=== PATIENT | male | born 2000 | race Caucasian/White ===

== ENCOUNTER 2020-01-29 08:22 | Outpatient (CLI) | payer BC, SELFPAY ==
--- NOTE | ~2020-01-29 | CT_ITS ---
EXAMINATION: CT BRAIN W/O DATE: 01/29/2020 08:38 INDICATION: Contusion to the head. Loss of consciousness. TECHNIQUE: Computed tomography (CT) of the head was performed without intravenous contrast. The dose- length product was 599.57 mGy-cm. The mA was adjusted according to patient size. Iterative reconstruc tion technique was employed. COMPARISON: No prior studies for comparison. FINDINGS: Normal brain parenchymal volume for age. Normal garcia-white differentiation. No acute intrac ranial hemorrhage, infarction, mass or mass effect. There is a focal linear hypodensity in the right frontal lobe, axial image 33 which may represent sequela of remote trauma, infarction or less likely ischemia. No ventriculomegaly or midline shift. Midline sagittal images demonstrate a normal corpus callosum, c raniovertebral junction and sella turcica. Basilar cisterns are patent. Small focal area of soft tiss ue swelling at the parietal vertex. Paranasal sinuses and mastoids are pneumatized. No depressed skull fractures. IMPRESSION: 1. No acute intracranial abnormality. 2: Focal linear hypodensity in the right frontal lobe, axial image 33 which may represent sequela of remote trauma, infarction or less likely ischemia. Reviewed, dictated and finalized at location A.
== END 2020-01-29 08:23 ==
PROVIDERS: Visit Provider Emergency Medicine
DX: R51 Headache (principal)
CPT/HCPCS: 70450

== ENCOUNTER 2020-03-06 15:04 | Emergency (ER) | payer BC, SELFPAY ==
[2020-03-06] VITALS (25 sets, daily range): BP systolic 129–167; BP diastolic 70–107; PULSE 65–96; RESP 12–20; TEMP 36.7; O2SAT 96–100
--- NOTE | ~2020-03-06 | CT_ITS ---
EXAMINATION: CTA chest DATE: 03/06/2020 16:40 [employer] INDICATION: Chest pain TECHNIQUE: Computed tomographic angiography (CTA) of the chest was performed with 100 mL Omnipaque-35 0 intravenous contrast. The dose-length product was 510.45 mGy-cm. Maximum intensity projection 3D-re constructions of the aorta and other arteries were constructed by the technologist on a separate work station. Automated exposure control and iterative reconstruction technique were employed. COMPARISON: None. FINDINGS: No evidence for aortic aneurysm or dissection. Heart size is normal. No significant pleural or pericardial effusion. No thoracic lymphadenopathy. No endobronchial lesions. No focal airspace di sease. No endobronchial lesions. No suspicious pulmonary nodules or masses. Upper abdomen is unremark able. IMPRESSION: 1. No acute cardiopulmonary disease. No evidence for aortic aneurysm or dissection. Reviewed, dictated and finalized at location A. [employer] SUPER[employer] IMPRESSION: 1. No acute cardiopulmonary disease. No evidence for aortic aneurysm or dissect ion.
--- NOTE | 2020-03-06 15:28 | ECG_ITS ---
Measurements Intervals [place] Rate: 80 P: 37 WA: 125 QRS: 69 QRSD: 113 T: -70 QT: 340 QTc: 394 Interpretive Statements SINUS RHYTHM INTRAVENTRICULAR CONDUCTION DELAY DELAYED PRECORDIAL R/S TRANSITION MINIMAL Q WAVES- INFERIOR LEADS ST-T WAVE ABNORMALITY IN INFERIOR LEADS- CONSIDER ISCHEMIA ABNORMAL ECG Electronically Signed On 03-07-2020 7:13:03 [employer] by Eduar Neri D.O.
--- NOTE | 2020-03-06 15:29 | ED.CHESTPAIN ---
HPI - Chest Pain General Chief Complaint: Chest Pain Stated Complaint: chest tightness Time Seen by Provider: 03/06/20 15:15 Source: patient Mode of arrival: ambulatory Limitations: no limitations History of Present Illness HPI narrative: This patient is a 19 year old male with history of low testosterone, coarctation of the aorta s/p repair as a child who presents for evaluation of chest pain. He reports approximately 30 minutes ago he develop chest tightness. He states he was laying in bed when this occurred. He reports a feeling of anxiousness, palpitations, and nauseaousness. He reports his tightness has improved but he still feels it. He also reports pain to left arm. He denies any exacerbating factors. He also notices his legs felt numb at onset but that has resolved. He denies similar symptoms in the past. He denies cough, fever, dizziness or sob. Related Data Allergies Allergy/AdvReac Type Severity Reaction Status Date / Time amoxicillin Allergy Unknown Verified 03/06/20 15:14 Cephalosporins Allergy Unknown Verified 03/06/20 15:14 lisinopril Allergy Unknown Verified 03/06/20 15:14 Review of Systems Review of Systems: All systems reviewed & are unremarkable except as noted in HPI and below Constitutional: Constitutional: Denies chills and Denies fever(s) Cardiovascular: Cardiovascular: Reports chest pain, Reports rapid heart rate and Reports radiating jaw, neck or arm pain Respiratory: Respiratory: Denies cough, Denies dyspnea and Denies wheezing Gastrointestinal: Gastrointestinal: Denies abdominal pain and Reports nausea Musculoskeletal: Musculoskeletal: Denies back pain PMFSH Past Medical History Medical History (Updated 03/07/20 @ 00:00 by Kavya Lopez) Coarctation of aorta, congenital Hypothyroid Low testosterone Surgical History Surgical History (Updated 03/06/20 @ 15:37 by Vidhya Prakash MD) H/O aortic coarctation repair Exam Narrative: Exam Narrative: GENERAL: Well-appearing, well-nourished, and in no acute distress. HEAD: Normocephalic, atraumatic EYES: PERRLA and EOMI, conjunctiva clear without discharge THROAT:Mucous membranes moist, Oropharynx normal without erythema, exudate, peritonsillar swelling or fluctuance NECK: Supple, without lymphadenopathy or mass RESPIRATORY: No respiratory distress, Airway patent, Respirations non-labored, Clear to auscultation without rales, rhonchi or wheeze HEART: Regular rate and rhythm. No murmur heard. Normal peripheral pulses. ABDOMEN: Soft, nontender, nondistended, normal active bowel sounds. No masses. No rebound or guarding, No organomegaly. EXTREMITIES: No edema, normal strength with full range of motion. SKIN: Warm, dry, normal color without rash NEURO: Alert and oriented x3. CN 2-12 grossly intact. No focal deficits. PSYCH: Normal mood and affect. Course Reevaluation(s) Reevaluation #1: Patient reports he feels better. I Discussed labs and CT are unremarkable. HE will follow up with his acute care clinical nurse specialist at [facility] Date: 03/06/20 Time: 18:45 Vital Signs Vital signs: Vital Signs Temperature 98.1 F 03/06/20 15:07 Pulse Rate 89 03/06/20 15:07 Respiratory Rate 14 03/06/20 15:07 Pulse Oximetry 99 03/06/20 15:07 Temperature 98.1 F 03/06/20 15:07 Pulse Rate 84 03/06/20 18:59 Respiratory Rate 12 03/06/20 18:59 Blood Pressure 140/70 03/06/20 18:59 Pulse Oximetry 99 03/06/20 18:59 MDM - Chest Pain Lab Data Attestation: I reviewed the patient's lab results. Result diagrams: 03/06/20 15:41 03/06/20 15:41 Labs: Lab Results 03/06/20 03/06/20 03/06/20 Range/Units 15:41 15:41 15:41 WBC 5.6 (4.5-10.0) K/mm3 RBC 4.80 (4.6-6.20) M/mm3 Hgb 15.8 (14.0-18.0) g/dL Hct 44.8 (42.0-52.0) % MCV 93.3 (80-100) fl MCH 32.9 (26-34) pg MCHC 35.3 (32-36) g/dl RDW 11.5 (11.5-14.5) % Plt Count 149 L (150-375) k/
[2020-03-06 15:55] LABS: Basophils Percent Auto 0.4 % (0.2-1.2); Eosinophils Percent Auto 0.5 % (0-4.4); Hematocrit 44.8 % (42.0-52.0); Hemoglobin 15.8 g/dL (14.0-18.0); Immature Granulocyte Absolute 0.01 K/mm3 (0.00-0.031); Immature Granulocyte Percent A 0.2 % (0-0.5); Lymphocytes Absolute Auto 1.13 K/mm3 (0.9-3.2); Lymphocytes Percent Auto 20.2 % (18.3-44.2); Mean Corpuscular HGB Conc 35.3 g/dl (32-36); Mean Corpuscular Hemoglobin 32.9 pg (26-34); Mean Corpuscular Volume 93.3 fl (80-100); Mean Platelet Volume 11.6 fl (7.4-10.4); Monocytes Absolute Auto 0.4 K/mm3 (0.1-0.6); Monocytes Percent Auto 7.7 % (2.6-8.5); Platelet Count Result 149 k/mm3 (150-375); Red Cell Distribution Width 11.5 % (11.5-14.5); White Blood Count 5.6 K/mm3 (4.5-10.0)
--- NOTE | 2020-03-06 16:04 | PC.NURSE ---
Left Arm BP 151/91 Right Arm BP 129/96 Left Leg BP 167/79 Right Leg BP 155/71
[2020-03-06 16:08] LABS: Anion Gap 9 mmol/L (8-16); Blood Urea Nitrogen 14 mg/dL (9-20); Carbon Dioxide 27 mmol/L (22-30); Chloride 104 mmol/L (98-107); Estimated CRCL calculation 112 ml/min; Estimated Glomerular Filt Rate > 60; Glucose 115 mg/dL (75-110); Potassium 3.8 mmol/L (3.4-5.0); Sodium 140 mmol/L (137-145)
[2020-03-06 16:09] LABS: INR 1.1; Prothrombin Time 13.6 Seconds (11.1-14.7)
[2020-03-06 16:10] LABS: Partial Thromboplastin Time 33.1 SECONDS (22.3-36.8)
[2020-03-06 16:18] LABS: Troponin I < 0.012 ng/mL (0.000-0.034)
[2020-03-06 19:10] LABS: Troponin I < 0.012 ng/mL (0.000-0.034)
== END 2020-03-06 19:25 | disposition home or self-care (01) ==
PROVIDERS: Emergency Provider General Practice
DX: R07.9 Chest pain, unspecified (principal); Z87.74 Personal history of (corrected) congenital malformations of heart and circulatory system; E03.9 Hypothyroidism, unspecified; I45.9 Conduction disorder, unspecified; R94.31 Abnormal electrocardiogram [ECG] [EKG]
CPT/HCPCS: 36415; 71275; 80048; 84484; 85025; 85610; 85730; 93005; 99284; Q9967

== ENCOUNTER 2020-07-12 14:36 | Emergency (ER) | payer OTHER, BC, SELFPAY ==
--- NOTE | ~2020-07-12 | CT_ITS ---
EXAMINATION: CT abdomen pelvis wo con DATE: 07/12/2020 20:46 INDICATION: Left flank pain TECHNIQUE: Computed tomography (CT) of the abdomen and pelvis was performed without intravenous contr ast. The dose-length product was 667.31 mGy-cm. Automated exposure control and iterative reconstructi on technique were employed. COMPARISON: None. FINDINGS: Lung bases are unremarkable. Heart size normal. No significant pleural or pericardial effus ion. The liver, spleen, pancreas, adrenal glands and left kidney are unremarkable. There are are nonobstru cting right renal stones. Gallbladder is present. Bladder is unremarkable. Prostate gland appears enl arged. Nonobstructive bowel gas pattern. No evidence for diverticulitis. Normal appendix. No signific ant vascular abnormality. Gallbladder is present. No lymphadenopathy. No free air or free fluid. No a cute osseous abnormality. IMPRESSION: 1. Nonobstructing right renal stones, largest measuring 2-3 mm. 2: Enlarged prostate gland. Reviewed, dictated and finalized at location A. [employer]
[2020-07-12 14:43] VITALS: BP 143/70; PULSE 77; RESP 20; TEMP 36.6; O2SAT 99
[2020-07-12 15:06] LABS: Basophils Absolute Auto 0.1 K/mm3 (0.0-0.1); Basophils Percent Auto 0.8 % (0.2-1.2); Eosinophils Absolute Auto 0.1 K/mm3 (0-0.3); Hematocrit 42.8 % (42.0-52.0); Immature Granulocyte Absolute 0.01 K/mm3 (0.00-0.031); Immature Granulocyte Percent A 0.2 % (0-0.5); Lymphocytes Absolute Auto 1.36 K/mm3 (0.9-3.2); Lymphocytes Percent Auto 22.5 % (18.3-44.2); Mean Corpuscular Hemoglobin 31.9 pg (26-34); Mean Corpuscular Volume 91.1 fl (80-100); Mean Platelet Volume 11.1 fl (7.4-10.4); Monocytes Absolute Auto 0.4 K/mm3 (0.1-0.6); Monocytes Percent Auto 7.1 % (2.6-8.5); Neutrophils Absolute Auto 4.1 K/mm3 (1.3-6.7); Neutrophils Percent Auto 67.4 % (45.5-73.1); Platelet Count Result 204 k/mm3 (150-375); White Blood Count 6.1 K/mm3 (4.5-10.0)
[2020-07-12 15:14] LABS: Anion Gap 12 mmol/L (8-16); Blood Urea Nitrogen 14 mg/dL (9-20); Calcium 9.3 mg/dL (8.4-10.2); Carbon Dioxide 24 mmol/L (22-30); Chloride 105 mmol/L (98-107); Estimated CRCL calculation 126 ml/min; Estimated Glomerular Filt Rate > 60; Glucose 108 mg/dL (75-110); Potassium 4.2 mmol/L (3.4-5.0); Sodium 141 mmol/L (137-145)
[2020-07-12 16:22] LABS: Add Urine Microscopic? NO; Appearance Urine Clear (Clear); Bilirubin Urine Negative (Negative); Blood Urine Negative (Negative); Color Urine Straw (Yellow); Glucose Urine UA Negative (Negative); Ketones Urine Negative (Negative); Leukocyte Esterase Ur Negative LEU/UL (Negative); Nitrate Urine Negative (Negative); Protein Urine Negative (Negative); Specific Grav Ur 1.008 (1.001-1.035); Urobilinogen Urine Negative mg/dL (<2.0)
[2020-07-12 17:24] VITALS: BP 150/69; PULSE 77; RESP 20; TEMP 36.6; O2SAT 100
[2020-07-12 19:19] VITALS: BP 140/74; PULSE 89; RESP 20; TEMP 36.7; O2SAT 100
--- NOTE | 2020-07-12 19:41 | ED.ABDPAIN ---
HPI - Abdominal Pain General Chief Complaint: Abdominal Pain Stated Complaint: l flank pain/vomiting Time Seen by Provider: 07/12/20 19:17 History of Present Illness HPI narrative: Left flank pain intermittently for several days. Constant with paroxysms since yesterday. At times it radiates into his testicles. Sometimes feels like he needs to urinate and is not able to. Associated with vomiting when the pain is at its worst. He has noted dark urine at times. No obvious blood. Related Data Allergies Allergy/AdvReac Type Severity Reaction Status Date / Time amoxicillin Allergy Unknown Verified 03/06/20 15:14 Cephalosporins Allergy Unknown Verified 03/06/20 15:14 lisinopril Allergy Unknown Verified 03/06/20 15:14 Review of Systems Review of Systems: All systems reviewed & are unremarkable except as noted in HPI and below Constitutional: Constitutional: Denies chills and Denies fever(s) Cardiovascular: Cardiovascular: Denies chest pain Respiratory: Respiratory: Denies dyspnea Gastrointestinal: Gastrointestinal: Denies constipation, Denies diarrhea, Reports nausea and Reports vomiting Genitourinary: Genitourinary: Denies dysuria, Denies penile discharge and Reports testicular pain Neurologic: Denies weakness PMFSH Past Medical History Medical History (Updated 07/12/20 @ 21:24 by Lucio Dsouza MD) Coarctation of aorta, congenital Hypothyroid Low testosterone Surgical History Surgical History (Updated 07/12/20 @ 21:24 by Lucio Dsouza MD) H/O aortic coarctation repair S/P orchiopexy Social History Social History Smoking status: Never smoker Exam Const: General: healthy appearing, no acute distress and alert Orientation/consciousness: patient oriented x3 HENMT: Head: normal to inspection Neck: Neck: normal visual inspection and no lymphadenopathy Chest: Chest palpation & inspection: no tenderness Resp: Effort & Inspection: normal respiratory effort Auscultation: clear to auscultation bilaterally, no rales, no rhonchi and no wheezes Cardio: Jugular venous distension: no JVD Rate: regular rate Rhythm: regular rhythm Heart sounds: no murmurs GI: Inspection: non-distended GI Palp: Yes Soft to palpation and No Tenderness to palpation present (GI) Back/Spine/Pelvis: Back: no CVA tenderness Skin: General skin exam: normal color Neuro: General: patient oriented x3, moves all extremities, no focal motor deficits and CN's II-XI intact bilaterally Speech: normal speech Gait exam (Neuro): Normal gait present Extrem: General: no edema Psych: Appearance: well kempt Affect: normal affect Course Vital Signs Vital signs: Vital Signs Temperature 36.6 C 07/12/20 14:43 Pulse Rate 77 07/12/20 14:43 Respiratory Rate 20 07/12/20 14:43 Blood Pressure 143/70 H 07/12/20 14:43 Pulse Oximetry 99 07/12/20 14:43 Temperature 36.7 C 07/12/20 19:19 Pulse Rate 78 07/12/20 21:08 Respiratory Rate 18 07/12/20 21:08 Blood Pressure 142/78 H 07/12/20 21:08 Pulse Oximetry 99 07/12/20 21:08 MDM - Abdominal Pain MDM Narrative Medical decision making narrative: No stones on the left. I believe that he most likely already passed one given that his symptoms were consistent and he does have multiple on the oposite side. Differential Diagnosis Differential diagnosis: Likely calculus of kidney, constipation and other (low back pain) Medical Records Attestation: I reviewed the patient's medical records. Lab Data Attestation: I reviewed the patient's lab results. Result diagrams: 07/12/20 14:47 07/12/20 14:47 Labs: Lab Results 07/12/20 07/12/20 07/12/20 Range/Units 14:47 14:47 16:10 WBC 6.1 (4.5-10.0) K/mm3 RBC 4.70 (4.6-6.20) M/mm3 Hgb 15.0 (14.0-18.0) g/dL Hct 42.8 (42.0-52.0) % MCV 91.1 (80-100) fl MCH 31.9 (26-34) pg MCHC 35.0 (32-36) g/dl
[2020-07-12] MEDS: KETOROLAC 30 MG/ML VIAL (*BKC) IV PUSH (20:08)
[2020-07-12 21:08] VITALS: BP 142/78; PULSE 78; RESP 18; O2SAT 99
[2020-07-12 21:41] VITALS: BP 142/78; PULSE 80; RESP 18; O2SAT 99
== END 2020-07-12 21:43 | disposition home or self-care (01) ==
PROVIDERS: Emergency Medicine; Emergency Provider Emergency Medicine
DX: N20.0 Calculus of kidney (principal); E03.9 Hypothyroidism, unspecified; Z87.74 Personal history of (corrected) congenital malformations of heart and circulatory system; N40.0 Benign prostatic hyperplasia without lower urinary tract symptoms
CPT/HCPCS: 36415; 74176; 80048; 81003; 85025; 96374; 99284; J1885

== ENCOUNTER 2020-07-21 10:10 | Emergency (ER) | payer OTHER, BC, SELFPAY ==
--- NOTE | ~2020-07-21 | CT_ITS ---
EXAMINATION: CT abdomen pelvis w con DATE: 07/21/2020 11:46 INDICATION: Abdominal pain, nausea, vomiting and diarrhea TECHNIQUE: Computed tomography (CT) of the abdomen and pelvis was performed with 100 mL Omnipaque-350 intravenous contrast. Automated exposure control and iterative reconstruction technique were employe d. The dose-length product was 582.92 mGy-cm. COMPARISON: 07/12/2020 FINDINGS: Lung bases are clear. Heart size is normal. No pericardial or pleural effusion. Liver, gallbladder, s pleen, pancreas, bilateral adrenal glands and kidneys are normal. Bowels including the appendix are n ormal. Bladder and prostate are normal. No free intraperitoneal gas or fluid. No pathologically enlar ged abdominal or pelvic lymphadenopathy. Bilateral L4 pars interarticularis defects without spondylol isthesis. IMPRESSION: 1. No acute intra-abdominal/pelvic process. 2. 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
[2020-07-21 10:17] VITALS: BP 104/79; PULSE 95; RESP 18; TEMP 36.6; O2SAT 100
--- NOTE | 2020-07-21 10:37 | ED.NAVMDI ---
HPI - Nausea/Vomiting/Diarrhea General Chief complaint: Nausea/Vomiting/Diarrhea Stated complaint: vomiting Time Seen by Provider: 07/21/20 10:13 Source: patient Mode of arrival: ambulatory Limitations: no limitations History of Present Illness HPI Narrative: Patient is a 19-year-old male who presents complaining of nausea, vomiting, diarrhea and abdominal pain upon awaking this a.m. He reports he is unable to keep down fluids. He reports abdominal pain is cramping in nature and generalized throughout abdomen. He reports recent history of kidney stones, but states pain is not the same. He denies flank pain or other urinary complaints. She denies known exposure to Covid. MD elicited complaint: nausea, vomiting, diarrhea and abdominal pain Related Data Home Medications Medication Instructions Recorded Confirmed escitalopram oxalate [Lexapro] 10 mg PO DAILY 07/21/20 07/21/20 levothyroxine [Synthroid] 75 mcg PO DAILY 07/21/20 07/21/20 lorazepam [Ativan] 1 mg PO DAILY PRN 07/21/20 07/21/20 pantoprazole [Protonix] 20 mg PO QAM 07/21/20 07/21/20 Allergies Allergy/AdvReac Type Severity Reaction Status Date / Time amoxicillin Allergy Unknown Verified 07/21/20 10:22 Cephalosporins Allergy Unknown Verified 07/21/20 10:22 lisinopril Allergy Unknown Verified 07/21/20 10:22 Review of Systems Review of Systems: Narrative: CONSTITUTIONAL: Denies fever, chills, or sweats. EYES: Denies visual changes, redness, or discharge. ENT: Denies rhinorrhea, congestion, sore throat, or otalgia. CARDIOVASCULAR: Denies chest pain, palpitations, or edema. RESPIRATORY: Denies cough or dyspnea. GASTROINTESTINAL: Reports abdominal pain, nausea, vomiting, and diarrhea starting this a.m. GENITOURINARY: Denies dysuria or hematuria. SKIN: Denies rash or itching. MUSCULOSKELETAL: Denies back pain, joint pain, or myalgia. NEUROLOGIC: Denies headache, numbness, dizziness, or weakness. PSYCHIATRIC: Denies anxiety or depression. [facility] Past Medical History Medical History Coarctation of aorta, congenital Hypothyroid Low testosterone Surgical History Surgical History H/O aortic coarctation repair S/P orchiopexy Social History Social History (Updated 07/21/20 @ 10:40 by PIEDAD Vasquez) Smoking status: Never smoker Alcohol intake: never Substance use: current Substance use type: marijuana Other substance usage details: Occasional usage Living arrangements: with friend(s) Occupation/Education: student Gender identity (if verbalized by the patient): Male Comments At the time of signature, I have reviewed and agree with nursing past medical, surgical, social, and family history unless otherwise noted. Please see nursing chart for further information. There is no relevant family history pertinent to the presenting complaint. Exam Narrative: Exam Narrative: GENERAL: Ill-appearing and uncomfortable but in no acute distress. HEAD: Normocephalic, atraumatic. EYES: No redness or drainage. Conjunctiva are normal. ENT: Mucous membranes pink and moist. Throat normal. Uvula midline. NECK: AROM. Supple. No lymphadenopathy. CHEST: No respiratory distress. Clear to auscultation. HEART: Regular rate and rhythm. GI: Soft, generalized tenderness with palpation, no rebound tenderness. No distention. Bowel sounds normal in all quadrants. MUSCULOSKELETAL: No bony tenderness. EXTREMITIES: Normal range of motion. No edema. SKIN: Warm, dry, no rash. NEURO: No focal deficits. Alert and oriented x3. Gait steady. PSYCH: Normal affect. No signs of depression or anxiety. Course Vital Signs Vital signs: Vital Signs Temperature 36.6 C 07/21/20 10:17 Pulse Rate 95 07/21/20 10:17 Respiratory Rate 18 07/21/20 10:17 Blood Pressure 104/79 07/21/20 10:17 Pulse Oximetry 100 07/21/20 10:17 Temperature 36.6 C
[2020-07-21] MEDS: ONDANSETRON INJ 4 MG/2 ML VIAL IV PUSH ×2 (10:52→11:39)
[2020-07-21] MEDS: SODIUM CHLORIDE 0.9% IV 1,000 ML 999 ML IV CONT ×2 (10:52→11:39)
[2020-07-21 11:02] LABS: Basophils Percent Auto 0.3 % (0.2-1.2); Eosinophils Absolute Auto 0.1 K/mm3 (0-0.3); Eosinophils Percent Auto 1.6 % (0-4.4); Hematocrit 43.8 % (42.0-52.0); Hemoglobin 15.4 g/dL (14.0-18.0); Immature Granulocyte Absolute 0.05 K/mm3 (0.00-0.031); Immature Granulocyte Percent A 0.6 % (0-0.5); Lymphocytes Absolute Auto 1.02 K/mm3 (0.9-3.2); Lymphocytes Percent Auto 11.6 % (18.3-44.2); Mean Corpuscular HGB Conc 35.2 g/dl (32-36); Mean Corpuscular Hemoglobin 32.6 pg (26-34); Mean Corpuscular Volume 92.6 fl (80-100); Mean Platelet Volume 11.5 fl (7.4-10.4); Monocytes Absolute Auto 0.4 K/mm3 (0.1-0.6); Monocytes Percent Auto 4.4 % (2.6-8.5); Neutrophils Absolute Auto 7.2 K/mm3 (1.3-6.7); Neutrophils Percent Auto 81.5 % (45.5-73.1); Platelet Count Result 213 k/mm3 (150-375); Red Blood Count 4.73 M/mm3 (4.6-6.20); Red Cell Distribution Width 11.3 % (11.5-14.5); White Blood Count 8.8 K/mm3 (4.5-10.0)
[2020-07-21 11:11] LABS: Add Urine Microscopic? YES; Appearance Urine Clear (Clear); Bacteria Urine Trace /hpf; Bilirubin Urine Negative (Negative); Blood Urine Negative (Negative); Color Urine Yellow (Yellow); Glucose Urine UA Negative (Negative); Ketones Urine Negative (Negative); Leukocyte Esterase Ur Negative LEU/UL (Negative); Mucus Urine Rare /lpf; Nitrate Urine Negative (Negative); Protein Urine 1+ mg/dL (Negative); RBC Urine 0-2 /hpf (0-2); Specific Grav Ur 1.019 (1.001-1.035); Urobilinogen Urine Negative mg/dL (<2.0); WBC Urine 0-3 /hpf
[2020-07-21 11:16] LABS: Alanine Aminotransferase 13 U/L (4-50); Alkaline Phosphatase 69 U/L (38-126); Anion Gap 10 mmol/L (8-16); Aspartate Amino Transferase 38 U/L (17-59); Bilirubin,Total 0.6 mg/dL (0.2-1.3); Blood Urea Nitrogen 17 mg/dL (9-20); Calcium 9.7 mg/dL (8.4-10.2); Carbon Dioxide 26 mmol/L (22-30); Chloride 105 mmol/L (98-107); Estimated CRCL calculation 111 ml/min; Estimated Glomerular Filt Rate > 60; Glucose 109 mg/dL (75-110); Lipase 199 U/L (23-300); Potassium 3.7 mmol/L (3.4-5.0); Sodium 141 mmol/L (137-145)
--- NOTE | 2020-07-21 11:39 | PC.NURSE ---
Pt to CT scan at this time.
[2020-07-21 12:02] VITALS: BP 134/75; PULSE 93; RESP 17; O2SAT 100
[2020-07-21] MEDS: PROMETHAZINE HCL 25 MG/ML AMPUL 12.5 MG IV PUSH (12:02)
[2020-07-21] MEDS: KETOROLAC 30 MG/ML VIAL (*BKC) IV PUSH (12:02)
[2020-07-21 13:12] VITALS: BP 124/89; PULSE 89; RESP 17; O2SAT 98
[2020-07-22 19:28] LABS: SARS-CoV-2 RNA PCR Negative
== END 2020-07-21 13:13 | disposition home or self-care (01) ==
PROVIDERS: Emergency Provider Nurse Practitioner; PCP Family Medicine
DX: K52.9 Noninfective gastroenteritis and colitis, unspecified (principal); Z20.822 Contact with and (suspected) exposure to COVID-19; E03.9 Hypothyroidism, unspecified; Z87.74 Personal history of (corrected) congenital malformations of heart and circulatory system
CPT/HCPCS: 36415; 74177; 80053; 81001; 83690; 85025; 96361; 96374; 96375; 96376; 99284; C9803; J1885; J2405; J2550; J7030; Q9967; U0003; U0005

== ENCOUNTER 2021-06-06 10:09 | Emergency (ER) | payer OTHER, BC, SELFPAY ==
[2021-06-06 10:15] VITALS: BP 152/104; PULSE 89; RESP 18; TEMP 36.6; O2SAT 100
[2021-06-06] MEDS: SODIUM CHLORIDE 0.9% IV 1,000 ML 999 ML IV CONT (11:40)
[2021-06-06] MEDS: PROMETHAZINE HCL 25 MG/ML AMPUL 12.5 MG IV PUSH (11:40)
--- NOTE | 2021-06-06 11:51 | ED.NAVMDI ---
HPI - Nausea/Vomiting/Diarrhea General Chief complaint: Nausea/Vomiting/Diarrhea Stated complaint: nausea vomiting Time Seen by Provider: 06/06/21 11:07 History of Present Illness HPI Narrative: Patient is a 20-year-old male who presents ER with nausea and vomiting and diarrhea. Ongoing for 3 days. Endorses sweats and chills. Also has positional dizziness. No resolution with Zofran at home. No known sick contacts. No blood in stool or emesis. Denies loss of taste or smell. Has burning acid discomfort in chest. Related Data Home Medications Medication Instructions Recorded Confirmed escitalopram oxalate [Lexapro] 10 mg PO DAILY 07/21/20 07/21/20 levothyroxine [Synthroid] 75 mcg PO DAILY 07/21/20 07/21/20 lorazepam [Ativan] 1 mg PO DAILY PRN 07/21/20 07/21/20 pantoprazole [Protonix] 20 mg PO QAM 07/21/20 07/21/20 Allergies Allergy/AdvReac Type Severity Reaction Status Date / Time amoxicillin Allergy Unknown Verified 07/21/20 10:22 Cephalosporins Allergy Unknown Verified 07/21/20 10:22 lisinopril Allergy Unknown Verified 07/21/20 10:22 Review of Systems Review of Systems: All systems reviewed & are unremarkable except as noted in HPI and below Constitutional: Constitutional: Reports chills, Reports fatigue and Reports fever(s) ENT: Denies nasal congestion and Denies sore throat Cardiovascular: Cardiovascular: Denies chest pain, Denies rapid heart rate and Denies radiating jaw, neck or arm pain Respiratory: Respiratory: Denies cough and Denies dyspnea Gastrointestinal: Gastrointestinal: Reports abdominal pain, Reports heartburn, Reports diarrhea, Reports nausea and Reports vomiting Neurologic: Reports dizziness, Denies focal weakness and Denies numbness PMFSH Past Medical History Medical History (Updated 06/06/21 @ 13:43 by Tonny Feliz MD) Coarctation of aorta, congenital Hypothyroid Low testosterone Surgical History Surgical History (Updated 06/06/21 @ 11:54 by Tonny Feliz MD) H/O aortic coarctation repair History of repair of pyloric stenosis S/P orchiopexy Social History Social History (Updated 07/21/20 @ 10:40 by Harriet Ramirez, W[employer] PROCESSOR TECHNICIAN) Smoking status: Never smoker Alcohol intake: never Substance use: current Substance use type: marijuana Other substance usage details: Occasional usage Gender identity (if verbalized by the patient): Male Exam Narrative: GENERAL: Well-appearing, well-nourished, and in no acute distress. HEAD: Normocephalic, atraumatic. EYES: PERRL and EOMI. ENT: Mucous membranes moist. CHEST: Clear to auscultation. No respiratory distress. HEART: Regular rate and rhythm. Normal peripheral pulses. ABDOMEN: Soft, mild tenderness without guarding in epigastrium and left upper quadrant nondistended, normal active bowel sounds. EXTREMITIES: Normal range of motion. No edema. SKIN: Warm, dry, no rash. NEURO: Alert and oriented x3. Course Course Emergency Course: Patient reports emesis improved after administration of Phenergan. Exam benign and labs within normal limits. Discharge home with Phenergan to take in addition to his Zofran. Vital Signs Vital signs: Vital Signs Temperature 97.8 F 06/06/21 10:15 Pulse Rate 89 06/06/21 10:15 Respiratory Rate 18 06/06/21 10:15 Blood Pressure 152/104 H 06/06/21 10:15 Pulse Oximetry 100 06/06/21 10:15 Temperature 97.8 F 06/06/21 10:15 Pulse Rate 81 06/06/21 13:07 Respiratory Rate 18 06/06/21 10:15 Blood Pressure 150/93 H 06/06/21 13:07 Pulse Oximetry 100 06/06/21 10:15 MDM - Nausea/Vomiting/Diarrhea Lab Data Result diagrams: 06/06/21 11:46 06/06/21 11:46 Labs: Lab Results 06/06/21 06/06/21 Range/Units 11:46 11:46 WBC 9.7 (4.5-10.0) K/mm3 RBC 4.64 (4.6-6.20) M/mm3 Hgb 15.1 (14.0-18.0) g/dL Hct 42.8 (42.0-52.0) % MCV 92.2 (80-100) fl MCH 32.5 (26-34) pg MCHC 35.3 (32-36) g/dl RDW 11.3 L (
[2021-06-06 12:01] LABS: Basophils Percent Auto 0.4 % (0.2-1.2); Eosinophils Absolute Auto 0.1 K/mm3 (0-0.3); Eosinophils Percent Auto 0.5 % (0-4.4); Hematocrit 42.8 % (42.0-52.0); Hemoglobin 15.1 g/dL (14.0-18.0); Immature Granulocyte Absolute 0.04 K/mm3 (0.00-0.031); Immature Granulocyte Percent A 0.4 % (0-0.5); Lymphocytes Absolute Auto 0.96 K/mm3 (0.9-3.2); Lymphocytes Percent Auto 9.9 % (18.3-44.2); Mean Corpuscular HGB Conc 35.3 g/dl (32-36); Mean Corpuscular Hemoglobin 32.5 pg (26-34); Mean Corpuscular Volume 92.2 fl (80-100); Mean Platelet Volume 11.6 fl (7.4-10.4); Monocytes Absolute Auto 0.5 K/mm3 (0.1-0.6); Monocytes Percent Auto 5.5 % (2.6-8.5); Neutrophils Absolute Auto 8.1 K/mm3 (1.3-6.7); Neutrophils Percent Auto 83.3 % (45.5-73.1); Platelet Count Result 207 k/mm3 (150-375); Red Blood Count 4.64 M/mm3 (4.6-6.20); Red Cell Distribution Width 11.3 % (11.5-14.5); White Blood Count 9.7 K/mm3 (4.5-10.0)
[2021-06-06 12:10] LABS: Alanine Aminotransferase 20 U/L (4-50); Albumin Level 5.4 g/dL (3.5-5.1); Alkaline Phosphatase 69 U/L (38-126); Anion Gap 11 mmol/L (8-16); Aspartate Amino Transferase 36 U/L (17-59); Bilirubin,Total 0.8 mg/dL (0.2-1.3); Blood Urea Nitrogen 18 mg/dL (9-20); Calcium 10.2 mg/dL (8.4-10.2); Carbon Dioxide 23 mmol/L (22-30); Chloride 105 mmol/L (98-107); Estimated CRCL calculation 125 ml/min; Estimated Glomerular Filt Rate > 60; Glucose 122 mg/dL (65-110); Lipase 84 U/L (23-300); Sodium 139 mmol/L (137-145)
[2021-06-06 13:06] VITALS: BP 138/83; PULSE 75
[2021-06-06 13:07] VITALS: BP 146/92; BP 150/93; PULSE 73; PULSE 81
[2021-06-06 13:57] VITALS: BP 132/88; PULSE 78; RESP 18; O2SAT 98
== END 2021-06-06 13:59 | disposition home or self-care (01) ==
PROVIDERS: Emergency Provider Emergency Medicine
DX: K52.9 Noninfective gastroenteritis and colitis, unspecified (principal); E03.9 Hypothyroidism, unspecified
CPT/HCPCS: 36415; 80053; 83690; 85025; 96361; 96374; 99284; J2550; J7030

== ENCOUNTER 2021-09-17 17:07 | Emergency (ER) | payer BC, SELFPAY ==
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
[2021-09-17 17:10] VITALS: BP 165/86; PULSE 97; RESP 16; TEMP 36.2; O2SAT 100
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
[2021-09-17 18:17] LABS: Hematocrit 45.4 % (42.0-52.0); Hemoglobin 15.6 g/dL (14.0-18.0); Mean Corpuscular HGB Conc 34.4 g/dl (32-36); Mean Corpuscular Hemoglobin 31.3 pg (26-34); Mean Platelet Volume 10.8 fl (7.4-10.4); Platelet Count Result 243 k/mm3 (150-375); Red Blood Count 4.99 M/mm3 (4.6-6.20); Red Cell Distribution Width 11.9 % (11.5-14.5); White Blood Count 20.4 K/mm3 (4.5-10.0)
[2021-09-17] MEDS: SODIUM CHLORIDE 0.9% IV 1,000 ML 999 ML IV CONT (18:22)
[2021-09-17 18:28] VITALS: BP 146/91; PULSE 84; RESP 20; O2SAT 100
[2021-09-17 18:38] LABS: Lymphocytes Absolute Manual 1.02 K/mm3 (1.1-4.5); Monocytes Percent Manual 1 % (3-9); Neutrophils Percent Manual 94 % (46-73); Platelet Estimate Adequate (Adequate); Total Cells Counted 100
[2021-09-17 18:39] LABS: Alanine Aminotransferase 30 U/L (6-50); Alkaline Phosphatase 77 U/L (38-126); Anion Gap 19 mmol/L (8-16); Aspartate Amino Transferase 46 U/L (17-59); Bilirubin,Total 0.7 mg/dL (0.2-1.3); Blood Urea Nitrogen 17 mg/dL (9-20); Calcium 10.2 mg/dL (8.4-10.2); Carbon Dioxide 20 mmol/L (22-30); Chloride 106 mmol/L (98-107); Estimated CRCL calculation 122 ml/min; Estimated Glomerular Filt Rate > 60; Glucose 123 mg/dL (65-110); Potassium 4.3 mmol/L (3.4-5.0); Sodium 145 mmol/L (137-145)
[2021-09-17 19:17] LABS: Albumin Level > 6.0 g/dL (3.5-5.1)
--- NOTE | 2021-09-17 19:17 | PC.NURSE ---
Assuming care of pt.
[2021-09-17 19:21] VITALS: BP 125/78; PULSE 97; RESP 18; O2SAT 100
[2021-09-17 19:55] LABS: Appearance Urine Clear (Clear); Bilirubin Urine Negative (Negative); Color Urine Yellow (Yellow); Glucose Urine UA Negative (Negative); Ketones Urine 2+ mg/dL (Negative); Leukocyte Esterase Ur Negative LEU/UL (Negative); Nitrate Urine Negative (Negative); Protein Urine 1+ mg/dL (Negative); Specific Grav Ur >= 1.030 (1.001-1.035); Urobilinogen Urine 0.2 mg/dL (<2.0); pH Urine 5.5 (5.0-9.0)
[2021-09-17 19:57] LABS: Add Urine Microscopic? YES; Blood Urine Trace-Intact (Negative)
--- NOTE | 2021-09-17 19:57 | PC.NURSE ---
Addendum entered by Nicky Suresh RN 09/17/21 20:00: Correction [employer] collar from [employer]., Original Note: [employer] to bring up soft neck collar for pt.
[2021-09-17 20:04] LABS: Mucus Urine Rare /lpf; WBC Urine 0-3 /hpf
[2021-09-17] MEDS: ONDANSETRON INJ 4 MG/2 ML VIAL IV PUSH (20:14)
[2021-09-17] MEDS: KETOROLAC 30 MG/ML VIAL (*BKC) IV PUSH (20:34)
[2021-09-17] MEDS: methocarbamoL 500 MG TABLET PO (20:34)
[2021-09-17 20:57] VITALS: BP 124/67; PULSE 86; RESP 18; O2SAT 100
== END 2021-09-17 20:58 | disposition home or self-care (01) ==
PROVIDERS: Emergency Provider Nurse Practitioner Family
DX: S13.4XXA Sprain of ligaments of cervical spine, initial encounter (principal); S60.221A Contusion of right hand, initial encounter; S09.90XA Unspecified injury of head, initial encounter; E03.9 Hypothyroidism, unspecified; Z87.74 Personal history of (corrected) congenital malformations of heart and circulatory system; V48.5XXA Car driver injured in noncollision transport accident in traffic accident, initial encounter
CPT/HCPCS: 36415; 70450; 71260; 72125; 73130; 74177; 80053; 81001; 85025; 96361; 96374; 96375; 99284; A9270; J1885; J2405; J7030; L0140; Q9967

== ENCOUNTER 2021-10-28 16:16 | Emergency (ER) | payer BC, SELFPAY ==
--- NOTE | ~2021-10-28 | CT_ITS ---
EXAMINATION: CT abdomen pelvis w con DATE: 10/28/2021 18:07 INDICATION: abd pain TECHNIQUE: Computed tomography (CT) of the abdomen and pelvis was performed with 100 mL Omnipaque-300 intravenous contrast. Automated exposure control and iterative reconstruction technique were employe d. The dose-length product was 810.14 mGy-cm. COMPARISON: 09/17/2021. FINDINGS: Lower thorax: Unremarkable Liver: Normal. Biliary/Gallbladder: Gallbladder is normal. No bile duct dilation. Pancreas: No mass or duct dilation. Spleen: Normal. Adrenals:No mass. Kidneys: No mass, stone, or hydronephrosis. GI tract: No small or large bowel dilation. Normal appendix. Mesentery/Peritoneum: No ascites, mass, or free air. Retroperitoneum: No mass. Pelvis: Pelvic organs are within normal limits. Soft Tissues: Soft tissues and body wall unremarkable. Bones: No acute osseous finding. IMPRESSION: No acute abdominopelvic process. Reviewed, dictated and finalized at location K.
[2021-10-28 16:25] VITALS: BP 159/83; PULSE 87; RESP 16; TEMP 36.6; O2SAT 100
--- NOTE | 2021-10-28 16:42 | ED.GENADULT ---
HPI - General Adult General Chief complaint: Nausea/Vomiting/Diarrhea Stated complaint: vomiting since 0800 Time Seen by Provider: 10/28/21 16:29 Source: RN notes reviewed History of Present Illness HPI narrative: Patient presents emergency department from home for nausea vomiting diarrhea. Patient states symptoms again approximately 7 AM this morning. States he had numerous episodes of nausea vomiting as well as diarrhea. States is associated with abdominal pain described as cramping denies any fevers or chills chest pain shortness of breath or any other symptoms. States he not taking thing for the symptoms at home denies any other symptoms at this time Related Data Home Medications Medication Instructions Recorded Confirmed escitalopram oxalate 10 mg tablet 10 mg PO DAILY 07/21/20 07/21/20 (Lexapro) levothyroxine 75 mcg tablet 75 mcg PO DAILY 07/21/20 07/21/20 (Synthroid) lorazepam 1 mg tablet (Ativan) 1 mg PO DAILY PRN Anxiety 07/21/20 07/21/20 pantoprazole 20 mg tablet,delayed 20 mg PO QAM 07/21/20 07/21/20 release (Protonix) Allergies Allergy/AdvReac Type Severity Reaction Status Date / Time amoxicillin Allergy Unknown Verified 10/28/21 16:32 Cephalosporins Allergy Unknown Verified 10/28/21 16:32 lisinopril Allergy Unknown Verified 10/28/21 16:32 Review of Systems Review of Systems: Gen.: Denies fevers or chills ENT: Denies congestion Respiratory: Denies shortness of breath or cough CV: Denies chest pain or palpitations GI: See HPI Musculoskeletal: Denies back pain or muscle pain Neuro: Denies numbness, tingling, weakness or focal weakness Skin: Denies rash Except as documented, all other systems reviewed and negative [facility] Past Medical History Medical History Coarctation of aorta, congenital Hypothyroid Low testosterone Surgical History Surgical History H/O aortic coarctation repair History of repair of pyloric stenosis S/P orchiopexy Social History Social History Smoking status: Never smoker Alcohol intake: never Substance use: current Substance use type: marijuana Other substance usage details: Occasional usage Gender identity (if verbalized by the patient): Male Exam Narrative: APPEARANCE: No acute distress, nontoxic, resting in bed EYES: EOMI HEENT: Normocephalic, atraumatic, OMM RESPIRATORY: No respiratory distress Clear to auscultation bilaterally with no rhonchi wheezing or rales. CARDIOVASCULAR: Regular rate and rhythm without murmurs rubs or gallops. ABDOMINAL: Soft, nondistended mild diffuse tenderness palpation no rebound or guarding MUSCULOSKELETAl: Moves all extremities. No clubbing, cyanosis or edema. NEURO: Awake and alert. Following commands, speech normal, no focal deficits SKIN:: Warm, dry. No rashes lesions or abrasions PSYCHIATRIC: Normal affect/mood, Course Course Emergency Course: Reviewed old records patient with elevated white count on last visit of 09/17/2021 of 20 at that time Patient states he is feeling much better this time ready for discharge Patient states that they are feeling much better at this time. States abdominal pain has resolved. Repeat abdominal exam shows the patient's abdomen to be soft and nontender. Discussed with patient results of workup and diagnosis. Discussed need for follow-up with primary care physician, reasons to return to the emergency department in proper use of medication. Patient understands and agrees to current treatment plan Vital Signs Vital signs: Vital Signs Temperature 97.8 F 10/28/21 16:25 Pulse Rate 87 10/28/21 16:25 Respiratory Rate 16 10/28/21 16:25 Blood Pressure 159/83 H 10/28/21 16:25 Pulse Oximetry 100 10/28/21 16:25 Oxygen Delivery Room Air 10/28/21 16:25 Temperature 97.8 F 10/28/21 16:25 Pulse Rate
[2021-10-28 16:53] LABS: Basophils Percent Auto 0.2 % (0.2-1.2); Hemoglobin 15.2 g/dL (14.0-18.0); Immature Granulocyte Absolute 0.11 K/mm3 (0.00-0.031); Immature Granulocyte Percent A 0.5 % (0-0.5); Lymphocytes Absolute Auto 0.56 K/mm3 (0.9-3.2); Lymphocytes Percent Auto 2.6 % (18.3-44.2); Mean Corpuscular HGB Conc 35.3 g/dl (32-36); Mean Corpuscular Hemoglobin 31.4 pg (26-34); Mean Corpuscular Volume 88.8 fl (80-100); Mean Platelet Volume 11.1 fl (7.4-10.4); Monocytes Absolute Auto 0.6 K/mm3 (0.1-0.6); Monocytes Percent Auto 2.8 % (2.6-8.5); Neutrophils Absolute Auto 20.1 K/mm3 (1.3-6.7); Neutrophils Percent Auto 93.9 % (45.5-73.1); Platelet Count Result 251 k/mm3 (150-375); Red Blood Count 4.84 M/mm3 (4.6-6.20); Red Cell Distribution Width 11.5 % (11.5-14.5); White Blood Count 21.4 K/mm3 (4.5-10.0)
[2021-10-28] MEDS: SODIUM CHLORIDE 0.9% IV 1,000 ML 999 ML IV CONT ×2 (16:56→18:15)
[2021-10-28] MEDS: KETOROLAC 30 MG/ML VIAL (*BKC) IV PUSH (16:57)
[2021-10-28] MEDS: FAMOTIDINE 20 MG/2 ML VIAL IV PUSH (17:00)
[2021-10-28 17:06] LABS: Alanine Aminotransferase 26 U/L (6-50); Albumin Level 5.6 g/dL (3.5-5.1); Alkaline Phosphatase 79 U/L (38-126); Anion Gap 13 mmol/L (8-16); Aspartate Amino Transferase 33 U/L (17-59); Bilirubin,Total 0.9 mg/dL (0.2-1.3); Blood Urea Nitrogen 18 mg/dL (9-20); Calcium 10.6 mg/dL (8.4-10.2); Carbon Dioxide 19 mmol/L (22-30); Chloride 112 mmol/L (98-107); Estimated CRCL calculation 114 ml/min; Estimated Glomerular Filt Rate > 60; Glucose 138 mg/dL (65-110); Lipase 36 U/L (23-300); Potassium 3.7 mmol/L (3.4-5.0); Sodium 144 mmol/L (137-145)
[2021-10-28] MEDS: PROMETHAZINE HCL 25 MG/ML AMPUL 12.5 MG IV PUSH (17:07)
--- NOTE | 2021-10-28 18:16 | PC.NURSE ---
Pt not able to urinate at this time, does not want the straight cath asking for more time.
[2021-10-28 19:14] LABS: Appearance Urine Clear (Clear); Bilirubin Urine Negative (Negative); Blood Urine Negative (Negative); Color Urine Yellow (Yellow); Glucose Urine UA Negative (Negative); Ketones Urine Trace mg/dL (Negative); Leukocyte Esterase Ur Negative LEU/UL (Negative); Nitrate Urine Negative (Negative); Protein Urine Negative (Negative); Urobilinogen Urine 0.2 mg/dL (<2.0); pH Urine 8.5 (5.0-9.0)
[2021-10-28 19:24] LABS: Mucus Urine Rare /lpf; RBC Urine 0-2 /hpf (0-2); Squamous Epithelial Cell Urine Rare /hpf (Few); WBC Urine 0-3 /hpf
[2021-10-28] MEDS: LORazepam INJ (*CRX) 2 MG/ML VIAL 0.5 MG IV PUSH (19:27)
--- NOTE | 2021-10-28 19:33 | PC.NURSE ---
Pt has readily admitted to going to [employer] for the purpose of getting and smoking weed at least once a week.
[2021-10-28 19:34] LABS: Add Urine Microscopic? YES
[2021-10-28 20:46] VITALS: BP 148/86; PULSE 76; RESP 20
== END 2021-10-28 20:47 | disposition home or self-care (01) ==
PROVIDERS: Emergency Provider Emergency Medicine
DX: R11.2 Nausea with vomiting, unspecified (principal); R10.84 Generalized abdominal pain; E03.9 Hypothyroidism, unspecified; Z87.74 Personal history of (corrected) congenital malformations of heart and circulatory system
CPT/HCPCS: 36415; 74177; 80053; 81001; 83690; 85025; 96361; 96374; 96375; 99284; J1885; J2060; J2550; J7030; Q9967

== ENCOUNTER 2021-10-30 11:23 | Emergency (ER) | payer BC, SELFPAY ==
--- NOTE | ~2021-10-30 | US_ITS ---
EXAMINATION: US abdomen limited DATE: 10/30/2021 13:34 INDICATION: Right upper quadrant pain TECHNIQUE: Multiple grayscale and Doppler ultrasound images of the abdomen were obtained. COMPARISON: CT, 10/28/2021 FINDINGS: Bowel gas obscures visualization of the pancreas. The visualized portions of the pancreas a re unremarkable. The liver is normal with normal echogenicity and echotexture. No surface nodularity. Normal hepatopetal flow in the main portal vein. The gallbladder is normal with no abnormal wall thi ckening, pericholecystic fluid or stones. The normal common bile duct measures 4 mm. There was no son ographic Solano sign. IMPRESSION: 1. Normal sonographic study of the gallbladder. Reviewed, dictated and finalized at location A.
[2021-10-30 11:27] VITALS: BP 162/89; PULSE 68; RESP 18; TEMP 36.6; O2SAT 100
[2021-10-30 11:42] LABS: Basophils Absolute Auto 0.1 K/mm3 (0.0-0.1); Basophils Percent Auto 0.5 % (0.2-1.2); Eosinophils Percent Auto 0.3 % (0-4.4); Hematocrit 39.5 % (42.0-52.0); Hemoglobin 13.9 g/dL (14.0-18.0); Immature Granulocyte Absolute 0.04 K/mm3 (0.00-0.031); Immature Granulocyte Percent A 0.3 % (0-0.5); Lymphocytes Absolute Auto 1.29 K/mm3 (0.9-3.2); Lymphocytes Percent Auto 9.5 % (18.3-44.2); Mean Corpuscular HGB Conc 35.2 g/dl (32-36); Mean Corpuscular Hemoglobin 31.4 pg (26-34); Mean Corpuscular Volume 89.2 fl (80-100); Mean Platelet Volume 10.8 fl (7.4-10.4); Monocytes Absolute Auto 0.8 K/mm3 (0.1-0.6); Monocytes Percent Auto 5.8 % (2.6-8.5); Neutrophils Absolute Auto 11.3 K/mm3 (1.3-6.7); Neutrophils Percent Auto 83.6 % (45.5-73.1); Platelet Count Result 223 k/mm3 (150-375); Red Blood Count 4.43 M/mm3 (4.6-6.20); Red Cell Distribution Width 11.4 % (11.5-14.5); White Blood Count 13.5 K/mm3 (4.5-10.0)
[2021-10-30 11:52] LABS: Alanine Aminotransferase 16 U/L (6-50); Albumin Level 5.1 g/dL (3.5-5.1); Alkaline Phosphatase 65 U/L (38-126); Anion Gap 10 mmol/L (8-16); Aspartate Amino Transferase 34 U/L (17-59); Bilirubin,Total 1.4 mg/dL (0.2-1.3); Blood Urea Nitrogen 17 mg/dL (9-20); Calcium 9.7 mg/dL (8.4-10.2); Carbon Dioxide 20 mmol/L (22-30); Chloride 111 mmol/L (98-107); Estimated CRCL calculation 112 ml/min; Estimated Glomerular Filt Rate > 60; Glucose 112 mg/dL (65-110); Lipase 69 U/L (23-300); Potassium 3.3 mmol/L (3.4-5.0); Sodium 141 mmol/L (137-145)
--- NOTE | 2021-10-30 12:34 | ED.NAVMDI ---
HPI - Nausea/Vomiting/Diarrhea General Chief complaint: Nausea/Vomiting/Diarrhea Stated complaint: nausea and vomiting Time Seen by Provider: 10/30/21 12:26 History of Present Illness HPI Narrative: 21-year-old male here for evaluation of nausea vomiting and diarrhea for the past 10 days. Reports about 3 episodes of vomiting nonbloody/nonbilious emesis today and 1 episode of loose stool this morning. Attempted rectal Compazine without relief this morning. Denies fevers, chills. He does smoke marijuana. States that he is presenting to the emergency department for this issue numerous times in the past, his CT scans have been normal. He also follows with GI specialist for this issue, work-up so far has been unrevealing. Related Data Home Medications Medication Instructions Recorded Confirmed escitalopram oxalate 10 mg tablet 10 mg PO DAILY 07/21/20 07/21/20 (Lexapro) levothyroxine 75 mcg tablet 75 mcg PO DAILY 07/21/20 07/21/20 (Synthroid) lorazepam 1 mg tablet (Ativan) 1 mg PO DAILY PRN Anxiety 07/21/20 07/21/20 pantoprazole 20 mg tablet,delayed 20 mg PO QAM 07/21/20 07/21/20 release (Protonix) Allergies Allergy/AdvReac Type Severity Reaction Status Date / Time amoxicillin Allergy Unknown Verified 10/28/21 16:32 Cephalosporins Allergy Unknown Verified 10/28/21 16:32 lisinopril Allergy Unknown Verified 10/28/21 16:32 Review of Systems Review of Systems: Gen.: Denies fevers or chills Eyes: Denies eye pain or visual change ENT: Denies congestion Respiratory: Denies shortness of breath or cough CV: Denies chest pain or palpitations GI: Reports abdominal pain, nausea, emesis and diarrhea denies burning, urgency, frequency or hematuria Musculoskeletal: Denies back pain or muscle pain Neuro: Denies numbness, tingling, weakness or focal weakness Skin: Denies rash Except as documented, all other systems reviewed and negative [facility] Past Medical History Medical History Coarctation of aorta, congenital Hypothyroid Low testosterone Surgical History Surgical History H/O aortic coarctation repair History of repair of pyloric stenosis S/P orchiopexy Social History Social History Smoking status: Never smoker Alcohol intake: never Substance use: current Substance use type: marijuana Other substance usage details: Occasional usage Gender identity (if verbalized by the patient): Male Exam Narrative: APPEARANCE: Well appearing, no pain in distress, well-nourished. Head: Normocephalic and atraumatic. EYES: PERRLA/EOMI, conjunctivae clear NOSE: No nasal drainage EARS: External ear normal in appearance THROAT: Oropharynx is clear. Mucous membranes are moist. NECK: Supple. No adenopathy, no masses. RESPIRATORY: Airway patent, respirations nonlabored. Clear to auscultation bilaterally, no rales, rhonchi, wheezing. CARDIOVASCULAR: Regular rate and rhythm without murmurs, rubs, or gallops. ABDOMINAL: Tender to palpation in the upper abdomen. Normoactive bowel sounds. Soft, nondistended. No rebound tenderness or guarding. MUSCULOSKELETAL: Extremities are warm and well-perfused. Moves all extremities well. No edema. NEURO: Normal speech. No focal neurologic deficits. SKIN: Skin is warm and dry. No rashes. PSYCHIATRIC: Normal affect/mood. Course Vital Signs Vital signs: Vital Signs Temperature 97.9 F 10/30/21 11:27 Pulse Rate 68 10/30/21 11:27 Respiratory Rate 18 10/30/21 11:27 Blood Pressure 162/89 H 10/30/21 11:27 Pulse Oximetry 100 10/30/21 11:27 Oxygen Delivery Room Air 10/30/21 11:27 Temperature 97.9 F 10/30/21 11:27 Pulse Rate 68 10/30/21 11:27 Respiratory Rate 18 10/30/21 11:27 Blood Pressure 162/89 H 10/30/21 11:27 Pulse Oximetry 100 10/30/21 11:27 Oxygen Delivery Room Air
[2021-10-30] MEDS: PROMETHAZINE HCL 25 MG/ML AMPUL 12.5 MG IV PUSH (12:54)
[2021-10-30] MEDS: SODIUM CHLORIDE 0.9% IV 1,000 ML 999 ML IV CONT ×2 (12:55→14:21)
[2021-10-30] MEDS: PROCHLORPERAZINE EDISYLATE 10 MG/2 ML VIAL IV PUSH (14:20)
[2021-10-30] MEDS: diphenhydrAMINE HCl INJ 50 MG/ML VIAL 12.5 MG IV PUSH (14:20)
[2021-10-30 14:22] LABS: Appearance Urine Clear (Clear); Bilirubin Urine 1+ (Negative); Blood Urine Negative (Negative); Color Urine Yellow (Yellow); Glucose Urine UA Negative (Negative); Ketones Urine 3+ mg/dL (Negative); Leukocyte Esterase Ur Negative LEU/UL (Negative); Nitrate Urine Negative (Negative); Protein Urine Negative (Negative); Specific Grav Ur >= 1.030 (1.001-1.035); Urobilinogen Urine 0.2 mg/dL (<2.0)
[2021-10-30 14:26] LABS: Bacteria Urine Trace /hpf; Mucus Urine Rare /lpf; RBC Urine 0-2 /hpf (0-2); WBC Urine 0-3 /hpf
[2021-10-30 14:31] LABS: Add Urine Microscopic? YES
== END 2021-10-30 16:53 | disposition home or self-care (01) ==
PROVIDERS: Emergency Medicine; Emergency Provider Emergency Medicine
DX: R11.2 Nausea with vomiting, unspecified (principal); E03.9 Hypothyroidism, unspecified; Z87.74 Personal history of (corrected) congenital malformations of heart and circulatory system
CPT/HCPCS: 36415; 76705; 80053; 81001; 83690; 85025; 96361; 96374; 96375; 99284; J0780; J1200; J2550; J7030

== ENCOUNTER 2022-03-28 12:57 | Outpatient (CLI) | payer BC, SELFPAY ==
--- NOTE | ~2022-03-28 | US_ITS ---
US thyroid INDICATION: Hypothyroidism TECHNIQUE: Real-time sonographic images of the thyroid gland were obtained. COMPARISON: No prior studies for comparison. FINDINGS: The right thyroid lobe measures 3.9 x 1 x 1.3 cm. The left thyroid lobe measures 3 x 0.9 x 1.3 cm. There is normal echotexture and echogenicity throughout the thyroid gland. No discrete nodul es identified. Normal vascular flow is present. IMPRESSION: 1. Normal thyroid without discrete nodule or abnormal vascularity. Reviewed, dictated and finalized at location B. N HELPER
== END 2022-03-28 12:58 | disposition home or self-care (01) ==
PROVIDERS: PCP Family Medicine; Visit Provider Physician Assistant Medical
DX: E03.9 Hypothyroidism, unspecified (principal)
CPT/HCPCS: 76536

== ENCOUNTER 2023-03-11 16:13 | Outpatient (CLI) | payer BC, SELFPAY ==
--- NOTE | ~2023-03-11 | XR_ITS ---
Left foot Technique: AP, oblique, and lateral views were obtained. Clinical History: Pain Findings: No acute fracture or dislocation is seen. Osseous alignment is anatomic. Joint spaces are p reserved without erosive or degenerative change. Soft tissues are unremarkable. Impression: Unremarkable left foot radiographs. Reviewed, dictated and finalized at location . [employer] INST[employer]ER Impression: Unremarkable left foot radiographs.
== END 2023-03-11 16:14 ==
LOC: MICIMG 16:15
PROVIDERS: PCP Family Medicine; Visit Provider Family Medicine
DX: M79.672 Pain in left foot (principal)
CPT/HCPCS: 73630

== ENCOUNTER 2023-05-21 21:30 | Emergency (ER) | payer SELFPAY ==
[2023-05-21 21:38] VITALS: BP 141/91; PULSE 111; RESP 20; TEMP 36.6; O2SAT 97
[2023-05-22 00:01] LABS: Hematocrit 43.1 % (42.0-52.0); Hemoglobin 14.5 g/dL (14.0-18.0); Mean Corpuscular HGB Conc 33.6 g/dl (32-36); Mean Corpuscular Volume 95.1 fl (80-100); Mean Platelet Volume 11.4 fl (7.4-10.4); Platelet Count Result 213 k/mm3 (150-375); Red Blood Count 4.53 M/mm3 (4.6-6.20); Red Cell Distribution Width 11.9 % (11.5-14.5); White Blood Count 10.8 K/mm3 (4.5-10.0)
[2023-05-22] MEDS: SODIUM CHLORIDE 0.9% IV 1,000 ML 999 ML IV CONT ×2 (00:08→00:35)
[2023-05-22 00:11] LABS: Alanine Aminotransferase 88 U/L (6-50); Albumin Level 5.1 g/dL (3.5-5.1); Alkaline Phosphatase 62 U/L (38-126); Anion Gap 15 mmol/L (8-16); Aspartate Amino Transferase 39 U/L (17-59); Bilirubin,Total 0.5 mg/dL (0.2-1.3); Blood Urea Nitrogen 23 mg/dL (9-20); Calcium 10.1 mg/dL (8.4-10.2); Carbon Dioxide 21 mmol/L (22-30); Chloride 110 mmol/L (98-107); Estimated CRCL calculation 123 ml/min; Estimated Glomerular Filt Rate > 60; Glucose 130 mg/dL (65-110); Lipase 23 U/L (23-300); Potassium 3.5 mmol/L (3.4-5.0); Sodium 146 mmol/L (137-145)
[2023-05-22 00:21] LABS: Neutrophils Percent Manual 88 % (46-73); Total Cells Counted 100
[2023-05-22 00:22] LABS: Band Neutrophils Percent 6 % (0-6); Lymphocytes Absolute Manual 0.32 K/mm3 (1.1-4.5); Lymphocytes Percent Manual 3 % (18-44); Monocytes Absolute Manual 0.32 K/mm3 (0.1-0.90); Monocytes Percent Manual 3 % (3-9); Neutrophils Absolute Manual 10.15 K/mm3 (1.3-6.7); Platelet Estimate Adequate (Adequate); Schistocytes None Seen (NORMAL)
[2023-05-22] MEDS: ONDANSETRON INJ 4 MG/2 ML VIAL IV PUSH (00:34)
[2023-05-22] MEDS: FAMOTIDINE 20 MG/2 ML VIAL IV PUSH (00:34)
[2023-05-22 00:36] LABS: Influenza A QL RT-PCR Negative (Negative); Influenza B QL RT-PCR Negative (Negative); RSV RNA, RT-PCR Negative (Negative); SARS-CoV-2 RNA PCR Negative (Negative)
--- NOTE | 2023-05-22 00:37 | ED.NAVMDI ---
HPI - Nausea/Vomiting/Diarrhea General Chief complaint: Nausea/Vomiting/Diarrhea Stated complaint: n/v Time Seen by Provider: 05/21/23 23:32 Source: patient Mode of arrival: ambulatory Limitations: no limitations History of Present Illness HPI Narrative: Patient is a 22-year-old male who presents to ED with report of nausea and vomiting. Patient reports having persistent nausea and vomiting all day today, starting around 8:00 a.m. States he has been unable to keep down any food or drink. Feels very weak and dehydrated. Reports 1 episode of diarrhea. Denies rectal bleeding or melena. Denies significant abdominal pain. Denies fevers. Denies urinary complaints. Patient's significant other bedside had similar symptoms last week. Their son has also had similar symptoms. Related Data Allergies Allergy/AdvReac Type Severity Reaction Status Date / Time amoxicillin Allergy Unknown Verified 08/22/22 11:03 Cephalosporins Allergy Unknown Verified 08/22/22 11:03 lisinopril Allergy Unknown Verified 08/22/22 11:03 Review of Systems Review of Systems: CONSTITUTIONAL: Denies fever, chills, or sweats. CARDIOVASCULAR: Denies chest pain. RESPIRATORY: Denies dyspnea. GASTROINTESTINAL: See HPI GENITOURINARY: Denies dysuria or hematuria. All systems reviewed & are unremarkable except as noted in HPI and below PMFSH Past Medical History Medical History Anxiety Coarctation of aorta, congenital Gastric intestinal metaplasia GERD (gastroesophageal reflux disease) Hypothyroid Low testosterone Seasonal allergic rhinitis Surgical History Surgical History H/O aortic coarctation repair History of repair of pyloric stenosis S/P orchiopexy Family History Family History Sibling Depression Anxiety Grandparent Diabetes mellitus Grandparent Lung cancer Alcoholism Sibling Hypothyroid Social History Social History Smoking status: Never smoker Smoking end date: 05/06/19 Additional smoking assessment comments: formerly smoked cigarettes, marijuana, and vaped occasionally Alcohol intake: current Drinks per week: 1 Alcohol use details: at most, 1 beer/week, and not every week Substance use: former Substance use type: marijuana Other substance usage details: Occasional usage Last use: 09/03/2021 Lack of Transportation: No Lack of Food: Never True Current Housing: I Have Housing Concerned About Future Housing: No Difficulty Paying Gas/Electric Bills: No Difficulty Paying for Meds: No Currently Unemployed: No Education: High School Diploma/GED Living arrangements: with friend(s) Occupation/Education: occupation 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 HEAD: Normocephalic, atraumatic. ENT: MMs slightly dry. RESPIRATORY: Airway patent, respirations nonlabored. CARDIOVASCULAR: Borderline tachycardic with regular rhythm without murmurs, rubs, or gallops. Radial pulses 2+ ABDOMINAL: Soft, no significant tenderness throughout abdomen, nondistended. Normoactive BS. MUSCULOSKELETAL: Moves all extremities. No gross deformities. SKIN: Warm, dry, normal color. NEURO: A&O X3. Speech clear. Cranial nerves II-XII grossly intact. No ataxic movements. PSYCHIATRIC: Appropriate mood and affect. Normal interaction. Course Vital Signs Vital signs: Vital Signs Temperature 97.8 F 05/21/23 21:38 Pulse Rate 111 H 05/21/23 21:38 Respiratory Rate 20 05/21/23 21:38 Blood Pressure 141/91 H 05/21/23 21:38 Pulse Oximetry 97 05/21/23 21:38 Oxygen
[2023-05-22 00:39] VITALS: BP 149/93; PULSE 85; RESP 16; O2SAT 97
[2023-05-22 01:02] LABS: Appearance Urine Turbid (Clear); Bacteria Urine None Seen /hpf; Bilirubin Urine 1+ (Negative); Blood Urine Negative (Negative); Color Urine Dark Yellow (Yellow); Glucose Urine UA Negative (Negative); Hyaline Casts Urine Present /lpf; Ketones Urine 2+ mg/dL (Negative); Leukocyte Esterase Ur Negative LEU/UL (Negative); Mucus Urine Present /lpf; Need Manual Microscopic Reviewed; Nitrate Urine Negative (Negative); Protein Urine 2+ mg/dL (Negative); Squamous Epithelial Cell Urine Few /hpf (Few); WBC Urine 0-5 /hpf; pH Urine 5.5 (5.0-9.0)
[2023-05-22 01:04] LABS: Add Urine Microscopic? YES; Specific Grav Ur 1.039 (1.001-1.035)
[2023-05-22 01:50] VITALS: BP 133/70; PULSE 87; RESP 15; O2SAT 98
[2023-05-22 02:59] VITALS: BP 136/56; PULSE 87; RESP 16; O2SAT 98
== END 2023-05-22 03:01 | disposition home or self-care (01) ==
PROVIDERS: Emergency Provider Physician Assistant; PCP Family Medicine
DX: K52.9 Noninfective gastroenteritis and colitis, unspecified (principal); Z20.822 Contact with and (suspected) exposure to COVID-19; E03.9 Hypothyroidism, unspecified; K21.9 Gastro-esophageal reflux disease without esophagitis; Z87.74 Personal history of (corrected) congenital malformations of heart and circulatory system; Z87.891 Personal history of nicotine dependence
CPT/HCPCS: 36415; 80053; 81001; 83690; 85025; 87637; 96361; 96374; 96375; 99284; J2405; J7030

== ENCOUNTER 2023-07-31 11:43 | Outpatient (CLI) | payer BC, SELFPAY ==
[2023-07-31 12:40] LABS: Basophils Percent Auto 0.5 % (0.2-1.2); Eosinophils Absolute Auto 0.2 K/mm3 (0-0.3); Hematocrit 42.1 % (42.0-52.0); Immature Granulocyte Absolute 0.03 K/mm3 (0.00-0.031); Immature Granulocyte Percent A 0.5 % (0-0.5); Lymphocytes Absolute Auto 2.09 K/mm3 (0.9-3.2); Lymphocytes Percent Auto 36.7 % (18.3-44.2); Mean Corpuscular HGB Conc 33.3 g/dl (32-36); Mean Corpuscular Hemoglobin 31.4 pg (26-34); Mean Corpuscular Volume 94.4 fl (80-100); Mean Platelet Volume 11.2 fl (7.4-10.4); Monocytes Absolute Auto 0.3 K/mm3 (0.1-0.6); Neutrophils Percent Auto 53.3 % (45.5-73.1); Platelet Count Result 261 k/mm3 (150-375); Red Blood Count 4.46 M/mm3 (4.6-6.20); Red Cell Distribution Width 11.5 % (11.5-14.5); White Blood Count 5.7 K/mm3 (4.5-10.0)
[2023-07-31 12:50] LABS: Alanine Aminotransferase 14 U/L (6-50); Albumin Level 4.6 g/dL (3.5-5.1); Alkaline Phosphatase 77 U/L (38-126); Anion Gap 6 mmol/L (4-12); Aspartate Amino Transferase 29 U/L (17-59); Bilirubin,Total 0.5 mg/dL (0.2-1.3); Blood Urea Nitrogen 18 mg/dL (9-20); Calcium 9.5 mg/dL (8.4-10.2); Carbon Dioxide 27 mmol/L (22-30); Chloride 105 mmol/L (98-107); Estimated Glomerular Filt Rate > 60; Glucose 96 mg/dL (65-110); Potassium 3.9 mmol/L (3.4-5.0); Sodium 138 mmol/L (137-145)
[2023-07-31 13:19] LABS: Thyroid Stimulating Hormone 0.106 uIU/mL (0.465-4.680)
[2023-07-31 13:47] LABS: Free T4 Free Thyroxine 1.25 ng/mL (0.78-2.19); Vitamin D 25 Hydroxy 41.9 ng/mL
[2023-07-31 21:47] LABS: Iron 102 ug/dL (49-181)
[2023-07-31 21:51] LABS: Percent Iron Saturation 29 % (20-50)
[2023-08-03 07:50] LABS: EBV Nuclear Ab Interpretation Past; EBV Virus Capsid Ag IgM Ab <36.00 U/mL (<36.00)
== END 2023-07-31 11:44 | disposition home or self-care (01) ==
LOC: ANHLAB 11:44
PROVIDERS: PCP Family Medicine; Visit Provider Physician Assistant Medical
DX: E55.9 Vitamin D deficiency, unspecified (principal); R53.83 Other fatigue; E03.9 Hypothyroidism, unspecified; E53.8 Deficiency of other specified B group vitamins; E78.2 Mixed hyperlipidemia; R59.1 Generalized enlarged lymph nodes
CPT/HCPCS: 36415; 80053; 82306; 82607; 82728; 83540; 83550; 84439; 84443; 85025; 86664; 86665

== ENCOUNTER 2023-09-25 14:45 | Outpatient (CLI) | payer BC, SELFPAY ==
--- NOTE | ~2023-09-25 | US_ITS ---
EXAMINATION: US soft tissue head and neck DATE: 09/25/2023 15:31 INDICATION: Lymphadenopathy, not elsewhere classified. TECHNIQUE: Multiple grayscale and Doppler ultrasound images of the head and neck were obtained. COMPARISON: CT cervical spine 09/17/2021 FINDINGS: There is no abnormal mass or lymphadenopathy in the patient's area of concern in right subm andibular region. IMPRESSION: 1. No abnormal mass or lymphadenopathy in the patient's area of concern in right submandibular region . Reviewed, dictated and finalized at location A. IMPRESSION: 1. No abnormal mass or lymphadenopathy in the patient's area of concern in righ t submandibular region.
== END 2023-09-25 14:46 | disposition home or self-care (01) ==
PROVIDERS: PCP Physician Assistant Medical; Visit Provider Physician Assistant Medical
DX: I89.0 Lymphedema, not elsewhere classified (principal)
CPT/HCPCS: 76536

== ENCOUNTER 2023-10-21 07:37 | Outpatient (CLI) | payer BC, SELFPAY ==
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
[2023-10-21 08:01] LABS: Estimated Glomerular Filt Rate > 60
== END 2023-10-21 07:38 | disposition home or self-care (01) ==
PROVIDERS: Visit Provider Otolaryngology
DX: R22.1 Localized swelling, mass and lump, neck (principal); H92.02 Otalgia, left ear; K11.23 Chronic sialoadenitis
CPT/HCPCS: 70491; Q9967

== ENCOUNTER 2024-04-04 11:14 | Emergency (ER) | payer BC, SELFPAY ==
[2024-04-04 11:46] VITALS: BP 130/88; PULSE 58; RESP 20; TEMP 36.3; O2SAT 100
[2024-04-04 12:13] LABS: Basophils Percent Auto 0.3 % (0.2-1.2); Hematocrit 41.8 % (42.0-52.0); Hemoglobin 14.7 g/dL (14.0-18.0); Immature Granulocyte Absolute 0.03 K/mm3 (0.00-0.031); Immature Granulocyte Percent A 0.3 % (0-0.5); Lymphocytes Absolute Auto 0.73 K/mm3 (0.9-3.2); Lymphocytes Percent Auto 7.1 % (18.3-44.2); Mean Corpuscular HGB Conc 35.2 g/dl (32-36); Mean Corpuscular Hemoglobin 31.9 pg (26-34); Mean Corpuscular Volume 90.7 fl (80-100); Mean Platelet Volume 11.1 fl (7.4-10.4); Monocytes Absolute Auto 0.2 K/mm3 (0.1-0.6); Monocytes Percent Auto 1.9 % (2.6-8.5); Neutrophils Absolute Auto 9.3 K/mm3 (1.3-6.7); Neutrophils Percent Auto 90.4 % (45.5-73.1); Platelet Count Result 230 k/mm3 (150-375); Red Blood Count 4.61 M/mm3 (4.6-6.20); Red Cell Distribution Width 11.6 % (11.5-14.5); White Blood Count 10.3 K/mm3 (4.5-10.0)
--- NOTE | 2024-04-04 12:18 | PC.NURSE ---
Pt attempted to give urine sample but was unsuccessful
[2024-04-04 12:33] LABS: Alanine Aminotransferase 16 U/L (6-50); Albumin Level 5.1 g/dL (3.5-5.1); Alkaline Phosphatase 77 U/L (38-126); Anion Gap 11 mmol/L (4-12); Aspartate Amino Transferase 39 U/L (17-59); Bilirubin,Total 0.8 mg/dL (0.2-1.3); Blood Urea Nitrogen 16 mg/dL (9-20); Calcium 10.1 mg/dL (8.4-10.2); Carbon Dioxide 25 mmol/L (22-30); Chloride 110 mmol/L (98-107); Estimated CRCL calculation 105 ml/min; Estimated Glomerular Filt Rate > 60; Glucose 130 mg/dL (65-110); Lipase 48 U/L (23-300); Sodium 146 mmol/L (137-145)
[2024-04-04 13:37] LABS: Influenza A QL RT-PCR Negative (Negative); Influenza B QL RT-PCR Negative (Negative); RSV RNA, RT-PCR Negative (Negative); SARS-CoV-2 RNA PCR Negative (Negative)
[2024-04-04] MEDS: ONDANSETRON INJ 4 MG/2 ML VIAL IV PUSH (13:54)
[2024-04-04] MEDS: FAMOTIDINE 20 MG/2 ML VIAL IV PUSH (13:54)
[2024-04-04] MEDS: SODIUM CHLORIDE 0.9% IV 2,000 ML 999 ML IV CONT (13:57)
[2024-04-04] MEDS: HALOPERIDOL LACTATE 5 MG/ML VIAL IM (13:58)
[2024-04-04] MEDS: PROCHLORPERAZINE EDISYLATE 10 MG/2 ML VIAL IM (14:11)
[2024-04-04] MEDS: diphenhydrAMINE HCl INJ 50 MG/ML VIAL 25 MG IV PUSH (14:12)
[2024-04-04 14:16] VITALS: BP 149/75; PULSE 70; RESP 20; O2SAT 100
[2024-04-04 14:18] VITALS: PULSE 68; RESP 19; O2SAT 100
[2024-04-04 15:00] VITALS: BP 137/86; PULSE 78; RESP 28; O2SAT 100
--- NOTE | 2024-04-04 15:04 | ED.GENADULT ---
HPI - General Adult General Chief complaint: Nausea/Vomiting/Diarrhea Stated complaint: n/v Time Seen by Provider: 04/04/24 12:38 History of Present Illness HPI narrative: This is a 23-year-old male with history of cyclic vomiting presenting ED with nausea and vomiting. Patient says that he had some alcohol and smoked some weed from modug[place]. And starting last night he developed recurrent nausea and vomiting. He says that this feels similar to previous episodes of cyclic vomiting. He denies fevers chills chest pain difficulty breathing or diarrhea. Related Data Home Medications Medication Instructions Recorded Confirmed amlodipine 10 mg tablet 7.5 mg PO DAILY 10/07/23 omeprazole 40 mg capsule,delayed 40 mg PO DAILY 10/07/23 release Allergies Allergy/AdvReac Type Severity Reaction Status Date / Time amoxicillin Allergy Unknown Verified 10/07/23 14:29 Cephalosporins Allergy Unknown Verified 10/07/23 14:29 lisinopril Allergy Unknown Verified 10/07/23 14:29 [facility] Past Medical History Medical History Anxiety Coarctation of aorta, congenital Gastric intestinal metaplasia GERD (gastroesophageal reflux disease) Hypothyroid Low testosterone Seasonal allergic rhinitis Surgical History Surgical History H/O aortic coarctation repair History of repair of pyloric stenosis S/P orchiopexy Family History Family History Sibling Depression Anxiety Grandparent Diabetes mellitus Grandparent Lung cancer Alcoholism Sibling Hypothyroid Alcoholism Father Cancer Mother Hypertension Social History Social History Smoking status: Never smoker Smoking end date: 05/06/19 Additional smoking assessment comments: formerly smoked cigarettes, marijuana, and vaped occasionally Alcohol intake: current Drinks per week: 1 Alcohol use details: at most, 1 beer/week, and not every week Substance use: former Substance use type: marijuana Other substance usage details: Occasional usage Last use: 09/03/2021 Lack of Transportation: No Lack of Food: Never True Current Housing: I Have Housing Concerned About Future Housing: No Difficulty Paying Gas/Electric Bills: No Difficulty Paying for Meds: No Currently Unemployed: No Education: Associate Degree Difficulty w/ Childcare or Family Care: No Living arrangements: with friend(s) Occupation/Education: occupation 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 EYES: EOMI, NOSE: Atraumatic NECK: Trachea midline RESPIRATORY: No increased rate of breathing, CTAB CARDIOVASCULAR: RRR, ABDOMINAL: Non-distended soft nontender MUSCULOSKELETAl: No obvious deformities NEURO: Alert. Moving 4/4 extremities SKIN:: Warm, dry. Normal color PSYCHIATRIC: Normal affect Course Vital Signs Vital signs: Vital Signs Temperature 97.4 F L 04/04/24 11:46 Pulse Rate 58 L 04/04/24 11:46 Respiratory Rate 20 04/04/24 11:46 Blood Pressure 130/88 04/04/24 11:46 Pulse Oximetry 100 04/04/24 11:46 Temperature 97.4 F L 04/04/24 11:46 Pulse Rate 70 04/04/24 14:16 Respiratory Rate 20 04/04/24 14:16 Blood Pressure 149/75 H 04/04/24 14:16 Pulse Oximetry 100 04/04/24 14:16 Medical Decision Making MDM Narrative Medical decision making narrative: -Course: 23-year-old male presenting with nausea and vomiting. Presentation consistent with cannabinoid hyperemesis. Patient was given antiemetics with improvement. He is now tolerating p.o.. Laboratory studies within normal limits, vital signs are stable and he has a benign abdominal exam. Patient be discharged. -DDX includes but is not limited to: Gastroenteritis, food poisoning, cyclic vomiting -Co-morbidities complicating care: history of cyclic vomiting, coarctation of the aorta -Independent interpretation of studies: labs reviewed -Dx tests considered but not ordered: CT abdomen pelvis- stable vital signs benign abdominal exam -Interventions: to L normal saline, 5 mg Haldol, 20 mg Pepcid -> Compazine 10mg, Benadryl 25mg -Shared decision making / Disposition:discharged. Vital Signs Vital Signs: Vital Signs Temperature 97.4 F L 04/04/24 11:46 Pulse Rate 58 L 04/04/24 11:46 Respiratory Rate 20 11/30/24 11:46 Blood Pressure 130/88 11/30/24 11:46 Pulse Oximetry 100 04/04/24 11:46 Temperature 97.4 F L 04/04/24 11:46 Pulse Rate 70 04/04/24 14:16 Respiratory Rate 20 04/04/24 14:16 Blood Pressure 149/75 H 04/04/24 14:16 Pulse Oximetry 100 04/04/24 14:16 Lab Data 04/04/24 12:06 04/04/24 12:06 Labs: Lab Results 04/04/24 Range/Units 12:06 WBC 10.3 H (4.5-10.0) K/mm3 RBC 4.61 (4.6-6.20) M/mm3 Hgb 14.7 (14.0-18.0) g/dL Hct 41.8 L (42.0-52.0) % MCV 90.7 (80-100) fl MCH 31.9 (26-34) pg MCHC 35.2 (32-36) g/dl RDW 11.6 (11.5-14.5) % Plt Count 230 (150-375) k/mm3 MPV 11.1 H (7.4-10.4) fl Immature Gran % (Auto) 0.3 (0-0.5) % Neut % (Auto) 90.4 H (45.5-73.1) % Lymph % (Auto) 7.1 L (18.3-44.2) % [place] % (Auto) 1.9 L (2.6-8.5) % Eos % (Auto) 0.0 (0-4.4) % Baso % (Auto) 0.3 (0.2-1.2) % Lymph # (Auto) 0.73 L (0.9-3.2) K/mm3 [place] # (Auto) 0.2 (0.1-0.6) K/mm3 Eos # (Auto) 0.0 (0-0.3) K/mm3 Baso # (Auto) 0.0 (0.0-0.1) K/mm3 Abs Immat Gran (auto) 0.03 (0.00-0.031) K/mm3 Absolute Neuts (auto) 9.3 H (1.3-6.7) K/mm3 Absolute Nucleated RBC 0.000 (0.0-0.012) K/mm3 Nucleated RBC % 0.0 (0.0-0.2) % Sodium 146 H (137-145) mmol/L Potassium 4.0 (3.4-5.0) mmol/L Chloride 110 H (98-107) mmol/L Carbon Dioxide 25 (22-30) mmol/L Anion Gap 11 (4-12) mmol/L BUN 16 (9-20) mg/dL Creatinine 1.00 (0.7-1.3) mg/dL Estim Creat Clear Calc 105 ml/min Estimated GFR > 60 (59 - ) Glucose 130 H (65-110) mg/dL Calcium 10.1 (8.4-10.2) mg/dL Total Bilirubin 0.8 (0.2-1.3) mg/dL AST 39 (17-59) U/L ALT 16 (6-50) U/L Alkaline Phosphatase 77 (38-126) U/L Total Protein 8.0 (6.3-8.2) g/dL Albumin 5.1 (3.5-5.1) g/dL Lipase 48 (23-300) U/L Influenza A (RT-PCR) Negative (Negative) Influenza B (RT-PCR) Negative (Negative) RSV (RT-PCR) Negative (Negative) SARS-CoV-2 RNA (RT-PCR) Negative (Negative) Discharge Plan Discharge Clinical Impression: Cannabinoid hyperemesis syndrome Patient Disposition: Home, Self-Care Condition: Stable Instructions: Antibiotic Form, Cyclic Vomiting Syndrome (ED) Additional Instructions: You were seen in the emergency depart for nausea vomiting please use Zofran as needed. Please drink plenty of fluids. Please refrain from marijuana use. If you develop intractable nausea vomiting, abdominal pain or fevers please return ED for re-evaluation. Prescriptions: New ondansetron 4 mg tablet,disintegrating 4 mg PO Q8H PRN (Reason: nausea and vomiting) Qty: 30 0RF No Action hydrochlorothiazide 12.5 mg capsule 12.5 mg PO DAILY Qty: 90 2RF amlodipine 10 mg tablet 7.5 mg PO DAILY omeprazole 40 mg capsule,delayed release(DR/EC) 40 mg PO DAILY levothyroxine [Synthroid] 75 mcg tablet 75 mcg PO DAILY Qty: 30 6RF levothyroxine 50 mcg tablet 50 mcg PO DAILY Qty: 30 3RF Follow-up/Referrals: Vanesa Bello MD [Primary Care Provider] -
[2024-04-04 15:43] LABS: Amphetamine Screen Urine Negative (Negative); Barbiturate Screen Urine Negative (Negative); Benzodiazepines Screen Urine Negative (Negative); Cannabinoid Screen Urine Positive (Negative); Cocaine Screen Urine Negative (Negative); Methadone Screen Urine Negative (Negative); Opiate Screen Urine Negative (Negative); Phencyclidine Screen Urine Negative (Negative)
[2024-04-04 15:50] LABS: Add Urine Microscopic? YES; Appearance Urine Clear (Clear); Bacteria Urine None Seen /hpf; Bilirubin Urine Negative (Negative); Blood Urine Negative (Negative); Color Urine Yellow (Yellow); Glucose Urine UA Negative (Negative); Ketones Urine 3+ mg/dL (Negative); Leukocyte Esterase Ur Negative LEU/UL (Negative); Need Manual Microscopic Reviewed; Nitrate Urine Negative (Negative); Protein Urine Trace mg/dL (Negative); Specific Grav Ur 1.024 (1.001-1.035); Squamous Epithelial Cell Urine None Seen /hpf (Few); Urobilinogen Urine 0.2 mg/dL (<2.0); WBC Urine 0-5 /hpf (0-3)
== END 2024-04-04 15:23 | disposition home or self-care (01) ==
PROVIDERS: Emergency Provider Emergency Medicine; PCP Family Medicine
DX: R11.2 Nausea with vomiting, unspecified (principal); F12.90 Cannabis use, unspecified, uncomplicated; Z20.822 Contact with and (suspected) exposure to COVID-19; E03.9 Hypothyroidism, unspecified; K21.9 Gastro-esophageal reflux disease without esophagitis; Z87.74 Personal history of (corrected) congenital malformations of heart and circulatory system; Z87.891 Personal history of nicotine dependence
CPT/HCPCS: 36415; 80053; 80307; 81001; 83690; 85025; 87637; 96372; 96374; 96375; 99284; J0780; J1200; J1630; J2405; J7030

== ENCOUNTER 2024-04-06 07:50 | Emergency (ER) | payer BC, SELFPAY ==
[2024-04-06 07:57] VITALS: BP 151/91; PULSE 57; RESP 18; TEMP 36.8; O2SAT 99
--- NOTE | 2024-04-06 08:11 | PC.NURSE ---
Pt reports was seen and treated in this ER on 04/03/24 for same symptoms. Pt states he thinks his marijuana use is causing the n/v, reports smoke marijuana last night.
--- NOTE | 2024-04-06 08:18 | ED.NAVMDI ---
HPI - Nausea/Vomiting/Diarrhea General Chief complaint: Nausea/Vomiting/Diarrhea Stated complaint: nausea, vomiting Time Seen by Provider: 04/06/24 08:04 Source: patient Mode of arrival: ambulatory Limitations: no limitations History of Present Illness HPI Narrative: Patient presents with nausea and nonbloody nonbilious vomiting of 3 days duration. He also states that he has been having diarrhea although when initially asked he states that he cannot quantify how many times this has been occurring and that it was improved but then later states that his last bowel movement was a few hours ago was very watery/runny. He denies any fever but he has been having chills. He states he has been told he has cyclic vomiting previously but has also undergone endoscopy and was noted to have metaplasia. No prior colonoscopy. His pathology laboratory aide was Dr Gallegos (?). He denies any blood in his stool. He denies any penile discharge. No sick contacts. He does use marijuana regularly. Related Data Home Medications Medication Instructions Recorded Confirmed amlodipine 10 mg tablet 7.5 mg PO DAILY 10/07/23 omeprazole 40 mg capsule,delayed 40 mg PO DAILY 10/07/23 release Allergies Allergy/AdvReac Type Severity Reaction Status Date / Time amoxicillin Allergy Unknown Verified 04/06/24 08:02 Cephalosporins Allergy Unknown Verified 04/06/24 08:02 lisinopril Allergy Unknown Verified 04/06/24 08:02 ON LICENSE OF [facility] Past Medical History Medical History Anxiety Coarctation of aorta, congenital Gastric intestinal metaplasia GERD (gastroesophageal reflux disease) Hypothyroid Low testosterone Seasonal allergic rhinitis Surgical History Surgical History H/O aortic coarctation repair History of repair of pyloric stenosis S/P orchiopexy Family History Family History Sibling Depression Anxiety Grandparent Diabetes mellitus Grandparent Lung cancer Alcoholism Sibling Hypothyroid Alcoholism Father Cancer Mother Hypertension Social History Social History Smoking status: Former smoker Tobacco type: e-cigarettes/vaping Smoking end date: 05/06/19 Alcohol intake: current Drinks per week: 1 Alcohol use details: at most, 1 beer/week, and not every week Substance use: current Substance use type: marijuana Other substance usage details: Occasional usage Last use: 09/03/2021 Lack of Transportation: No Lack of Food: Never True Current Housing: I Have Housing Concerned About Future Housing: No Difficulty Paying Gas/Electric Bills: No Difficulty Paying for Meds: No Currently Unemployed: No Education: Associate Degree Difficulty w/ Childcare or Family Care: No Living arrangements: with friend(s) Occupation/Education: occupation 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 EYES: Non injected, non icteric ENT: Nares clear, no rhinorrhea or epistaxis. Mildly tacky mucous membranes. NECK: Supple. CHEST: Speaking in full sentences. No respiratory distress. HEART: Bradycardic rate and rhythm. . ABDOMEN: Soft, nondistended. No tenderness to palpation throughout. No rigidity or guarding. Not peritoneal. Occasionally dry heaving. EXTREMITIES: Normal range of motion. No lower extremity edema. SKIN: Warm, dry, no rash. NEURO: No focal deficits. Alert and oriented x3. PSYCH: Normal mood and affect. Course Vital Signs Vital signs: Vital Signs Temperature 98.2 F 04/06/24 07:57 Pulse Rate 57 L 04/06/24 07:57 Respiratory Rate 18 04/06/24 07:57 Blood Pressure 151/91 H 04/06/24 07:57 Pulse Oximetry 99 04/06/24 07:57 Oxygen Delivery Room Air 04/06/24 07:57 Temperature 97.9 F 04/06/24 12:15 Pulse Rate 73 04/06/24 13:17 Respiratory Rate 18 04/06/24 13:17 Blood Pressure 141/84 H 04/06/24 13:17 Pulse Oximetry 99 04/06/24 13:17 Oxygen Delivery Room Air 04/06/24 07:57 MDM - Nausea/Vomiting/Diarrhea MDM Narrative Medical decision making narrative: Patient presents with complaint of nausea and vomiting as well as possibly diarrhea. His symptoms have been going on for 3 days associated with chills. He has a history of cyclic vomiting that previously been described as possibly related to marijuana use although he also has various other underlying gastrointestinal issues including metaplasia seen on endoscopy per patient and history of pyloric stenosis surgery per review of the EMR. In the emergency department he is afebrile with vital signs notable for mild bradycardia and slight hypertension. Patient does use marijuana on a daily/nearly daily basis. We did discuss cannabinoid hyperemesis syndrome as a diagnosis, although he has other possible etiologies. Patient is symptomatically treated with IV fluids, haloperidol 2.5 mg IV and diphenhydramine 25 mg IV. Patient had inquired about possibly being discharged with prescription for phernergan but he is advised and encouraged to attempt cannabis cessation to trial and see if there is resolution of symptoms. Patient is reassessed at approximately noon. He is sleepy and resting comfortably although when woken he does state that he continues to feel slightly nauseated. Will give ondansetron as well as another small dose of haloperidol. I did confirm the patient has available transportation/ someone to pick him up. Notably, QT/QTC 429/414, appropriate. Patient reassessed at 1:00 p.m.. He is somnolent but protecting his airway resting comfortably. Upon awakening him he does state that his nausea is greatly improved. Stable for discharge. Differential Diagnosis Differential diagnosis: Likely food poisoning, gastroenteritis, drug-induced nausea and vomiting, dehydration and other (Gastritis/GERD; cannabinoid hyperemesis syndrome; acute viral syndrome) Lab Data Attestation: I reviewed the patient's lab results. Lab results narrative: Mild leukocytosis 04/06/24 08:13 04/06/24 08:13 Labs: Lab Results 04/06/24 04/06/24 04/06/24 Range/Units 08:13 08:24 10:24 WBC 11.0 H (4.5-10.0) K/mm3 RBC 4.44 L (4.6-6.20) M/mm3 Hgb 14.1 (14.0-18.0) g/dL Hct 40.9 L (42.0-52.0) % MCV 92.1 (80-100) fl MCH 31.8 (26-34) pg MCHC 34.5 (32-36) g/dl RDW 11.5 (11.5-14.5) % Plt Count 247 (150-375) k/mm3 MPV 11.7 H (7.4-10.4) fl Immature Gran % (Auto) 0.3 (0-0.5) % Neut % (Auto) 83.1 H (45.5-73.1) % Lymph % (Auto) 12.0 L (18.3-44.2) % [place] % (Auto) 3.8 (2.6-8.5) % Eos % (Auto) 0.3 (0-4.4) % Baso % (Auto) 0.5 (0.2-1.2) % Lymph # (Auto) 1.32 (0.9-3.2) K/mm3 [place] # (Auto) 0.4 (0.1-0.6) K/mm3 Eos # (Auto) 0.0 (0-0.3) K/mm3 Baso # (Auto) 0.1 (0.0-0.1) K/mm3 Abs Immat Gran (auto) 0.03 (0.00-0.031) K/mm3 Absolute Neuts (auto) 9.2 H (1.3-6.7) K/mm3 Absolute Nucleated RBC 0.000 (0.0-0.012) K/mm3 Nucleated RBC % 0.0 (0.0-0.2) % Sodium 142 (137-145) mmol/L Potassium 3.6 (3.4-5.0) mmol/L Chloride 108 H (98-107) mmol/L Carbon Dioxide 24 (22-30) mmol/L Anion Gap 10 (4-12) mmol/L BUN 14 (9-20) mg/dL Creatinine 1.10 (0.7-1.3) mg/dL Estim Creat Clear Calc 81 ml/min Estimated GFR > 60 (59 - ) Glucose 127 H (65-110) mg/dL Calcium 9.8 (8.4-10.2) mg/dL Magnesium 1.9 (1.6-2.3) mg/dL Total Bilirubin 1.0 (0.2-1.3) mg/dL AST 47 (17-59) U/L ALT 17 (6-50) U/L Alkaline Phosphatase 68 (38-126) U/L Total Protein 8.0 (6.3-8.2) g/dL Albumin 4.9 (3.5-5.1) g/dL Lipase 88 (23-300) U/L Urine Color Yellow (Yellow) Urine Appearance Clear (Clear) Urine pH 7.5 (5.0-9.0) Ur Specific [place] 1.020 (1.001-1.035) Urine Protein Negative (Negative) mg/dL Urine Glucose (UA) Negative (Negative) mg/dL Urine Ketones Negative (Negative) mg/dL Ur Blood (Man) Negative (Negative) Urine Nitrate Negative (Negative) Urine Bilirubin Negative (Negative) Urine Urobilinogen 0.2 (<2.0) mg/dL Leukocyte Esterase Rfl Negative (Negative) DEANDRE/UL Urine Opiates Screen Negative (Negative) Urine Methadone Screen Negative (Negative) Ur Barbiturates Screen Negative (Negative) Ur Phencyclidine Scrn Negative (Negative) Ur Amphetamine Screen Negative (Negative) U Benzodiazepines Scrn Negative (Negative) Urine Cocaine Screen Negative (Negative) U Cannabinoids Screen Positive A (Negative) Influenza A (RT-PCR) Negative (Negative) Influenza B (RT-PCR) Negative (Negative) SARS-CoV-2 RNA (RT-PCR) Negative (Negative) ECG Data EKG #1: Attestation: I personally reviewed and interpreted this ECG as follows: ECG completion date: 04/06/24 ECG completion time: 12:22 Interpretation: Sinus bradycardia at a rate of 54 beats per minute. MT interval 120. QRS 122. QT/ QTC 429/414. Discharge Plan Discharge Clinical Impression: Nausea & vomiting, Loose stools, Leukocytosis, Cannabis abuse Patient Disposition: Home, Self-Care Condition: Stable Instructions: Antibiotic Form, Acute Nausea and Vomiting (DC), Leukocytosis (ED), Cannabis Use Disorder (ED) Additional Instructions: As we discussed, given your have presented to the emergency department several times for vomiting and there is consideration that this might be related to or the very least exacerbated by your marijuana use, recommend trialing a period where you stop to see if this improves your symptoms. I recommend that you read about the diagnosis of cannabinoid hyperemesis syndrome. follow-up with primary care physician. Return to the emergency department with any new or worsening symptoms. Rest and maintain your hydration today. Prescriptions: No Action hydrochlorothiazide 12.5 mg capsule 12.5 mg PO DAILY Qty: 90 2RF amlodipine 10 mg tablet 7.5 mg PO DAILY omeprazole 40 mg capsule,delayed release(DR/EC) 40 mg PO DAILY ondansetron 4 mg tablet,disintegrating 4 mg PO Q8H PRN (Reason: nausea and vomiting) Qty: 30 0RF levothyroxine [Synthroid] 75 mcg tablet 75 mcg PO DAILY Qty: 30 6RF levothyroxine 50 mcg tablet 50 mcg PO DAILY Qty: 30 3RF Follow-up/Referrals: Vanesa Bello MD [Primary Care Provider] - Stand Alone Forms: Work/School Release IP Time of Disposition: 13:01
[2024-04-06 08:34] LABS: Basophils Absolute Auto 0.1 K/mm3 (0.0-0.1); Basophils Percent Auto 0.5 % (0.2-1.2); Eosinophils Percent Auto 0.3 % (0-4.4); Hematocrit 40.9 % (42.0-52.0); Hemoglobin 14.1 g/dL (14.0-18.0); Immature Granulocyte Absolute 0.03 K/mm3 (0.00-0.031); Immature Granulocyte Percent A 0.3 % (0-0.5); Lymphocytes Absolute Auto 1.32 K/mm3 (0.9-3.2); Mean Corpuscular HGB Conc 34.5 g/dl (32-36); Mean Corpuscular Hemoglobin 31.8 pg (26-34); Mean Corpuscular Volume 92.1 fl (80-100); Mean Platelet Volume 11.7 fl (7.4-10.4); Monocytes Absolute Auto 0.4 K/mm3 (0.1-0.6); Monocytes Percent Auto 3.8 % (2.6-8.5); Neutrophils Absolute Auto 9.2 K/mm3 (1.3-6.7); Neutrophils Percent Auto 83.1 % (45.5-73.1); Platelet Count Result 247 k/mm3 (150-375); Red Blood Count 4.44 M/mm3 (4.6-6.20); Red Cell Distribution Width 11.5 % (11.5-14.5)
[2024-04-06] MEDS: SODIUM CHLORIDE 0.9% IV 1,000 ML 999 ML IV CONT (08:39)
[2024-04-06] MEDS: HALOPERIDOL LACTATE 5 MG/ML VIAL 2.5 MG IV PUSH ×2 (08:39→12:12)
[2024-04-06] MEDS: diphenhydrAMINE HCl INJ 50 MG/ML VIAL 25 MG IV PUSH (08:39)
[2024-04-06 08:46] LABS: Alanine Aminotransferase 17 U/L (6-50); Albumin Level 4.9 g/dL (3.5-5.1); Alkaline Phosphatase 68 U/L (38-126); Anion Gap 10 mmol/L (4-12); Aspartate Amino Transferase 47 U/L (17-59); Blood Urea Nitrogen 14 mg/dL (9-20); Calcium 9.8 mg/dL (8.4-10.2); Carbon Dioxide 24 mmol/L (22-30); Chloride 108 mmol/L (98-107); Estimated CRCL calculation 81 ml/min; Estimated Glomerular Filt Rate > 60; Glucose 127 mg/dL (65-110); Potassium 3.6 mmol/L (3.4-5.0); Sodium 142 mmol/L (137-145)
[2024-04-06 08:51] LABS: Lipase 88 U/L (23-300); Magnesium 1.9 mg/dL (1.6-2.3)
[2024-04-06 09:00] VITALS: BP 141/90; PULSE 55; RESP 16; TEMP 36.6; O2SAT 99
[2024-04-06 09:34] LABS: Influenza A QL RT-PCR Negative (Negative); Influenza B QL RT-PCR Negative (Negative); SARS-CoV-2 RNA PCR Negative (Negative)
[2024-04-06 10:00] VITALS: BP 139/78; PULSE 61; RESP 16; TEMP 36.8; O2SAT 100
[2024-04-06 10:31] LABS: Add Urine Microscopic? NO; Appearance Urine Clear (Clear); Bilirubin Urine Negative (Negative); Blood Urine Negative (Negative); Color Urine Yellow (Yellow); Glucose Urine UA Negative (Negative); Ketones Urine Negative (Negative); Leukocyte Esterase Ur Negative LEU/UL (Negative); Nitrate Urine Negative (Negative); Protein Urine Negative (Negative); Urobilinogen Urine 0.2 mg/dL (<2.0); pH Urine 7.5 (5.0-9.0)
[2024-04-06 10:47] LABS: Amphetamine Screen Urine Negative (Negative); Barbiturate Screen Urine Negative (Negative); Benzodiazepines Screen Urine Negative (Negative); Cannabinoid Screen Urine Positive (Negative); Cocaine Screen Urine Negative (Negative); Methadone Screen Urine Negative (Negative); Opiate Screen Urine Negative (Negative); Phencyclidine Screen Urine Negative (Negative)
--- NOTE | 2024-04-06 12:01 | ECG_ITS ---
Test Date: 2024-04-06 12:22:18 Measurements Intervals [place] Rate: 54 P: 35 NC: 120 QRS: 61 QRSD: 122 T: -11 QT: 429 QTc: 407 Interpretive Statements SINUS BRADYCARDIA MODERATE T-WAVE ABNORMALITY, CONSIDER ANTERIOR ISCHEMIA [-0.1+ mV T WAVE IN V3/V4] No previous ECG available for comparison Electronically Signed On 04-06-2024 14:29:17 RAIL CAR DRIVER by Spencer Osborne M.D.
[2024-04-06] MEDS: ONDANSETRON INJ 4 MG/2 ML VIAL IV PUSH (12:12)
[2024-04-06 12:15] VITALS: BP 139/92; PULSE 99; RESP 16; TEMP 36.6; O2SAT 99
--- NOTE | 2024-04-06 12:16 | PC.NURSE ---
Pt drowsy awakens to name. Denies c/o abd or chest pain. Nausea slightly improved per pt.
[2024-04-06 13:17] VITALS: BP 141/84; PULSE 73; RESP 18; O2SAT 99
== END 2024-04-06 13:18 | disposition home or self-care (01) ==
PROVIDERS: Emergency Provider Student in an Organized Health Care Education/Training Program; PCP Family Medicine
DX: R11.2 Nausea with vomiting, unspecified (principal); R19.7 Diarrhea, unspecified; D72.829 Elevated white blood cell count, unspecified; E03.9 Hypothyroidism, unspecified; F12.10 Cannabis abuse, uncomplicated; K21.9 Gastro-esophageal reflux disease without esophagitis; F41.9 Anxiety disorder, unspecified; Z87.891 Personal history of nicotine dependence; Z20.822 Contact with and (suspected) exposure to COVID-19
CPT/HCPCS: 36415; 80053; 80307; 81003; 83690; 83735; 85025; 87636; 93005; 96361; 96374; 96375; 96376; 99284; J1200; J1630; J2405; J7030

== ENCOUNTER 2024-07-15 11:21 | Outpatient (CLI) | payer BC, SELFPAY ==
[2024-07-15 11:58] LABS: Basophils Percent Auto 0.8 % (0.2-1.2); Eosinophils Absolute Auto 0.2 K/mm3 (0-0.3); Eosinophils Percent Auto 3.6 % (0-4.4); Hematocrit 39.5 % (42.0-52.0); Hemoglobin 13.3 g/dL (14.0-18.0); Lymphocytes Absolute Auto 1.65 K/mm3 (0.9-3.2); Lymphocytes Percent Auto 31.7 % (18.3-44.2); Mean Corpuscular HGB Conc 33.7 g/dl (32-36); Mean Corpuscular Hemoglobin 31.9 pg (26-34); Mean Corpuscular Volume 94.7 fl (80-100); Mean Platelet Volume 11.3 fl (7.4-10.4); Monocytes Absolute Auto 0.4 K/mm3 (0.1-0.6); Monocytes Percent Auto 7.1 % (2.6-8.5); Neutrophils Percent Auto 56.8 % (45.5-73.1); Platelet Count Result 182 k/mm3 (150-375); Red Blood Count 4.17 M/mm3 (4.6-6.20); White Blood Count 5.2 K/mm3 (4.5-10.0)
[2024-07-15 12:21] LABS: Alanine Aminotransferase 14 U/L (6-50); Albumin Level 4.8 g/dL (3.5-5.1); Alkaline Phosphatase 86 U/L (38-126); Anion Gap 9 mmol/L (4-12); Aspartate Amino Transferase 34 U/L (17-59); Bilirubin,Total 0.4 mg/dL (0.2-1.3); Blood Urea Nitrogen 21 mg/dL (9-20); Calcium 9.5 mg/dL (8.4-10.2); Carbon Dioxide 27 mmol/L (22-30); Chloride 104 mmol/L (98-107); Estimated Glomerular Filt Rate > 60; Glucose 95 mg/dL (65-110); Potassium 4.3 mmol/L (3.4-5.0); Sodium 140 mmol/L (137-145)
[2024-07-15 12:48] LABS: Thyroid Stimulating Hormone 0.729 uIU/mL (0.465-4.680)
[2024-07-15 12:54] LABS: Free T4 Free Thyroxine 1.17 ng/dL (0.78-2.19)
--- OUTSIDE RECORDS SUMMARY | 2024-07-15 13:13 | XMS_ITS | Clinical Summary ---
Author Organization [facility] Address [address] [place] [address] Care Team Providers Care Sample Worker Name Role Phone ErumCaty SAVITA Primary Care Provider [phone] Allergies Active Allergy Reactions Criticality Noted Date Comments Cefaclor Rash Low 07/27/2021 Lisinopril Unknown 07/27/2021 hypertension Penicillins Rash Low 07/27/2021 Medications levothyroxine 75 MCG tablet Take 75 mcg by mouth every morning. Active methocarbamol 750 MG Tab Take 1 tablet by mouth as needed. Active ibuprofen 800 MG tablet Take 800 mg by mouth as needed for Pain. Active omeprazole 40 MG capsule Take 40 mg by mouth 2 (two) times a day. Active metoclopramide 10 MG tablet Take 10 mg by mouth 4 (four) times daily. Active dicyclomine 20 MG tablet Take 20 mg by mouth as needed. 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 Gender Identity Not on file Sexual Orientation Not on file Last Filed Vital Signs Vital Sign Reading Time Taken Comments Blood Pressure 134/68 08/01/2021 11:36 AM CDT Pulse 65 08/01/2021 11:36 AM CDT Temperature 36.6 C (97.8 F) 08/01/2021 11:23 AM CDT Respiratory Rate 14 08/01/2021 11:36 AM CDT Oxygen Saturation 98% 08/01/2021 11:36 AM CDT Inhaled Oxygen Concentration - - Weight 97.5 kg (215 lb) 07/27/2021 4:18 PM CDT Height 170.2 cm (5' 7 ) 07/27/2021 4:18 PM CDT Body Mass Index 33.67 07/27/2021 4:18 PM CDT Plan of Treatment Health Maintenance Due Date Last Done Comments Annual Physical 09/26/2002 HPV Vaccines (1 - Male 3-dose series) 09/26/2014 Hepatitis C 09/26/2017 COVID-19 Vaccine (1 - season) 2024 Influenza Adult (#1) 2024 DTaP, Tdap and Td Vaccines (8 - Td or Tdap) 05/09/2028 05/09/2018, 12/10/2013, 02/16/2005, Additional history exists Pneumococcal Vaccine: Pediatrics (0 to 5 Years) and At-Risk Patients (6 to 64 Years) Aged Out 04/05/2000 No longer eligible based on patient's age to complete this topic Hepatitis B Vaccines Completed 05/29/2001, 01/25/2000, 1999 Meningococcal B Vaccine Aged Out No l onger eligible based on patient's age to complete this topic Meningococcal Vaccine Aged Out No yoni ernestine eligible based on patient's age to complete this topic RSV Immunizations Under 20 Months Aged Out No longer eligible based on patient's age to complete this topic Insurance [facility] Care Teams Sample Worker Relationship Specialty Start Date End Date Caty Danielson NP [address] [place] [id number] PCP - General Nurse Practitioner Family 06/23/21
--- OUTSIDE RECORDS SUMMARY | 2024-07-15 13:13 | XMS_ITS | Clinical Summary ---
Author Organization [facility] Address [address] [place] [address] Care Team Providers Care Scenic Artist Name Role Phone Silvia Sanders PA-C Primary Care Provider Source Comments [facility],non-owned Affiliates and Associated Physician Practices is amultiple site organization consisting of ambulatory clinics and hospital sitesin [place], [place], [place] and [place]. This disclosure is being madepursuant to the Care Everywhere program and may not contain all information available regarding this patient. Last updated 18.[facility] Allergies Active Allergy Reactions Criticality Noted Date Comments Amoxicillin Rash High 05/21/2022 Cefaclor Rash 09/05/2009 Lisinopril Elevated Blood Pressure High 05/21/2022 Medications * Be aware that medications may not be up to date on this document. Alwaysverify current medications with the patient. Medication Sig Dispensed Refills Start Date End Date Status levothyroxine (Synthroid) 75 MCG tablet Take 1 (one) tablet by mouth daily before breakfast Active amLODIPine (Norvasc) 2.5 MG tablet Take 1 (one) tablet by mouth once daily Active lactobacillus extra strength (Florajen) capsule Take 1 (one) capsule by mouth 3 times daily Active omeprazole (PriLOSEC) 20 MG capsule Take 1 (one) capsule by mouth daily before breakfast Active Active Problems Patient Care Coordination No te Formatting of this note migh t be different from the original. Has aberrant right subclavian artery. Problem Noted Date Diagnosed Date Abdominal pain, RUQ (right upper quadrant) 08/29 Assessment & Plan (08/31/2016 1:23 PM CDT): Assessment: Tonny De La Vega Danielle is a 15 y.o. male who presents with RUQ. Pt now with dark urine, vomiting and diarrhea, elevated liver enzymes and increased bilirubin with abdominal pain. CT not indicative of gall bladder pathology but does note hepatosplenomegaly. With atypical lymphocytes and hepatosplenomegaly present more consistent with EBV picture. Hepatitis A/B/C unlikely given non-reactive status on labs. AIHA unlikely given negative zulma and stable H/H while here. AST/ALT and Tbili down somewhat today. Plan: -Mycoplasma PCR, EBV PCR, CMV pending -Advance diet as tolerated to regular, D5 1/2 NS @ 60 ml/hr, will decrease as tolerates PO -Encourage pt to increase PO intake today, must drink at least 1.5L before 1700 to consider d/c -Continue home Zoloft and Metoprolol - Vitals Q8H - I/Os - ondansetron 4mg PO Q6hrs PRN nausea - oxycodone 5mg PO Q6hrs PRN moderate pain. Assessment & Plan (08/31/2016 12:46 PM CDT): Assessment: Tonny Conde is a 15 y.o. male who presents with RUQ. Pt now with dark urine, vomiting and diarrhea, elevated liver enzymes and increased bilirubin with abdominal pain. CT not indicative of gall bladder pathology but does note hepatosplenomegaly. With atypical lymphocytes and hepatosplenomegaly present more consistent with EBV picture. Hepatitis A/B/C unlikely given non-reactive status on labs. AIHA unlikely given negative zulma and stable H/H while here. AST/ALT and Tbili down somewhat today. Plan: -Mycoplasma PCR, EBV PCR, CMV pending -Advance diet as tolerated to regular, D5 1/2 NS @ 60 ml/hr, will decrease as tolerates PO - encourage pt to increase PO intake today, must drink at least 1.5L before 1700 to consider d/c -Continue home Zoloft and Metoprolol - Vitals Q8H - I/Os - ondansetron 4mg PO Q6hrs PRN nausea - oxycodone 5mg PO Q6hrs PRN moderate pain Assessment & Plan (08/30/2016 11:06 AM CDT): Assessment: Tonny Conde is a 15 y.o. male who presents with RUQ. Pt now with dark urine, vomiting and diarrhea, elevated liver enzymes and increased bilirubin with abdominal pain. CT not indicative of gall bladder pathology but does note hepatosplenomegaly. Would be concerned about viral hepatitis. Also consider AIHA secondary to EBV or m. Pneumoniae, but less likely with negative zulma and stable H/H. With atypical lymphocytes and hepatosplenomegaly present more consistent with EBV picture. Plan: -Mycoplasma PCR, EBV PCR, CMV, Hepatitis panel pending - repeat CBC and CMP today -Advance diet as tolerated to regular, D5 1/2 NS @ 125 ml/hr, will decrease as tolerates PO -Continue home Zoloft and Metoprolol - Vitals Q8H - I/Os Assessment & Plan (08/30/2016 10:57 AM CDT): Assessment: Tonny Conde is a 15 y.o. male who presents with RUQ. Pt now with dark urine, vomiting and diarrhea, elevated liver enzymes and increased bilirubin with abdominal pain. CT not indicative of gall bladder pathology but does note hepatosplenomegaly. Would be concerned about viral hepatitis. Also consider AIHA secondary to EBV or m. Pneumoniae, but less likely with negative zulma and stable H/H. With atypical lymphocytes and hepatosplenomegaly present more consistent with EBV picture. Plan: -Mycoplasma PCR, EBV PCR, CMV, Hepatitis panel pending - repeat CBC and CMP today -Advance diet as tolerated to regular, D5 1/2 NS @ 125 ml/hr, will decrease as tolerates PO -Restart home Zoloft and Metoprolol - Vitals Q8H - I/Os Assessment & Plan (08/29/2016 4:20 PM CDT): Assessment: Tonny Conde is a 15 y.o. male who presents with RUQ. Pt now with dark urine, vomiting and diarrhea, elevated liver enzymes and increased bilirubin with abdominal pain. CT not indicative of gall bladder pathology but does note hepatosplenomegaly. Would be concerned about viral hepatitis. Also consider AIHA secondary to EBV or m. Pneumoniae. With atypical lymphocytes and hepatosplenomegaly present more consistent with EBV picture. Plan: -Will obtain Mycoplasma PCR, EBV PCR, Direct zulma, CMV, Hepatitis panel -Advance diet as tolerated to regular, D5 1/2 NS @ 125 ml/hr, will decrease as tolerates PO -Restart home Zoloft and Metoprolol - Vitals Q8H - I/Os Assessment & Plan (08/29/2016 6:01 AM CDT): Assessment: Tonny Conde is a 15 y.o. male who presents with RUQ. Patient uncooperative this AM after long night in OSH and transfer to [facility]. With patient age would have concern for viral hepatitis or mononucleosis. Cholelithiasis or cholecystitis less likely with normal outside CT/US, however will have radiology review CT/US at [facility]. Cholestasis remains a possibility however, less likely given presentation at OSH. Will have narrow differential based on history of patient. Plan: - Admit to [place] Team: Dr. Shelley - Advance diet as tolerated to regular - Vitals Q8H - D5 1/2 NS @ 125 ml/hr, will decrease as tolerates PO - I/Os - CT/US outside consult - Consider mono and viral hepatitis testing - Repeat CBC, CMP, and Dbili at 1300 Lumbosacral spondylosis without myelopathy 03/24 Coarctation of aorta 05/22/2011 Assessment & Plan (05/21/2022 4:15 PM LUNCHROOM OPERATOR): IMPRESSION: Tonny is a 21-year-old young man with: 1. Coarctation of the aorta. a. Status post balloon angioplasty, 1999. b. Status post operative coarctectomy, 1999. c. No residual coarctation (by pulses and echo). 2. Aberrant right subclavian artery. 3. Systemic hypertension. 4. Hypothyroidism. PLAN: Tonny's objective evaluation isn't all that significantly changed from when I last saw him in 2016: he continues to have mild systemic hypertension (now on low dose amlodipine), with no residual coarctation by exam (normal femoral pulses) or echo, although he does have a mild blood pressure gradient. I recommend a cardiac MRI to better evaluate the aortic arch, which can be done electively, to exclude prison complications such as an aneurysm at the aortic arch anastamosis site. I would also recommend he increase the amlodipine to 5 mg daily and continue to increase as needed to maintain normal blood pressure. His left ventricle is mildly hypertrophied, suggesting he has had longstanding hypertension. I scheduled a follow up evaluation in 1 years' time and will repeat his exam, ECG, and echocardiogram at that visit, and will follow up on his MRI once that is completed. He has no restrictions from a cardiac standpoint regarding his routine care or activity. He does not require SBE prophylaxis at time of predictable risk. Assessment & Plan (12/26/2015 5:43 PM CDT): IMPRESSION: Tonny is a 15-year-old young man with: 1. Coarctation of the aorta. a. Status post balloon angioplasty, 1999. b. Status post operative coarctectomy, 1999. c. No residual coarctation. 2. Aberrant right subclavian artery. 3. Systemic hypertension. PLAN: Tonny's objective evaluation today is significant for an improved blood pressure (normal in clinic today, recognizing they have not been normal at home). His exam is unchanged, and his ECG and echocardiogram not significantly changed. His hypertension seems to be a bit challenging to control, and his measurements at home have been quite elevated. Children with repaired coarctation of the aorta are at risk for developing systemic hypertension; this is supported by his continued mild left ventricular hypertrophy on his echocardiogram. I worry that the fatigue and activity intolerance he describes may be related to the metoprolol. Thus I think it would be worthwhile to try to switch him over to an BECK inhibitor to see if that helps his symptoms. I would like to wean the metoprolol back through the week (25 mg bid tomorrow and Saturday, 25 mg qday and start the lisinopril at 20 mg po qday on Saturday). I asked him to contact me as he continues to monitor his blood pressure at home as the changes are made; I also suggested having his blood pressure checked by the school nurse would be helpful to correlate to what he is measuring at home. I scheduled a follow up visit in 2 months to recheck his blood pressure, and anticipate discussing his measurements over the phone as his medication is changed (and may need to increase the lisinopril before his next visit). He continues to have occasional chest pain; I think the most likely etiology is musculoskeletal pain. The fact that the pain occurs often at rest, is sharp in quality, is made worse by taking a deep breath supports this. There is no residual coarctation and his pulses (from left arm, carotids, and legs) are all equal. The right arm pulse is mildly diminished when compared to the others; he has an aberrant right subclavian artery, which likely accounts for this finding. In the meantime, I would not restrict him in any way from his routine care or activity. At some point in the future I will likely perform a cardiac MRI to thoroughly evaluate his aortic arch. He does not require SBE prophylaxis at time of predictable risk. Assessment & Plan (02/14/2015 11:29 PM CDT): IMPRESSION: Tonny is an 13-year-old young man with: 1. Coarctation of the aorta. a. Status post balloon angioplasty, 1999. b. Status post operative coarctectomy, 1999. c. No residual coarctation. 2. Aberrant right subclavian artery. 3. Systemic hypertension. PLAN: Tonny has now been diagnosed with systemic hypertension, which children with repaired coarctation of the aorta are at risk for; this is supported by his mild left ventricular hypertrophy on his echocardiogram. His blood pressure is better after you had started metoprolol, although he remains mildly hypertensive for his age and height. He is fatigued on the medication; I explained this often improves over time and I would give it another week or two to see if this improves. If he remains fatigued, my recommendation would be to switch to an BECK inhibitor (I typically use lisinopril in older children). Either way, his antihypertensive medications will need to be titrated if he remains mildly hypertensive; I am happy to help with this if you would like. I also suggested he cut back on fast foods and salt intake. He continues to have occasional chest pain; I think the most likely etiology is musculoskeletal pain. The fact that the pain occurs at rest, is sharp in quality, is made worse by taking a deep breath supports this. There is no residual coarctation and his pulses (from left arm, carotids, and legs) are all equal. The right arm pulse is mildly diminished when compared to the others; he has an aberrant right subclavian artery, which likely accounts for this finding. I plan on seeing him back in my [facility] in six months' time at which point a repeat exam, 12 lead ECG, and echocardiogram will be performed. In the meantime, I would not restrict him in any way from his routine care or activity. At some point in the future I will likely perform a cardiac MRI to thoroughly evaluate his aortic arch. He does not require SBE prophylaxis at time of predictable risk. Assessment & Plan (03/31/2014 8:44 AM LUNCHROOM OPERATOR): IMPRESSION: Tonny is an 13-year-old young man with: 1. Coarctation of the aorta. a. Status post balloon angioplasty, 1999. b. Status post operative coarctectomy, 1999. c. No residual coarctation. 2. Aberrant right subclavian artery. 3. Probable musculoskeletal chest pain. PLAN: Tonny has had significant chest pain for the past 1 1/2 weeks. Given his unchanged exam, ECG, and echocardiogram; negative chest x-ray and labs (including cardiac enzymes); I think the most likely etiology is musculoskeletal pain. The fact that the pain is made worse by taking a deep breath supports this. I suggested to resume the Naproxen and take for a week straight with minimal activity, and to call me at the end of the week if the pain is persistent in spite of this. If he continues to have pain, consideration could be given to obtaining a CT angiogram to further evaluate his aorta (although admittedly by exam and echo his aorta appears unchanged). There is no residual coarctation and his pulses (from left arm, carotids, and legs) are all equal. The right arm pulse is mildly diminished when compared to the others; he has an aberrant right subclavian artery, which may account for this finding. His resting blood pressure was high normal (in the left arm and legs), and when he completed a graded exercise stress test earlier in the summer his blood pressure was mildly elevated and remained elevated throughout the study. Children with coarctation of the aorta have a higher incidence of hypertension than the general population (even in the absence of a residual obstruction), and Tonny may eventually be labeled as having hypertension. Given his high-normal reading in clinic, I wouldn't label him as having hypertension just yet (and would ascribe the elevated readings by the school nurse as worsened by his chest pain). He does have mild left ventricular hypertrophy; his left ventricular internal dimensions are also mildly dilated and his resting heart rate was low. These are thus most likely consistent with having an athlete's heart given the multiple competitive sports that he plays. I plan on seeing him back in my [facility] clinic in six months' time at which point a repeat exam, 12 lead ECG, and echocardiogram will be performed. In the meantime, I would not restrict him in any way from his routine care or activity. At some point in the future I will likely perform a cardiac MRI to thoroughly evaluate his aortic arch. He does not require SBE prophylaxis at time of predictable risk. Assessment & Plan (10/08/2013 1:38 PM CDT): IMPRESSION: Tonny is an 13-year-old young man with: 1. Coarctation of the aorta. a. Status post balloon angioplasty, 1999. b. Status post operative coarctectomy, 1999. c. No residual coarctation. 2. Aberrant right subclavian artery. PLAN: Tonny has had a great result from his operative repair of his coarctation of the aorta. There is no residual coarctation and his pulses (from left arm, carotids, and legs) are all equal. The right arm pulse is mildly diminished when compared to the others; he has an aberrant right subclavian artery, which may account for this finding. His resting blood pressure was high normal (in the left arm and legs), and when I put him on the treadmill his blood pressure was mildly elevated and remained elevated throughout the study. Children with coarctation of the aorta have a higher incidence of hypertension than the general population (even in the absence of a residual obstruction), and Tonny may eventually be labeled as having hypertension. Given his high-normal reading in clinic, I wouldn't label him as having hypertension just yet. He does have mild left ventricular hypertrophy; his left ventricular internal dimensions are also mildly dilated and his resting heart rate was low. These are thus most likely consistent with having an athlete's heart given the multiple competitive sports that he plays. For today I cleared him to take part in competitive athletics. I plan on seeing him back in my [facility] in one years' time at which point a repeat exam, 12 lead ECG, and echocardiogram will be performed. In the meantime, I would not restrict him in any way from his routine care or activity. At some point in the future I will likely perform a cardiac MRI to thoroughly evaluate his aortic arch. He does not require SBE prophylaxis at time of predictable risk. Social History Tobacco Use Types Packs/Day Years Used Date Smoking Tobacco: Never Smokeless Tobacco: Never Tobacco Cessation:Counseling Given: Not Answered Alcohol Use Standard Drinks/Week Comments Yes 1 (1 standard drink = 0.6 oz pur e alcohol) 1 per week Sex and Gender Information Value Date Recorded Sex Assigned at Not on file Gender Identity Not on file Sexual Orientation Not on file Last Filed Vital Signs Vital Sign Reading Time Taken Comments Blood Pressure 119/68 06/20/2022 8:45 AM LUNCHROOM OPERATOR Pulse 67 06/20/2022 8:45 AM LUNCHROOM OPERATOR Temperature 36.8 C (98.3 F) 06/20/2022 7:26 AM LUNCHROOM OPERATOR Respiratory Rate 20 06/20/2022 7:26 AM LUNCHROOM OPERATOR Oxygen Saturation 100% 06/20/2022 8:45 AM LUNCHROOM OPERATOR Inhaled Oxygen Concentration 40% 09/06/2009 3 :45 PM CDT Weight 105.4 kg (232 lb 5.8 oz) 06/20/2022 7:07 AM LUNCHROOM OPERATOR Height 172.7 cm (5' 7.99 ) 06/20/2022 7:07 AM CS T Body Mass Index 35.34 06/20/2022 7:07 AM LUNCHROOM OPERATOR Plan of Treatment Health Maintenance Due Date Last Done Comments HIV SCREENING 09/26/2014 HPV VACCINE (1 - Male 3-dose series) 09/26/2014 DTAP/TDAP/TD VACCINES (1 - Tdap) 09/26/2018 HEPATITIS B VACCINE (1 of 3 - 19+ 3-dose series) 09/26/2018 COVID-19 VACCINE (1 - 2023-2 5 season) 2024 INFLUENZA VACCINE (#1) 2024 7, 02/02/2015 DEPRESSION SCREENING 05/06/2024 ZOSTER VACCINE (1 of 2) 09/26/2049 HEPATITIS C SCREENING Completed 08/29/2016 HIB VACCINE Aged Out No longer eligi ble based on patient's age to complete this topic MENINGOCOCCAL (Group B) VACCINE SHARED DECISION-MAKING Aged Out No longer eligible based on patient's age to complete this topic MENINGOCOCCAL GROUPS A/C/Y/W VACCINE Aged Out No longer eligible b ased on patient's age to complete this topic PNEUMOCOCCAL VACCINE Aged Out No long er eligible based on patient's age to complete this topic Procedures Procedure Name Priority Date/Time Associated Diagnosis Comments HEPATITIS SCREEN ACUTE Routine 08/29/2016 1:04 PM CDT from Last 3 Months or Most Recently Relevant to Health Maintenance Results * HEPATITIS SCREEN ACUTE (08/29/2016 1:04 PM CDT) HAV Antibody IgM Non Reactive Non Reactive 08/31/2016 9:30 AM CDT [facility] HBsAg Non Reactive Non Reactive 08/31/2016 9:30 AM CDT [facility] HBc Antibody IgM Non Reactive Non Reactive 08/31/2016 9:30 AM CDT [facility] HCV Antibody Screen Non Reactive Non Reactive 08/31/2016 9:30 AM CDT [facility] HCV S/C Ratio 0.17 0.00 - 0.79 08/31/2016 9:30 AM CDT [facility] Comment: Zchflt-vc-jgsavd ratio (S/CO) <0.80: Non Reactive Blood BLOOD SPECIMEN / Unknown Lab Venipuncture / Unknown 08/29/2016 1:04 PM CDT 08/29/2016 1:15 PM CDT Narrative [facility] - 08/31/2016 9:30 AM CDT Non Reactive - Antibodies to Hepatitis C virus (HCV) were not detected, result does not exclude early acute HCV infection. Non Reactive - Antibodies to Hepatitis C virus (HCV) were not detected, result does not exclude early acute HCV infection. Jorge Shelley DO LAB - CHEMISTRY [place] [facility] [address] [place] [address] from Last 3 Months or Most Recently Relevant to Health Maintenance Advance Directives * Full Code (Latest Code Status on File) Date Activated Date Inactivated Comments 08/29/2016 5:51 AM 08/31/2016 5:31 PM Care Teams Scenic Artist Relationship Specialty Start Date End Date Silvia Sanders [facility] [address] [place] [id number] PCP - General 05/21/22
--- OUTSIDE RECORDS SUMMARY | 2024-07-15 13:13 | XMS_ITS | Patient Health Summary ---
Author Organization [facility] Address [address] [place] [address] Care Team Providers Care Aircraft Detail Draftsperson Name Role Phone Silvia Sanders PA-C Primary Care Provider Note from [facility],non-owned Affiliates and Associated Physician Practices is amultiple site organization consisting of ambulatory clinics and hospital sitesin [place], [place] and [place]. This disclosure is being madepursuant to the Care Everywhere program and may not contain all information available regarding this patient. Last updated 18.[facility] Allergies * Amoxicillin(Rash) -High Criticality * Cefaclor(Rash) * Lisinopril(Elevated Blood Pressure) -High Criticality Medications * Be aware that medications may not be up to date on this document. Alwaysverify current medications with the patient. * levothyroxine (Synthroid) 75 MCG tablet Take 1 (one) tablet by mouth daily before breakfast * amLODIPine (Norvasc) 2.5 MG tablet Take 1 (one) tablet by mouth once daily * lactobacillus extra strength (Florajen) capsule Take 1 (one) capsule by mouth 3 times daily * omeprazole (PriLOSEC) 20 MG capsule Take 1 (one) capsule by mouth daily before breakfast Active Problems Problem Noted Date Diagnosed Date Abdominal pain, RUQ (right upper quadrant) 08/29 Lumbosacral spondylosis without myelopathy 03/24 Coarctation of aorta 05/22/2011 Social History Tobacco Use Types Packs/Day Years [...] Comments Blood Pressure 119/68 06/20/2022 8:45 AM SCENIC ARTS SUPERVISOR Pulse 67 06/20/2022 8:45 AM [employer] SUPERVISOR Temperature 36.8 C (98.3 F) 06/20/2022 7:26 AM SC[employer] ARTS SUPERVISOR Respiratory Rate 20 06/20/2022 7:26 AM SC[employer] ARTS SUPERVISOR Oxygen Saturation 100% 06/20/2022 8:45 AM SCENIC ARTS SUPERVISOR Inhaled Oxygen Concentration 40% 09/06/2009 3 :45 PM CDT Weight 105.4 kg (232 lb 5.8 oz) 06/20/2022 7:07 AM SCENIC ARTS SUPERVISOR Height 172.7 cm (5' 7.99 ) 06/20/2022 7:07 AM CS T Body Mass Index 35.34 06/20/2022 7:07 AM [employer]S SUPERVISOR Procedures * MRI ANGIO CHEST W CONTRAST(Performed 06/20/2022) Performed for Coarctation of aorta (HCC) * MRI CARDIAC STUDY W CONTRAST(Performed 06/20/2022) Performed for Coarctation of aorta (HCC) * ECHO CONSULT - PEDIATRIC(Performed 05/21/2022) Performed for Coarctation of aorta (HCC) * EKG 15-LEAD(Performed 05/21/2022) Performed for Coarctation of aorta (HCC) * IMAGING/RADIOLOGY/XRAY RESULTS ORDER(Performed 09/04/2016) * DIFFERENTIAL MANUAL(Performed 08/31/2016) * COMPREHENSIVE METABOLIC PANEL(Performed 08/31/2016) * CBC W AUTO DIFFERENTIAL(Performed 08/31/2016) * CYTOMEGALOVIRUS QUAL PCR(Performed 08/31/2016) * COMPREHENSIVE METABOLIC PANEL(Performed 08/30/2016) * CBC W AUTO DIFFERENTIAL(Performed 08/30/2016) * BRUNO DIRECT(Performed 08/29/2016) * DIFFERENTIAL MANUAL(Performed 08/29/2016) * HEPATITIS SCREEN ACUTE(Performed 08/29/2016) * ELSIE-ABDI VIRUS PCR QUANTITATIVE WHOLE BLOOD(Performed 08/29/2016) * BILIRUBIN DIRECT(Performed 08/29/2016) * COMPREHENSIVE METABOLIC PANEL(Performed 08/29/2016) * CBC W AUTO DIFFERENTIAL(Performed 08/29/2016) * MYCOPLASMA PNEUMONIAE PCR(Performed 08/29/2016) * URINE MICROSCOPIC ONLY REFLEX TO CULTURE(Performed 08/29/2016) * URINALYSIS REFLEX MICROSCOPIC REFLEX CULTURE(Performed 08/29/2016) * CULTURE URINE(Performed 08/29/2016) * CT OUTSIDE CONSULTATION(Performed 08/29/2016) Performed for Nausea and vomiting, intractability of vomiting not specified, unspecified vomiting type, Abdominal pain, RUQ (right upper quadrant) * ECHO CONSULT - PEDIATRIC(Performed 12/26/2015) Performed for Coarctation of aorta (HCC) * EKG 15-LEAD(Performed 12/26/2015) Performed for Coarctation of aorta (HCC) * EKG 15-LEAD(Performed 02/14/2015) Performed for Coarctation of aorta (HCC) * ECHO CONSULT - PEDIATRIC(Performed 02/14/2015) Performed for Coarctation of aorta (HCC) * ECHO CONSULT - PEDIATRIC(Performed 03/29/2014) Performed for Coarctation of aorta (HCC) * LAB RESULTS ORDER(Performed 03/23/2014) * IMAGING/RADIOLOGY/XRAY RESULTS ORDER(Performed 03/23/2014) * EKG 15-LEAD(Performed 03/22/2014) Performed for Chest pain * ECHO CONSULT - PEDIATRIC(Performed 10/07/2013) Performed for Coarctation of aorta (HCC) * EKG 15-LEAD(Performed 10/07/2013) Performed for Coarctation of aorta (HCC) * XR LUMBAR SPINE 4VW OR MORE(Performed 08/11/2012) Performed for Lumbosacral spondylosis without myelopathy * XR LUMBAR SPINE 2 OR 3VW(Performed 05/12/2012) Performed for Lumbosacral spondylosis without myelopathy * IMAGING/RADIOLOGY/XRAY RESULTS ORDER(Performed 04/05/2012) * ECHO CONSULT - PEDIATRIC(Performed 05/22/2011) Performed for Coarctation of aorta * EKG 15-LEAD(Performed 05/22/2011) Performed for Coarctation of aorta * PATHOLOGY/CYTOLOGY REPORT ORDER(Performed 09/09/2009) * GROSS + MICRO EXAM(Performed 09/06/2009) Performed for Undescended Testis * ECHO CONSULT - PEDIATRIC(Performed 07/18/2009) * GROSS EXAM PATHOLOGY(Performed 1999) * GROSS + MICRO EXAM(Performed 1999) Results * MRI ANGIO CHEST W CONTRAST (06/20/2022 9:38 AM SCENIC ARTS SUPERVISOR) Anatomical Region Laterality Modality Chest Magnetic Resonan ce 06/21/2022 11:5 4 AM [employer] ARTS SUPERVISOR Impressions 06/21/2022 11:56 AM SCENIC ARTS SUPERVISOR Impression 1. Coarctation of the aorta s/p balloon angioplasty (1999), s/p surgical coarctectomy (1999) 2. No evidence of recoarctation, aortic aneurysm, or aortic dissection 3. Trileaflet aortic valve with no stenosis and no insufficiency 4. Mildly hypertrophied left ventricle with normal left ventricular systolic function (LVEDV: 137 mL, LVEDVi: 63 mL/m2, z: -1.3; LVEF: 66%; LV mass: 183 g, LV mass indexed: 84 g/m2, z: +2.1; IVSDd: 12.5 mm, LVPWd: 13 mm) 5. Normal right ventricular size with normal right ventricular systolic function Study was reviewed by Loyd Burrows MD and Vanesa Berumen MD > Interpreting Provider: Vanesa Berumen MD on 06/21/2022 11:56 AM Narrative 06/21/2022 11:56 AM SC[employer]S SUPERVISOR PROCEDURE: MRI ANGIO CHEST W CONTRAST, MRI CARDIAC STUDY W CONTRAST, DATE/TIME OF EXAM: 06/20/2022 9:38 AM, LOCATION [facility] INDICATION: Q25.1: Coarctation of aorta ADDITIONAL CLINICAL INFORMATION: Ordering Provider Reason For Exam: Technologist Note: Additional: COMPARISON: None. Type of examination Cardiac MRI morphology and function, Chest MRA with contrast, flow quantification, 3D rendering with interpretation and reporting of MRI, requiring image postprocessing on an independent workstation. Weight: 105.4 kg, Height: 172.7 cm, BSA: 2.18 m2 History: [age] year [age] male with history of coarctation of the aorta s/p balloon angioplasty 1999, s/p operative coarctectomy 1999, who has no residual coarctation by exam or echocardiogram, but continues to have a blood pressure gradient. Indication: MRI was performed to evaluate aortic arch. Sedation: No sedation was required. There were no adverse reactions. Comparison: None Technique: Using a 32 channel body coil on a 3 T [email or web address], the following sequences were performed: Three plane localizer. Cine IR, 3D whole heart IR FGRE, 4D flow. SSFP single shot axial stack, SSFP cine: 2 chamber left, 4 chamber, ventricular long-axis stack, left ventricular outflow tract, right ventricular outflow tract. Phase contrast was performed at the level of the aortic valve, pulmonary valve. 255 mg of ferumoxytol (2.42 mg/kg) (8 mg/mL dilution, 31.88 mL total) was administered as a slow infusion over 15 minutes. MRA information was acquired afterwards, and MIP, MPR, and 3D surface rendering, post-processing techniques were performed later. Findings: The heart position is levocardic. The stomach is on the left. The liver is on the right. The superior vena cava is on the right. The inferior vena cava is on the right. The superior vena cava and inferior vena cava return to the right atrium. The right atrium is normal. There is no ASD. The tricuspid valve is normal. The right ventricle is normal in size and function. There is no VSD. Right ventricular outflow tract is widely patent. Pulmonary valve is normal with no stenosis or regurgitation. The main pulmonary artery is widely patent. The branch pulmonary arteries are confluent. The left pulmonary artery is normal sized. The right pulmonary artery is normal sized. 4 pulmonary veins are seen. The pulmonary veins return to the left atrium. The left atrium is normal. The mitral valve is normal. The left ventricle is mildly hypertrophied with normal left ventricular systolic function (IVSDd: 12.5 mm, LVPWd: 13 mm). The aortic valve is normal. The aortic root is normal. The ascending aorta is normal. The aortic arch is left-sided with normal branching. The aortic arch demonstrates no narrowing, aneurysm, or dissection. Aortic Root measurements: Sinus of Valsalva:2.8 x 3.3 cm (z-score: 0; normal range: 2.35 - 3.75 cm) Arch Measurements: Ascending aorta at the level of the branch pulmonary arteries:2.5 x 2.5 cm (z-score: -0.8; normal range: 2.12 - 3.46 cm) Proximal Transverse arch:2 x 2.1 cm Distal Transverse Arch:1.93 x 1.93 cm (z-score: -1.2; normal range: 1.71 - 2.84 cm) Juxtaductal position:1.6 x 1.8 cm (z-score: -0.4; normal range: 1.2 - 2.47 cm) Aorta at the diaphragm:1.75 x 1.73 cm Pulmonary Measurements: Main Pulmonary artery:2.3 x 2.5 cm (z-score: -0.2; normal range: 1.73 - 3.23 cm) Left pulmonary artery:1.6 x 1.6 cm (z-score: 0.2; normal range: 1 - 2.09 cm) Right pulmonary artery:1.6 x 1.7 cm (z-score: 0.1; normal range: 1.11 - 2.16 cm) Atrioventricular Valve Measurements: Mitral annulus :3.2 cm (z-score: 0.2; normal range: 1.97 - 4.15 cm) Tricuspid annulus :3.8 cm (z-score: 1.3; normal range: 2.32 - 4.09 cm) Left Ventricular Functional Analysis: LV end diastolic volume: 137 mL LVEDV/BSA: 62.8 ml/m2 (z-score: -1.3, normal range: 53 - 112 ml/m2) LV end systolic volume: 47 mL LV end systolic volume/BSA: 21.6 mL/m2 LV Stroke volume: 90 mL LV ejection fraction:65.7% (normal: 55-73%) LV end diastolic mass: 183g LV Mass/BSA: 83.9 g/m2 (z-score: 2.1, normal range: 46 - 83 g/m2) Right Ventricular Functional Analysis: RV end diastolic volume: 168 mL RVEDV/BSA: 77.1 ml/m2 (z-score: -0.6, normal range: 58 - 114 ml/m2) RV end systolic volume: 84 mL RV end systolic volume/BSA: 38.5 mL/m2 RV Stroke volume: 84 mL Right Ventricular ejection fraction: 50% (normal: 48-63%) Phase Contrast: aortic valve Net flow: 81 mL/beat Phase Contrast: left pulmonary artery Net flow: 28ml/beat Phase Contrast: right pulmonary artery Net flow: 51.5ml/beat Procedure Note Vanesa Berumen MD - 06/21/2022 PROCEDURE: MRI ANGIO CHEST W CONTRAST, MRI CARDIAC STUDY W CONTRAST, DATE/TIME OF EXAM: 06/20/2022 9:38 AM, [facility] INDICATION: Q25.1: Coarctation of aorta ADDITIONAL CLINICAL INFORMATION: Ordering Provider Reason For Exam: Technologist Note: Additional: COMPARISON: None. Type of examination Cardiac MRI morphology and function, Chest MRA with contrast, flow quantification, 3D rendering with interpretation and reporting of MRI, requiring image postprocessing on an independent workstation. Weight: 105.4 kg, Height: 172.7 cm, BSA: 2.18 m2 History: [age] year [age] male with history of coarctation of the aorta s/p balloon angioplasty 1999, s/p operative coarctectomy 1999, who has no residual coarctation by exam or echocardiogram, but continues to have a blood pressure gradient. Indication: MRI was performed to evaluate aortic arch. Sedation: No sedation was required. There were no adverse reactions. Comparison: None Technique: Using a 32 channel body coil on a 3 T [email or web address], the followingsequences were performed: Three plane localizer. Cine IR, 3D whole heart IRFGRE, 4D flow. SSFP single shot axial stack, SSFP cine: 2 chamber left, 4 chamber, ventricular long-axis stack, left ventricular outflow tract,right ventricular outflow tract. Phase contrast was performed at the level of the aortic valve, pulmonary valve. 255 mg of ferumoxytol (2.42 mg/kg)(8 mg/mL dilution, 31.88 mL total) was administered as a slow infusionover 15 minutes. MRA information was acquired afterwards, and MIP, MPR, and3D surface rendering, post-processing techniques were performed later. Findings: The heart position is levocardic. The stomach is on the left. Theliver is on the right. The superior vena cava is on the right. The inferior vena cava is on the right. The superior vena cava and inferior venacava return to the right atrium. The right atrium is normal. There is no ASD. The tricuspid valve is normal. The right ventricle is normal in sizeand function. There is no VSD. Right ventricular outflow tract is widely patent. Pulmonary valve is normal with no stenosis or regurgitation.The main pulmonary artery is widely patent. The branch pulmonary arteriesare confluent. The left pulmonary artery is normal sized. The rightpulmonary artery is normal sized. 4 pulmonary veins are seen. The pulmonaryveins return to the left atrium. The left atrium is normal. The mitral valveis normal. The left ventricle is mildly hypertrophied with normal left ventricular systolic function (IVSDd: 12.5 mm, LVPWd: 13 mm). Theaortic valve is normal. The aortic root is normal. The ascending aorta is normal. The aortic arch is left-sided with normal branching. Theaortic arch demonstrates no narrowing, aneurysm, or dissection. Aortic Root measurements: Sinus of Valsalva:2.8 x 3.3 cm (z-score: 0; normal range: 2.35 - 3.75cm) Arch Measurements: Ascending aorta at the level of the branch pulmonary arteries:2.5 x 2.5 cm (z-score: -0.8; normal range: 2.12 - 3.46 cm) Proximal Transverse arch:2 x 2.1 cm Distal Transverse Arch:1.93 x 1.93 cm (z-score: -1.2; normal range:1.71 - 2.84 cm) Juxtaductal position:1.6 x 1.8 cm (z-score: -0.4; normal range: 1.2 - 2.47 cm) Aorta at the diaphragm:1.75 x 1.73 cm Pulmonary Measurements: Main Pulmonary artery:2.3 x 2.5 cm (z-score: -0.2; normal range: 1.73- 3.23 cm) Left pulmonary artery:1.6 x 1.6 cm (z-score: 0.2; normal range: 1 -2.09 cm) Right pulmonary artery:1.6 x 1.7 cm (z-score: 0.1; normal range: 1.11- 2.16 cm) Atrioventricular Valve Measurements: Mitral annulus :3.2 cm (z-score: 0.2; normal range: 1.97 - 4.15 cm) Tricuspid annulus :3.8 cm (z-score: 1.3; normal range: 2.32 - 4.09 cm) Left Ventricular Functional Analysis: LV end diastolic volume: 137 mL LVEDV/BSA: 62.8 ml/m2 (z-score: -1.3, normal range: 53 - 112 ml/m2) LV end systolic volume: 47 mL LV end systolic volume/BSA: 21.6 mL/m2 LV Stroke volume: 90 mL LV ejection fraction:65.7% (normal: 55-73%) LV end diastolic mass: 183g LV Mass/BSA: 83.9 g/m2 (z-score: 2.1, normal range: 46 - 83 g/m2) Right Ventricular Functional Analysis: RV end diastolic volume: 168 mL RVEDV/BSA: 77.1 ml/m2 (z-score: -0.6, normal range: 58 - 114 ml/m2) RV end systolic volume: 84 mL RV end systolic volume/BSA: 38.5 mL/m2 RV Stroke volume: 84 mL Right Ventricular ejection fraction: 50% (normal: 48-63%) Phase Contrast: aortic valve Net flow: 81 mL/beat Phase Contrast: left pulmonary artery Net flow: 28ml/beat Phase Contrast: right pulmonary artery Net flow: 51.5ml/beat Impression 1. Coarctation of the aorta s/p balloon angioplasty (1999), s/p surgical coarctectomy (1999) 2. No evidence of recoarctation, aortic aneurysm, or aortic dissection 3. Trileaflet aortic valve with no stenosis and no insufficiency 4. Mildly hypertrophied left ventricle with normal left ventricular systolic function (LVEDV: 137 mL, LVEDVi: 63 mL/m2, z: -1.3; LVEF: 66%;LV mass: 183 g, LV mass indexed: 84 g/m2, z: +2.1; IVSDd: 12.5 mm, LVPWd:13 mm) 5. Normal right ventricular size with normal right ventricular systolic function Study was reviewed by Loyd Burrows MD and Vanesa Berumen MD > Interpreting Provider: Vanesa Berumen MD on 06/21/2022 11:56 AM Robi Reina MD MR ORDERABLES * MRI CARDIAC STUDY W CONTRAST (06/20/2022 9:37 AM [employer] ART[employer] SUPERVISOR) Anatomical Region Laterality Modality Chest Magnetic Resonan ce 06/21/2022 11:5 4 AM SC[employer] ARTS SUPERVISOR Impressions 06/21/2022 11:56 AM SCENIC ARTS SUPERVISOR Impression 1. Coarctation of the aorta s/p balloon angioplasty (1999), s/p surgical coarctectomy (1999) 2. No evidence of recoarctation, aortic aneurysm, or aortic dissection 3. Trileaflet aortic valve with no stenosis and no insufficiency 4. Mildly hypertrophied left ventricle with normal left ventricular systolic function (LVEDV: 137 mL, LVEDVi: 63 mL/m2, z: -1.3; LVEF: 66%; LV mass: 183 g, LV mass indexed: 84 g/m2, z: +2.1; IVSDd: 12.5 mm, LVPWd: 13 mm) 5. Normal right ventricular size with normal right ventricular systolic function Study was reviewed by Loyd Burrows MD and Vanesa Berumen MD > Interpreting Provider: Vanesa Berumen MD on 06/21/2022 11:56 AM Narrative 06/21/2022 11:56 AM SCEN[employer] ARTS SUPERVISOR PROCEDURE: MRI ANGIO CHEST W CONTRAST, MRI CARDIAC STUDY W CONTRAST, DATE/TIME OF EXAM: 06/20/2022 9:38 AM, LOCATION [facility] INDICATION: Q25.1: Coarctation of aorta ADDITIONAL CLINICAL INFORMATION: Ordering Provider Reason For Exam: Technologist Note: Additional: COMPARISON: None. Type of examination Cardiac MRI morphology and function, Chest MRA with contrast, flow quantification, 3D rendering with interpretation and reporting of MRI, requiring image postprocessing on an independent workstation. Weight: 105.4 kg, Height: 172.7 cm, BSA: 2.18 m2 History: 22.6 year old male with history of coarctation of the aorta s/p balloon angioplasty 1999, s/p operative coarctectomy 1999, who has no residual coarctation by exam or echocardiogram, but continues to have a blood pressure gradient. Indication: MRI was performed to evaluate aortic arch. Sedation: No sedation was required. There were no adverse reactions. Comparison: None Technique: Using a 32 channel body coil on a 3 T [email or web address], the following sequences were performed: Three plane localizer. Cine IR, 3D whole heart IR FGRE, 4D flow. SSFP single shot axial stack, SSFP cine: 2 chamber left, 4 chamber, ventricular long-axis stack, left ventricular outflow tract, right ventricular outflow tract. Phase contrast was performed at the level of the aortic valve, pulmonary valve. 255 mg of ferumoxytol (2.42 mg/kg) (8 mg/mL dilution, 31.88 mL total) was administered as a slow infusion over 15 minutes. MRA information was acquired afterwards, and MIP, MPR, and 3D surface rendering, post-processing techniques were performed later. Findings: The heart position is levocardic. The stomach is on the left. The liver is on the right. The superior vena cava is on the right. The inferior vena cava is on the right. The superior vena cava and inferior vena cava return to the right atrium. The right atrium is normal. There is no ASD. The tricuspid valve is normal. The right ventricle is normal in size and function. There is no VSD. Right ventricular outflow tract is widely patent. Pulmonary valve is normal with no stenosis or regurgitation. The main pulmonary artery is widely patent. The branch pulmonary arteries are confluent. The left pulmonary artery is normal sized. The right pulmonary artery is normal sized. 4 pulmonary veins are seen. The pulmonary veins return to the left atrium. The left atrium is normal. The mitral valve is normal. The left ventricle is mildly hypertrophied with normal left ventricular systolic function (IVSDd: 12.5 mm, LVPWd: 13 mm). The aortic valve is normal. The aortic root is normal. The ascending aorta is normal. The aortic arch is left-sided with normal branching. The aortic arch demonstrates no narrowing, aneurysm, or dissection. Aortic Root measurements: Sinus of Valsalva:2.8 x 3.3 cm (z-score: 0; normal range: 2.35 - 3.75 cm) Arch Measurements: Ascending aorta at the level of the branch pulmonary arteries:2.5 x 2.5 cm (z-score: -0.8; normal range: 2.12 - 3.46 cm) Proximal Transverse arch:2 x 2.1 cm Distal Transverse Arch:1.93 x 1.93 cm (z-score: -1.2; normal range: 1.71 - 2.84 cm) Juxtaductal position:1.6 x 1.8 cm (z-score: -0.4; normal range: 1.2 - 2.47 cm) Aorta at the diaphragm:1.75 x 1.73 cm Pulmonary Measurements: Main Pulmonary artery:2.3 x 2.5 cm (z-score: -0.2; normal range: 1.73 - 3.23 cm) Left pulmonary artery:1.6 x 1.6 cm (z-score: 0.2; normal range: 1 - 2.09 cm) Right pulmonary artery:1.6 x 1.7 cm (z-score: 0.1; normal range: 1.11 - 2.16 cm) Atrioventricular Valve Measurements: Mitral annulus :3.2 cm (z-score: 0.2; normal range: 1.97 - 4.15 cm) Tricuspid annulus :3.8 cm (z-score: 1.3; normal range: 2.32 - 4.09 cm) Left Ventricular Functional Analysis: LV end diastolic volume: 137 mL LVEDV/BSA: 62.8 ml/m2 (z-score: -1.3, normal range: 53 - 112 ml/m2) LV end systolic volume: 47 mL LV end systolic volume/BSA: 21.6 mL/m2 LV Stroke volume: 90 mL LV ejection fraction:65.7% (normal: 55-73%) LV end diastolic mass: 183g LV Mass/BSA: 83.9 g/m2 (z-score: 2.1, normal range: 46 - 83 g/m2) Right Ventricular Functional Analysis: RV end diastolic volume: 168 mL RVEDV/BSA: 77.1 ml/m2 (z-score: -0.6, normal range: 58 - 114 ml/m2) RV end systolic volume: 84 mL RV end systolic volume/BSA: 38.5 mL/m2 RV Stroke volume: 84 mL Right Ventricular ejection fraction: 50% (normal: 48-63%) Phase Contrast: aortic valve Net flow: 81 mL/beat Phase Contrast: left pulmonary artery Net flow: 28ml/beat Phase Contrast: right pulmonary artery Net flow: 51.5ml/beat Procedure Note Vanesa Berumen MD - 06/21/2022 PROCEDURE: MRI ANGIO CHEST W CONTRAST, MRI CARDIAC STUDY W CONTRAST, DATE/TIME OF EXAM: 06/20/2022 9:38 AM, [facility] INDICATION: Q25.1: Coarctation of aorta ADDITIONAL CLINICAL INFORMATION: Ordering Provider Reason For Exam: Technologist Note: Additional: COMPARISON: None. Type of examination Cardiac MRI morphology and function, Chest MRA with contrast, flow quantification, 3D rendering with interpretation and reporting of MRI, requiring image postprocessing on an independent workstation. Weight: 105.4 kg, Height: 172.7 cm, BSA: 2.18 m2 History: 22.6 year old male with history of coarctation of the aorta s/p balloon angioplasty 1999, s/p operative coarctectomy 1999, who has no residual coarctation by exam or echocardiogram, but continues to have a blood pressure gradient. Indication: MRI was performed to evaluate aortic arch. Sedation: No sedation was required. There were no adverse reactions. Comparison: None Technique: Using a 32 channel body coil on a 3 T [employer], the followingsequences were performed: Three plane localizer. Cine IR, 3D whole heart IRFGRE, 4D flow. SSFP single shot axial stack, SSFP cine: 2 chamber left, 4 chamber, ventricular long-axis stack, left ventricular outflow tract,right ventricular outflow tract. Phase contrast was performed at the level of the aortic valve, pulmonary valve. 255 mg of ferumoxytol (2.42 mg/kg)(8 mg/mL dilution, 31.88 mL total) was administered as a slow infusionover 15 minutes. MRA information was acquired afterwards, and MIP, MPR, and3D surface rendering, post-processing techniques were performed later. Findings: The heart position is levocardic. The stomach is on the left. Theliver is on the right. The superior vena cava is on the right. The inferior vena cava is on the right. The superior vena cava and inferior venacava return to the right atrium. The right atrium is normal. There is no ASD. The tricuspid valve is normal. The right ventricle is normal in sizeand function. There is no VSD. Right ventricular outflow tract is widely patent. Pulmonary valve is normal with no stenosis or regurgitation.The main pulmonary artery is widely patent. The branch pulmonary arteriesare confluent. The left pulmonary artery is normal sized. The rightpulmonary artery is normal sized. 4 pulmonary veins are seen. The pulmonaryveins return to the left atrium. The left atrium is normal. The mitral valveis normal. The left ventricle is mildly hypertrophied with normal left ventricular systolic function (IVSDd: 12.5 mm, LVPWd: 13 mm). Theaortic valve is normal. The aortic root is normal. The ascending aorta is normal. The aortic arch is left-sided with normal branching. Theaortic arch demonstrates no narrowing, aneurysm, or dissection. Aortic Root measurements: Sinus of Valsalva:2.8 x 3.3 cm (z-score: 0; normal range: 2.35 - 3.75cm) Arch Measurements: Ascending aorta at the level of the branch pulmonary arteries:2.5 x 2.5 cm (z-score: -0.8; normal range: 2.12 - 3.46 cm) Proximal Transverse arch:2 x 2.1 cm Distal Transverse Arch:1.93 x 1.93 cm (z-score: -1.2; normal range:1.71 - 2.84 cm) Juxtaductal position:1.6 x 1.8 cm (z-score: -0.4; normal range: 1.2 - 2.47 cm) Aorta at the diaphragm:1.75 x 1.73 cm Pulmonary Measurements: Main Pulmonary artery:2.3 x 2.5 cm (z-score: -0.2; normal range: 1.73- 3.23 cm) Left pulmonary artery:1.6 x 1.6 cm (z-score: 0.2; normal range: 1 -2.09 cm) Right pulmonary artery:1.6 x 1.7 cm (z-score: 0.1; normal range: 1.11- 2.16 cm) Atrioventricular Valve Measurements: Mitral annulus :3.2 cm (z-score: 0.2; normal range: 1.97 - 4.15 cm) Tricuspid annulus :3.8 cm (z-score: 1.3; normal range: 2.32 - 4.09 cm) Left Ventricular Functional Analysis: LV end diastolic volume: 137 mL LVEDV/BSA: 62.8 ml/m2 (z-score: -1.3, normal range: 53 - 112 ml/m2) LV end systolic volume: 47 mL LV end systolic volume/BSA: 21.6 mL/m2 LV Stroke volume: 90 mL LV ejection fraction:65.7% (normal: 55-73%) LV end diastolic mass: 183g LV Mass/BSA: 83.9 g/m2 (z-score: 2.1, normal range: 46 - 83 g/m2) Right Ventricular Functional Analysis: RV end diastolic volume: 168 mL RVEDV/BSA: 77.1 ml/m2 (z-score: -0.6, normal range: 58 - 114 ml/m2) RV end systolic volume: 84 mL RV end systolic volume/BSA: 38.5 mL/m2 RV Stroke volume: 84 mL Right Ventricular ejection fraction: 50% (normal: 48-63%) Phase Contrast: aortic valve Net flow: 81 mL/beat Phase Contrast: left pulmonary artery Net flow: 28ml/beat Phase Contrast: right pulmonary artery Net flow: 51.5ml/beat Impression 1. Coarctation of the aorta s/p balloon angioplasty (1999), s/p surgical coarctectomy (1999) 2. No evidence of recoarctation, aortic aneurysm, or aortic dissection 3. Trileaflet aortic valve with no stenosis and no insufficiency 4. Mildly hypertrophied left ventricle with normal left ventricular systolic function (LVEDV: 137 mL, LVEDVi: 63 mL/m2, z: -1.3; LVEF: 66%;LV mass: 183 g, LV mass indexed: 84 g/m2, z: +2.1; IVSDd: 12.5 mm, LVPWd:13 mm) 5. Normal right ventricular size with normal right ventricular systolic function Study was reviewed by Loyd Burrows MD and Vanesa Berumen MD > Interpreting Provider: Vanesa Berumen MD on 06/21/2022 11:56 AM Robi Reina MD MR ORDERABLES * ECHO CONSULT - PEDIATRIC (05/21/2022 2:09 PM [employer] SUPERVISOR) Only the most recent of7 resultswithin the time period is included. 05/21/2022 2:09 PM [employer] SUPERVISOR Narrative Procedure Note Robi Reina MD - 05/21/[address] [place] [address] Fax Congenital Transthoracic Report Pat.Name: AMAYAGULSHAN HERNANDEZ Pat.ID: [id number] .Date: 05/21/2022 Refer.MD: NUNO GALLEGOS Exam Time: 2:09:00 PM Study Type:Congenital TTE Height: 172cm Weight: 103.5kg BSA: 2.16 m2 Age: 5 2000,21Y Sex: MALE Sonogrphr: Molly Ruelas RDCS Pat. Stat.:Outpatient CPT - 4: 72854, 77976, 39560 Reason for Study: Coarctation of the aorta, status post repair. SUMMARY: Impression: Compared to the previous study of 12/26/2015, there is no significant change. There is no residual coarctation of the aorta. There is mild flow acceleration through the aortic isthmus to 2 m/sec; the pulsatility of the abdominal aorta is normal. Biventricular systolic function is normal. There is no pathologic valvular regurgitation. The left ventricular internal dimensions are normal and there remains mild concentric left ventricular hypertrophy. Findings: Anatomic Relationships: Abdominal situs solitus. There is levocardia. Atrial situs solitus. The AV alignment is concordant. The ventricular looping is D-looped. The VA connection is concordant. The arterial relationships are normal. Systemic Veins: Normal right SVC. Normal IVC. Pulmonary Veins: At least two pulmonary veins seen draining to left atrium. Right Atrium: The right atrial size is normal. Left Atrium: The left atrial size is normal. Atrial Septum: Intact atrial septum. Left to right atrial shunt, none. Tricuspid Valve: The tricuspid valve is structurally normal. There is no stenosis. There is trivial regurgitation present. Mitral Valve: The mitral valve is structurally normal. There is no stenosis. There is no regurgitation present. Right Ventricle: The cavity size is normal. The wall thickness is normal. The systolic function is normal. RV Outflow Tract: The outflow tract is normal. Left Ventricle: The cavity size is normal. The wall thickness is mildly increased. The systolic function is normal. LV Outflow Tract: The outflow tract is normal. Ventricular Septum: The septal motion is normal. There is no defect with no shunting. Pulmonary Valve: The pulmonic valve is structurally normal. There is no stenosis. There is trivial regurgitation present. Aortic Valve: The aortic valve is structurally normal. There is no stenosis. There is no regurgitation present. Pulmonary Artery: The MPA is normal. The LPA is normal. The RPA is normal. Aorta: The aortic root is normal. The aortic arch is patent, s/p coarctation repair, without significant residual arch obstruction. The arch sidedness is not evaluated. PDA: No PDA with no shunting. Coronary Arteries: Not evaluated. Pericardium: No pericardial effusion. MEASUREMENTS: 2D Aortic Valve AV janie 19.1 mm (zsc -1.9) Aorta AAo 27.83 mm (zsc 0) MMODE Ventricles LVIDd 54.81 mm (zsc 0.2) LVPWs 21.08 mm (zsc 2.4) LVIDs 30.81 mm (zsc -1) LV%fs 43.79 % (zsc 2.2) IVSd 11.35 mm (zsc 0.4) LV EF 74.46 % IVSs 17.19 mm (zsc 1.4) LV Mass 265.86 g (zsc 0.8) LVPWd 12.32 mm (zsc 1.7) DOPPLER Aorta DscAopkVel 2 m/s DscAopkPG 16.01 mmHg Signed 05/21/2022 02:49 PM Robi Reina MD Robi Reina MD ECHO ORDERABLES [facility] CCW [address] [place] [address] * EKG 15-LEAD (05/21/2022 2:03 PM [employer] SUPERVISOR) Only the most recent of6 resultswithin the time period is included. Ventricular Rate 70 BPM CG MUSE Atrial Rate 70 BPM CG MUSE P-R Interval 132 ms CG MUSE QRS Duration ms 122 ms CG MUSE Q-T Interval ms 390 ms CG MUSE QTC Calculation (Bezet) 421 ms CG MUSE Calculated P [place] 32 degrees CG MUSE Calculated R [place] 64 degrees CG MUSE Calculated T [place] -14 degrees CG MUSE Interpretation EKG When compared with ECG of 26-DEC-2015 13:09,the significant change is the T waves are now inverted in the inferior leads. Normal sinus rhythm persists. Confirmed by MD Nuno, Robi ([id number]) on 05/21/2022 2:23:43 PM CG MUSE 05/21/2022 2:03 PM [employer]S SUPERVISOR 05/21/2022 2:23 PM [employer]ENIC [employer]S SUPERVISOR Robi Reina MD ECG ORDERABLES CG MUSE * IMAGING/RADIOLOGY/XRAY RESULTS ORDER (09/04/2016 3:18 AM CDT) Only the most recent of3 resultswithin the time period is included. Anatomical Region Laterality Modality Other Narrative 09/04/2016 3:18 AM CDT Ordered by an unspecified provider. Scanned Document IMAGING * CMV PCR (08/31/2016 6:50 AM CDT) [facility] Cytomegalovirus Detection PCR Negative Negative 09/03/2016 10:07 PM CDT [facility] ([facility]) Comment: No Cytomegalovirus DNA Detected. This test was developed and its performance characteristics determined by [facility]. It has not been cleared or approved by the Food and Drug Administration. The FDA has determined that such clearance or approval is not necessary. Blood BLOOD SPECIMEN / Unknown Lab Venipuncture / Unknown 08/31/2016 6:50 AM CDT 08/31/2016 7:17 AM CDT Narrative [facility] ([facility]) - 09/03/2016 10:07 PM CDT Performed at: [facility] Lab[address] [id number] Sports Photographer: Doug Hermosillo MD, Phone: [phone] Liz Betancur MD LAB - BODY FLUID ORD ERABLES [facility] ([facility]) [address] [place] [address] * (ABNORMAL) DIFFERENTIAL MANUAL (08/31/2016 6:50 AM CDT) Only the most recent of2 resultswithin the time period is included. WBC Auto 9.1 x10E9/L 08/31/2016 7:57 AM T [facility] WBC Corrected 4.5 - 14.5 x10E9/L 08/31/2016 7:57 AM [facility] nRBC /100 WBC 08/31/2016 7:57 AM [facility] Neutrophil % Manual 24 24 - 66 % 08/31/2016 7:57 AM [facility] Lymphocytes % Manual 41 22 - 61 % 08/31/2016 7:57 AM [facility] Monocytes % Manual 6 3 - 15 % 08/31/2016 7:57 AM [facility] Eosinophils % Manual 1 0 - 10 % 08/31/2016 7:57 AM [facility] Atypical Lymphocyte % Manual 25(H) <=0 % 08/31/2016 7:57 AM [facility] Band % Manual 2 % 08/31/2016 7:57 AM [facility] Myelocytes % Manual 1(H) <=0 % 08/31/2016 7:57 AM [facility] Cells Counted 100 # cells 08/31/2016 7:57 AM [facility] Platelet Estimation Adequate platelets Normal, Adequate platelets 08/31/2016 7:57 AM [facility] WBC Morph Normal 08/31/2016 7:57 AM [facility] Anisocytosis 1+(A) None 08/31/2016 7:57 AM [facility] Poikilocytosis 1+(A) None 08/31/2016 7:57 AM [facility] Blood BLOOD SPECIMEN / Unknown Lab Venipuncture / Unknown 08/31/2016 6:50 AM CDT 08/31/2016 6:56 AM CDT Liz Betancur MD LAB - HEMATOLOGY ORD ERABLES [facility] [address] [place] [address] * (ABNORMAL) CBC W AUTO DIFFERENTIAL (08/31/2016 6:50 AM CDT) Only the most recent of3 resultswithin the time period is included. Pathologist [facility] WBC 9.1 4.5 - 14.5 x10E9/L 08/31/2016 7:20 AM CDT [facility] WBC Corrected x10E9/L 08/31/2016 7:20 AM CDT [facility] RBC 4.17(L) 4.50 - 5.30 x10E12/L 08/31/2016 7:20 AM T [facility] Hemoglobin 13.1 13.0 - 16.0 gm/dL 08/31/2016 7:20 AM T [facility] Hematocrit 37.1 37.0 - 49.0 % 08/31/2016 7:20 AM T [facility] MCV 89.0 78.0 - 98.0 fl 08/31/2016 7:20 AM T [facility] MCH 31.4 25.0 - 35.0 pg 08/31/2016 7:20 AM T [facility] MCHC 35.3 31.0 - 37.0 gm/dL 08/31/2016 7:20 AM T [facility] Platelet Count 120 100 - 400 x10E9/L 08/31/2016 7:20 AM T [facility] RDW-CV 12.5 11.5 - 14.0 % 08/31/2016 7:20 AM T [facility] MPV 11.1(H) 6.0 - 9.5 fl 08/31/2016 7:20 AM [facility] nRBC Auto 0 /100 WBC 08/31/2016 7:20 AM [facility] Blood BLOOD SPECIMEN / Unknown Lab Venipuncture / Unknown 08/31/2016 6:50 AM CDT 08/31/2016 6:56 AM CDT Liz Betancur MD LAB - HEMATOLOGY ORD ERABLES Performing Organization Address City/State/[facility] Co de Phone Number [facility] [address] [place] [address] * (ABNORMAL) COMPREHENSIVE METABOLIC PANEL (08/31/2016 6:50 AM CDT) Only the most recent of3 resultswithin the time period is included. [facility] Glucose 105 70 - 105 mg/dL 08/31/2016 7:39 AM T [facility] Sodium 139 136 - 145 mmol/L 08/31/2016 7:39 AM [facility] Potassium 3.5 3.5 - 5.1 mmol/L 08/31/2016 7:39 AM [facility] Chloride 107 98 - 107 mmol/L 08/31/2016 7:39 AM [facility] CO2 22 20 - 28 mmol/L 08/31/2016 7:39 AM [facility] Calcium 8.85(L) 9.08 - 10.48 mg/dL 08/31/2016 7:39 AM [facility] Anion Gap 10 5 - 20 mmol/L 08/31/2016 7:39 AM [facility] BUN 4.9(L) 5.3 - 18.7 mg/dL 08/31/2016 7:39 AM [facility] Creatinine 0.86 0.61 - 1.07 mg/dL 08/31/2016 7:39 AM [facility] Alkaline Phosphatase 229 100 - 390 U/L 08/31/2016 7:39 AM [facility] ALT 233(H) 6 - 46 U/L 08/31/2016 7:39 AM [facility] AST 265(H) 3 - 35 U/L 08/31/2016 7:39 AM [facility] Protein Total 6.7 6.3 - 8.2 gm/dL 08/31/2016 7:39 AM [facility] Albumin 3.5 3.3 - 4.9 gm/dL 08/31/2016 7:39 AM [facility] Bilirubin Total 2.9(H) 0.3 - 1.2 mg/dL 08/31/2016 7:39 AM [facility] eGFR by MDRD mL/min/1. 73m2 08/31/2016 7:39 AM [facility] Comment: eGFR calculations are not performed for children under 18 years old. eGFR by MDRD mL/min/1. 73m2 08/31/2016 7:39 AM [facility] Comment: eGFR calculations are not performed for children under 18 years old. Blood BLOOD SPECIMEN / Unknown Lab Venipuncture / Unknown 08/31/2016 6:50 AM CDT 08/31/2016 6:56 AM T Liz Betancur MD LAB - CHEMISTRY NILAY LAGUNA Performing Organization Address City/[facility]/ZIP Co de Phone Number [facility] [address] [place] [address] * ELSIE-ABDI VIRUS PCR QUANTITATIVE WHOLE BLOOD (08/29/2016 1:04 PM CDT) [facility] Elsie-Abdi Virus DNA PCR Quantitative [id number] Negative copies/mL 09/04/2016 11:14 AM CDT [facility] ([facility]) Comment: The quantitative range of this assay is 100 to 1 million copies/mL. This test was developed and its performance characteristics determined by [facility]. It has not been cleared or approved by the Food and Drug Administration. The FDA has determined that such clearance or approval is not necessary. Elsie-Abdi PCR Quant log 10 5.079 kpt75qkfr/mL 09/04/2016 11:14 AM CDT [facility] ([facility]) Blood BLOOD SPECIMEN / Unknown Lab Venipuncture / Unknown 08/29/2016 1:04 PM CDT 08/29/2016 1:15 PM CDT Narrative [facility] ([facility]) - 09/04/2016 11:14 AM CDT Performed at: [address] [place] [id number] Sports Photographer: Doug Hermosillo MD, Phone: [phone] Moose Foley MD LAB - SEROLOGY ORDER ROXY Performing Organization Address City/[facility]/ZIP Co de Phone Number [facility] [address] [place] [address] * BRUNO DIRECT (08/29/2016 1:04 PM CDT) Pathologist [facility] Direct Bruno (JINA) Negative 08/30/2016 7:03 AM CDT [facility] LAB Blood Bank BLOOD SPECIMEN / Unknown Lab Venipuncture / Unknown 08/29/2016 1:04 PM CDT 08/29/2016 1:15 PM CDT Jorge Shelley DO LAB - BLOOD BANK ORD ERARYANN [facility] B[facility] LAB [address] [place] [address] * (ABNORMAL) BILIRUBIN DIRECT (08/29/2016 1:04 PM CDT) Pathologist [facility] Bilirubin Direct 2.11(H) 0.11 - 0.64 mg/dL 08/29/2016 1:58 PM CDT [facility] Blood BLOOD SPECIMEN / Unknown Lab Venipuncture / Unknown 08/29/2016 1:04 PM CDT 08/29/2016 1:14 PM CDT Rico Huff DO LAB - CHEMISTRY ORDE [employer] Performing Organization Address [facility]/ZIP Co de Phone Number [facility] [address] [place] [address] * HEPATITIS SCREEN ACUTE (08/29/2016 1:04 PM CDT) [facility] HAV Antibody IgM Non Reactive Non Reactive 08/31/2016 9:30 AM CDT [facility] HBsAg Non Reactive Non Reactive 08/31/2016 9:30 AM CDT [facility] HBc Antibody IgM Non Reactive Non Reactive 08/31/2016 9:30 AM T [facility] HCV Antibody Screen Non Reactive Non Reactive 08/31/2016 9:30 AM CDT [facility] HCV S/C Ratio 0.17 0.00 - 0.79 08/31/2016 9:30 AM T [facility] Comment: Gzosnc-er-rjhhbb ratio (S/CO) <0.80: Non Reactive Blood BLOOD SPECIMEN / Unknown Lab Venipuncture / Unknown 08/29/2016 1:04 PM CDT 08/29/2016 1:15 PM CDT Narrative [facility] - 08/31/2016 9:30 AM CDT Non Reactive - Antibodies to Hepatitis C virus (HCV) were not detected, result does not exclude early acute HCV infection. Non Reactive - Antibodies to Hepatitis C virus (HCV) were not detected, result does not exclude early acute HCV infection. Jorge Shelley DO LAB - CHEMISTRY ORDAdLemons Performing Organization Address [facility]/ZIP Co de Phone Number [facility] [address] [place] [address] * MYCOPLASMA PNEUMO DNA PCR (08/29/2016 12:55 PM CDT) Pathologist [facility] Mycoplasma pneumoniae PCR Negative Negative 08/31/2016 11:06 PM CDT [facility] ([facility]) Comment: No Mycoplasma pneumoniae DNA detected. This test was developed and its performance characteristics determined by [facility]. It has not been cleared or approved by the Food and Drug Administration. The FDA has determined that such clearance or approval is not necessary. Other SPECIMEN FROM NASOPHARYNGEAL STRUCTURE / Unknown 08/29/2016 12:55 PM CDT 08/29/2016 1:01 PM CDT Narrative [facility] ([facility]) - 08/31/2016 11:06 PM CDT Performed at: [facility] [id number] Sports Photographer: Doug Hermosillo MD, Phone: [phone] Jorge Shelley DO LAB - MICROBIOLOGY O RDERARYANN Performing Organization Address City/[facility] Co de Phone Number [facility] ([facility]) [address] [place] [address] * URINALYSIS MICROSCOPIC ONLY W/REFLEX CULTURE (08/29/2016 12:54 PM CDT) Pathologist [facility] RBC UA 0-2 0-2, 2-5 # /hpf 08/29/2016 1:40 PM CDT [facility] WBC UA 0-2 0-2, 2-5 # /hpf 08/29/2016 1:40 PM CDT [facility] Bacteria UA Trace None Seen, Trace 08/29/2016 1:40 PM CDT [facility] Epithelial Cell UA 0-2 0-2, 2-5 # /hpf 08/29/2016 1:40 PM CDT [facility] Mucus UA 1+ 08/29/2016 1:40 PM CDT [facility] Urine URINE SPECIMEN OBTAINED BY CLEAN CATCH PROCEDURE / Unknown 08/29/2016 12:54 PM CDT 08/29/2016 1:08 PM CDT Moose Foley MD LAB - URINALYSIS ORD ERABLES Performing Organization Address City/[facility]/ZIP Co de Phone Number [facility] [address] [place] [address] * (ABNORMAL) URINALYSIS ROUTINE W/REFLEX TO CULTURE (08/29/2016 12:54 PM CDT) Color UA Yellow Straw, Yellow, Dark Yellow 08/29/2016 1:31 PM CDT [facility] Clarity UA Clear 08/29/2016 1:31 PM T [facility] Specific [place] UA >=1.030 1.005 - 1.030 08/29/2016 1:31 PM CDT [facility] pH UA 5.5 5.0 - 8.0 pH 08/29/2016 1:31 PM T [facility] Protein UA Trace(A) Negative 08/29/2016 1:31 PM CDT [facility] Blood UA Negative Negative 08/29/2016 1:31 PM CDT [facility] Leukocyte UA Negative Negative 08/29/2016 1:31 PM CDT [facility] Nitrite UA Positive(A) Negative 08/29/2016 1:31 PM CDT [facility] Glucose UA Negative Negative 08/29/2016 1:31 PM CDT [facility] Ketone UA 2+(A) Negative 08/29/2016 1:31 PM CDT [facility] Bilirubin UA 2+(A) Negative 08/29/2016 1:31 PM T [facility] Comment:Confirmed by ictotes t Urobilinogen UA 1.0 0.1 - 1.0 EU/dL 08/29/2016 1:31 PM T [facility] Reflex Status Culture to follow 08/29/2016 1:31 PM T [facility] Urine URINE SPECIMEN OBTAINED BY CLEAN CATCH PROCEDURE / Unknown 08/29/2016 12:54 PM CDT 08/29/2016 1:08 PM CDT Moose Foley MD LAB - URINALYSIS ORD ERABLES [facility] [address] [place] [address] * CULTURE URINE (08/29/2016 12:54 PM CDT) Culture No growth (<1,000 CFU/mL) AURELIANO 08/30/2016 1:48 PM CDT [facility] Urine URINE SPECIMEN OBTAINED BY CLEAN CATCH PROCEDURE / Unknown 08/29/2016 12:54 PM CDT 08/29/2016 1:08 PM CDT Moose Foley MD LAB - MICROBIOLOGY O RDERABLES [facility] [address] [place] [address], [facility] [phone] * CT OUTSIDE CONSULTATION (08/29/2016 7:47 AM CDT) Anatomical Region Laterality Modality Computed Tomogra phy 08/29/2016 9:10 AM CDT Impressions 08/29/2016 9:27 AM CDT Hepatosplenomegaly. No CT evidence of gallbladder disease or appendicitis. The findings, conclusions and recommendations within this report do not replace the initial findings, conclusions and recommendations made at the facility where the study was performed based upon the imaging and clinical condition at that time. Comparison with the prior report and clinical history is necessary. The provided images may or may not represent the [place] source data set and thus may contain changes which may lower the sensitivity in the second opinion interpretation. Dictated by Klever Gonsales MD (residential advisor) I, Gale Dewitt, have personally reviewed the images and I agree with this report. Narrative 08/29/2016 9:27 AM CDT EXAMINATION: RADIOLOGY CONSULTATION ON OUTSIDE IMAGING STUDY STUDY INITIALLY PERFORMED: On 08/28/[address] [facility]. TYPE OF STUDY: A total of 307 CT images of the abdomen and pelvis are provided at the time of this interpretation. The study consists of images obtained without contrast material. The protocol was adequate to answer the clinical question. The outside final report was not provided at the time of this second opinion. DATE OF CONSULTATION: 08/29/2016 REASON FOR CONSULTATION: Rule out appendicitis or gallbladder disease COMPARISON: No prior study is available for comparison FINDINGS: The lung bases are clear without focal consolidation or pleural effusion. The imaged portion of the heart is normal without pericardial effusion. The liver is enlarged measuring 19.7 cm in the craniocaudal dimension. No focal intrahepatic lesion is seen on this limited noncontrast exam. The intrahepatic and extrahepatic bile ducts are nondilated. The spleen is enlarged and measures 14.9 x 8.5 x 6.7 cm. No focal lesion is seen within the spleen on this noncontrast exam. The gallbladder, pancreas, and adrenal glands appear normal on this noncontrast-enhanced examination. The nonenhanced kidneys appear normal without focal lesion or hydronephrosis. The small and large bowel are normal in caliber without evidence of wall thickening or obstruction. The appendix appears normal without evidence of appendicolith or surrounding inflammatory changes. There is no evidence of lymphadenopathy. No free air or free fluid is identified. The bladder appears normal. No free pelvic fluid is identified. The nonenhanced abdominal aorta is normal in course and caliber. Other than L4 pars interarticularis defects bilaterally, the visible osseous structures are normal. Procedure Note Gale Dewitt MD - 08/29/2016 EXAMINATION: RADIOLOGY CONSULTATION ON OUTSIDE IMAGING STUDY STUDY INITIALLY PERFORMED: On 08/28/[address] [facility]. TYPE OF STUDY: A total of 307 CT images of the abdomen and pelvis are provided at the time of this interpretation. The study consists of images obtained without contrast material. The protocol was adequate to answer the clinical question. The outside final report was not provided at the time of this second opinion. DATE OF CONSULTATION: 08/29/2016 REASON FOR CONSULTATION: Rule out appendicitis or gallbladder disease COMPARISON: No prior study is available for comparison FINDINGS: The lung bases are clear without focal consolidation or pleural effusion. The imaged portion of the heart is normal without pericardial effusion. The liver is enlarged measuring 19.7 cm in the craniocaudal dimension. No focal intrahepatic lesion is seen on this limited noncontrast exam. The intrahepatic and extrahepatic bile ducts are nondilated. The spleen is enlarged and measures 14.9 x 8.5 x 6.7 cm. No focal lesion is seen within the spleen on this noncontrast exam. The gallbladder, pancreas, and adrenal glands appear normal on this noncontrast-enhanced examination. The nonenhanced kidneys appear normal without focal lesion or hydronephrosis. The small and large bowel are normal in caliber without evidence of wall thickening or obstruction. The appendix appears normal without evidence of appendicolith or surrounding inflammatory changes. There is no evidence of lymphadenopathy. No free air or free fluid is identified. The bladder appears normal. No free pelvic fluid is identified. The nonenhanced abdominal aorta is normal in course and caliber. Other than L4 pars interarticularis defects bilaterally, the visible osseous structures are normal. IMPRESSION Hepatosplenomegaly. No CT evidence of gallbladder disease or appendicitis. The findings, conclusions and recommendations within this report do not replace the initial findings, conclusions and recommendations made at the facility where the study was performed based upon the imaging and clinical condition at that time. Comparison with the prior report and clinical history is necessary. The provided images may or may not represent the [place] source data set and thus may contain changes which may lower the sensitivity in the second opinion interpretation. Dictated by Klever Gonsales MD (residential advisor) I, Gale Dewitt, have personally reviewed the images and I agree with this report. Liz Betancur MD CT ORDERABLES * LAB RESULTS ORDER (03/23/2014 8:39 PM SCENIC ARTS SUPERVISOR) Narrative 03/23/2014 8:39 PM SCENIC ARTS SUPERVISOR Ordered by an unspecified provider. Scanned Document LAB - THERAPEUTIC DR CARTER MONITORING ORDERABLES * XR LUMBAR SPINE 4+ VW (08/11/2012 1:58 PM CDT) Anatomical Region Laterality Modality Spine Radiographic Cata ging 08/11/2012 1:59 PM CDT Impressions 08/11/2012 3:40 PM CDT Spondylolysis at L4 as above. Grade 1 anterolisthesis of L4 on L5, new. D: Se Mckoy MD Narrative 08/11/2012 3:40 PM CDT Examination: Lumbar spine, 4 views Date: 08/11/2012 History: L4 spondylolysis Comparison: 05/12/2012 Findings: On the lateral film, there is a pars defect at L4. Based on these films, it is difficult to determine whether it is unilateral or bilateral. Vertebral body heights and disc spaces are normal. There is grade 1 anterolisthesis of L4 on L5 on the neutral and flexion lateral views, new compared to prior. The previously seen minimal retrolisthesis of L5 on S1 appears resolved. Procedure Note Parul Canela MD - 08/11/2012 Examination: Lumbar spine, 4 views Date: 08/11/2012 History: L4 spondylolysis Comparison: 05/12/2012 Findings: On the lateral film, there is a pars defect at L4. Based on these films, it is difficult to determine whether it is unilateral or bilateral. Vertebral body heights and disc spaces are normal. There is grade 1 anterolisthesis of L4 on L5 on the neutral and flexion lateral views, new compared to prior. The previously seen minimal retrolisthesis of L5 on S1 appears resolved. IMPRESSION Spondylolysis at L4 as above. Grade 1 anterolisthesis of L4 on L5, new. D: Se Mckoy MD Shannon Arciniega MD DIAGNOSTIC IMAGING O RDERABLES * XR LUMBAR SPINE 2 OR 3 VW (05/12/2012 2:03 PM SCENIC ARTS SUPERVISOR) Anatomical Region Laterality Modality Spine Radiographic Cata ging 05/12/2012 2:40 PM SCENIC ARTS SUPERVISOR Impressions 05/12/2012 2:40 PM SCENIC ARTS SUPERVISOR Impression colon Bilateral pars defects at L4. Minimal retrolisthesis of L5 on S1. Narrative 05/12/2012 2:40 PM SCENIC ARTS SUPERVISOR Lumbar spine 3 views Vertebral body heights and disc spaces are normal. There is minimal retrolisthesis of L5 on S1. Pars defects are present at L4 with normal alignment at L4-L5. Procedure Note Elham Jaramillo MD - 05/12/2012 Lumbar spine 3 views Vertebral body heights and disc spaces are normal. There is minimal retrolisthesis of L5 on S1. Pars defects are present at L4 with normal alignment at L4-L5. IMPRESSION Impression colon Bilateral pars defects at L4. Minimal retrolisthesis of L5 on S1. Elijah Riggins MD DIAGNOSTIC IMAGING O RDERABLES * PATHOLOGY/CYTOLOGY REPORT ORDER (09/09/2009 10:19 AM CDT) Narrative 09/09/2009 10:19 AM CDT Ordered by an unspecified provider. Transcriptions Document, Scanned - 09/06/2009 12:00 AM CDT Scanned Document LAB - PATHOLOGY/CYTO LOGY ORDERABLES * GROSS + MICRO EXAM (09/06/2009 2:25 PM CDT) Only the most recent of2 resultswithin the time period is included. [facility] Clinical History [facility] Comment: The patient is a 8-year-old boy with bilateral retractable testicles who underwent bilateral inguinal hernia repair and bilateral orchiopexy. Gross Description [facility] Comment: The specimens are received fixed in formalin in two containers for gross and microscopic examination. Both containers are labeled with the patient's name, Gulshan Santos. Specimen A, left inguinal hernia sac, consists of two membranous portions of glistening pink-monreal soft tissue with an aggregate measurement of 1.5 x 1.0 x 0.3 cm. The specimen is submitted in toto as A1 . Specimen B, right inguinal hernia sac, consists of a 1.5 x 0.6 x 0.3 cm membranous portion of glistening pink-monreal soft tissue submitted in toto as B1 . (CT/lw) Microscopic Examination [facility] Comment: A) 1 H+E, B) 1 H+E Sections from the left inguinal hernia sac show benign fibromuscular and adipose connective tissue. Sections from the right inguinal hernia sac show fragments of benign muscular and adipose connective tissue. (REGGIE/lw) Diagnosis [facility] Comment: DIAGNOSIS: A) INGUINAL HERNIA, LEFT, HERNIA REPAIR: -BENIGN CONNECTIVE TISSUE CONSISTENT WITH HERNIA SAC. B) INGUINAL HERNIA, RIGHT, HERNIA REPAIR: -BENIGN CONNECTIVE TISSUE CONSISTENT WITH HERNIA SAC. This case has been personally reviewed and interpreted by the attending (teaching) pathologist. Director Of Retail Merchandising Cali Ramirez, [facility] Pathologist Francesca Michelle M.D. [facility] Electronically Signed By FRANCESCA MICHELLE, [facility] HERNIA SAC / Unknown 09/06/2009 2:25 PM CDT 09/06/2009 3:11 PM CDT Jorge Monroy MD LAB - PATHOLOGY/CYT OLOGY ORDERABLES [facility] * GROSS EXAM PATHOLOGY (1999 11:30 AM CDT) Result CASE NUMBER [id number] [facility] LAB PATH REPORT Comment: ORDERING PHYSICIAN KLEVER ESPINOZA SPECIMEN TYPE Foreskin CLINICAL HISTORY The patient is a 2-month-old boy with phimosis. GROSS DESCRIPTION The specimen labeled with the patient's name and foreskin is received fresh for gross examination only and consists of two irregular shaped fragments of wrinkled pink-monreal skin and subcutaneous tissue with an aggregate measurement of 1.7 x 1.5 x 0.5 cm. No sections are taken. (CT/kb) GROSS DIAGNOSIS GROSS DIAGNOSIS FORESKIN. PATHOLOGIST Mone [place] M.D. ELECTRONICALLY [place] MISCELLANEOUS SAMPLES / Unknown 1999 11:30 AM CDT 1999 1:10 PM CDT Historical Provider LAB - PATHOLOGY/C YTOLOGY ORDERABLES [facility] LAB PATH REPORT Care Teams Aircraft Detail Draftsperson Relationship Specialty Start Date End Date Silvia Sanders, PARoxC [address] [facility] [id number] PCP - General 05/21/22
--- OUTSIDE RECORDS SUMMARY | 2024-07-15 13:13 | XMS_ITS | Continuity of Care Document ---
Author Organization [facility] Address [address] [place] [address] Phone Care Team Providers Care Margin Analyst Name Role Phone No Information Unavailable Unavailable Medications Medication Instructions Dosage Effective Dates (start - stop) Status Comments Vicodin ES 7.5 mg-750 mg Tab dos 11/21/07 - Active Procedures Procedure Date X-ray exam of hand, 3+ views Remove superficial support implant Remove superficial support implant X-ray exam of hand, 3+ views X-ray exam of hand, 3+ views Application of forearm cast Cast Supplies,Short Arm Cast,Fibeglass,P ediatric X-ray exam of hand, 3+ views Application of forearm cast Cast Supplies,Short Arm Cast,Fibeglass,P ediatric Office/outpatient visit,new, mod 2007 Clsd trtmnt mtcrpl Fx sng w/o manip Percu skltl fxtn mtcrpl Fx, ea bone Percu skltl fxtn mtcrpl Fx, ea bone Advance Directives Directive Yes / No Effective Date File Name No Information Encounters Encounter Description Practice Location Reason(s) For Visit Diagnoses Date Provider Providers Copied on Encounter [facility], [address] [place] [address], [id number], tel:[phone] No Information Sep-1 2-200 8 No Information [facility], [address] [place] [address], [id number], tel:[phone] [facility] No Information Sep-1 2-200 8 Erthall Pablo. [address] [place], [place], [id number], . tel:[phone] Referring Provider: Edward Patel, [address], [place], [address] . tel:[phone] [facility], [address] [place] [address], [id number], tel:[phone] [facility] No Information Dec-2 9-200 8 Young Ti[address] [place], [place], [id number], . tel:[phone] [facility], [address] [place] [address], [id number], tel:[phone] [facility] No Information Dec-2 5-200 8 Young Ti. [address] [place] [address], [id number], [place]. tel:[phone] Referring Provider: Edward Patel, [address], [place], [address] . tel:[phone] [facility], [address] [place] [address], [id number], tel:[phone] [facility] No Information Aug-0 8-200 8 Erthall Pablo. [address] [place] [address], [id number], . tel:[phone] Referring Provider: Edward Patel, [address], [place], [address] . tel:[phone] [facility], [address] [place] [address], [id number], tel:[phone] [facility] No Information Nov-2 4-200 8 Erthall Pablo. [address] [place] [address], [id number], [place]. tel:[phone] Referring Provider: Edward Patel, [facility] [address], [place], [address] . tel:[phone] [facility], [address] [place] [address], [id number], tel:[phone] [facility] No Information 8 Kg Luke. [address] [place] [address], [id number], . tel:[phone] Referring Provider: Edward Patel, [address] [place], [place] [address], [address] . tel:[phone] Office/outpat ient visit,[facility], [facility], [address] [place] [address], [id number], tel:[phone] [facility] No Information 8 Kg Luke. [address] [place] [address], [id number], . tel:[phone] Referring Provider: Edward Patel, [address] [place], [place] [address], [address] . tel:[phone] [facility], [address] [place] [address], [id number], tel:[phone] [facility] No Information 8 Kg Luke. [address] [place] [address], [id number], . tel:[phone] Family History Family Member Type Diagnosis Age At Onset No Information Payers Payer name Insurance type Covered green party ID Authorpatriciaa tihome(s) [employer] [id number] [facility] [id number] Social History Type Description Quantity Date Captured Comments Sex Male Smoking Status No Information Chief Complaint And Reason For Visit No Information Reason For Referral Reason For Referral No Information History Of Present Illness Encounter Date Complaint History Of Prese nt Illness No Information Functional Status Date Functional Assessmen t No Information Instructions Date Instruction Additional Infor mation No Information Assessments Type Assessment Date No Information Patient Care Teams Name Effective Dates (start - stop) Status Members No Information
--- OUTSIDE RECORDS SUMMARY | 2024-07-15 13:13 | XMS_ITS | Encounter Summary ---
Author Organization [facility] - [facility] Address [address] [place] [address] Care Team Providers Care Detective Precinct Name Role Phone Caty Danielson GRAIN CLEANER Primary Care Provider [phone] Encounter Details Date Type Department Care Team (Late st Contact Info) Description 07/26/2021 Prep for Procedure [employer] [address] Flaco Gallegos, Social History Tobacco Use Types Packs/Day Years Used Date Smoking Tobacco: Never Assessed Sex and Gender Information Value Date Recorded Sex Assigned at Not on file 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 No / Unsure 07/27/2021 4:18 PM CDT documented as of this encounter Plan of Treatment Not on file documented as of this encounter Visit Diagnoses Diagnosis Nausea and vomiting- Primary Nausea with vomiting documented in this encounter Additional Health Concerns Infection Onset Date Last Indicated Resolved Time COVID-19 Rule Out 07/31/2021 07/31/2021 07/31/2021 12:15 PM CDT COVID-19 Rule Out 07/16/2022 07/16/2022 07/18/2022 12:47 PM CDT documented as of this encounter Care Teams Detective Precinct Relationship Specialty Start Date End Date Caty Danielson NP [address] [place] [address] PCP - General Nurse Practitioner Family 06/23/21 documented as of this encounter
--- OUTSIDE RECORDS SUMMARY | 2024-07-15 13:13 | XMS_ITS | Referral Summary ---
Author Organization [facility] Address [address] [place] [address] Care Team Providers Care Kilnman Name Role Phone Silvia Sanders PA-C Primary Care Provider Source Comments [facility],non-owned Affiliates and Associated Physician Practices is amultiple site organization consisting of ambulatory clinics and hospital sitesin [place], [place], [place] and [place]. This disclosure is being madepursuant to the Care Everywhere program and may not contain all information available regarding this patient. Last updated 18.[facility] Allergies Active Allergy Reactions Criticality Noted Date [...] PM CDT): Assessment: Tonny De La Vega Amaya is a 15 y.o. male who presents [...] Plan (08/31/2016 12:46 PM CDT): Assessment: Tonny Santos is a 15 y.o. male who presents [...] Plan (08/30/2016 11:06 AM CDT): Assessment: Tonny Santos is a 15 y.o. male who presents [...] Plan (08/30/2016 10:57 AM CDT): Assessment: Tonny Santos is a 15 y.o. male who presents [...] Plan (08/29/2016 4:20 PM CDT): Assessment: Tonny Santos is a 15 y.o. male who presents [...] Plan (08/29/2016 6:01 AM CDT): Assessment: Tonny Santos is a 15 y.o. male who presents with RUQ. Patient uncooperative this AM after long night in OSH and transfer to [facility]. With patient age would have concern for viral hepatitis or mononucleosis. Cholelithiasis or cholecystitis less likely with normal outside CT/US, however will have radiology review CT/US at [facility]. Cholestasis remains a possibility however, less likely given presentation at OSH. Will have narrow differential based on history of patient. Plan: - Admit to [place] Team: Dr. Shelley - Advance diet as tolerated to regular - Vitals Q8H - D5 1/2 NS @ 125 ml/hr, will decrease as tolerates PO - I/Os - CT/US outside consult - Consider mono and viral hepatitis testing - Repeat CBC, CMP, and Dbili at 1300 Lumbosacral spondylosis without myelopathy 03/24 Coarctation of aorta 05/22/2011 Assessment & Plan (05/21/2022 4:15 PM CLINICAL ADMINISTRATIVE COORDINATOR): IMPRESSION: Tonny is a 21-year-old young man [...] which can be done electively, to exclude penitentiary complications such as an aneurysm at the [...] plan on seeing him back in my [place] satellite clinic in six months' time at [...] risk. Assessment & Plan (03/31/2014 8:44 AM CLINICAL ADMINISTRATIVE COORDINATOR): IMPRESSION: Tonny is an 13-year-old young man [...] plan on seeing him back in my [facility] clinic in six months' time at which [...] plan on seeing him back in my [facility] in one years' time at which point [...] Comments Blood Pressure 119/68 06/20/2022 8:45 AM CLINICAL ADMINISTRATIVE COORDINATOR Pulse 67 06/20/2022 8:45 AM CLINICAL ADMINISTRATIVE COORDINATOR Temperature 36.8 C (98.3 F) 06/20/2022 7:26 AM CLINICAL ADMINISTRATIVE COORDINATOR Respiratory Rate 20 06/20/2022 7:26 AM CLINICAL ADMINISTRATIVE COORDINATOR Oxygen Saturation 100% 06/20/2022 8:45 AM CLINICAL ADMINISTRATIVE COORDINATOR Inhaled Oxygen Concentration 40% 09/06/2009 3 :45 PM CDT Weight 105.4 kg (232 lb 5.8 oz) 06/20/2022 7:07 AM CLINICAL ADMINISTRATIVE COORDINATOR Height 172.7 cm (5' 7.99 ) 06/20/2022 7:07 AM CS T Body Mass Index 35.34 06/20/2022 7:07 AM CLINICAL ADMINISTRATIVE COORDINATOR Functional Status Functional Status Response Date of Assess ment Is person deaf or have serious hearing difficult y? No 08/29/2016 Is person blind or have serious difficulty seein g? No 08/29/2016 Does person have serious dif ficulty walking/climbing stairs? No 08/29/2016 Does person have difficulty dressing/bathing? No 08/29/2016 Does person have difficulty doing errands alone? No 08/29/2016 Cognitive Status Response Date of Assessm ent Does person have difficulty concentrating/remembering/making decisions? No 08/29/2016 Plan of Treatment Not on file Procedures Procedure Name Priority Date/Time Associated Diagnosis Comments HEPATITIS SCREEN ACUTE Routine 08/29/2016 1:04 PM CDT from Last 3 Months or Most Recently Relevant to Health Maintenance Results * HEPATITIS SCREEN ACUTE (08/29/2016 1:04 PM CDT) HAV Antibody IgM Non Reactive Non Reactive 08/31/2016 9:30 AM CDT [facility] HBsAg Non Reactive Non Reactive 08/31/2016 9:30 AM CDT [facility] HBc Antibody IgM Non Reactive Non Reactive 08/31/2016 9:30 AM CDT [facility] HCV Antibody Screen Non Reactive Non Reactive 08/31/2016 9:30 AM CDT [facility] HCV S/C Ratio 0.17 0.00 - 0.79 08/31/2016 9:30 AM CDT [facility] Comment: Nkhjnj-gy-jmcijd ratio (S/CO) <0.80: Non Reactive Blood BLOOD SPECIMEN / Unknown Lab Venipuncture / Unknown 08/29/2016 1:04 PM CDT 08/29/2016 1:15 PM CDT Narrative [facility] - 08/31/2016 9:30 AM CDT Non Reactive - Antibodies to Hepatitis C virus (HCV) were not detected, result does not exclude early acute HCV infection. Non Reactive - Antibodies to Hepatitis C virus (HCV) were not detected, result does not exclude early acute HCV infection. Jorge Shelley DO LAB - CHEMISTRY [place] [facility] [address] [place] [address] from Last 3 Months or Most Recently Relevant to Health Maintenance Advance Directives * Full Code (Latest Code Status on File) Date Activated Date Inactivated Comments 08/29/2016 5:51 AM 08/31/2016 5:31 PM Care Teams Kilnman Relationship Specialty Start Date End Date Silvia Sanders PARoxC [address] [place] [id number] PCP - General 05/21/22
== END 2024-07-15 11:22 | disposition home or self-care (01) ==
LOC: ANHLAB 11:22
PROVIDERS: PCP Family Medicine; Visit Provider Student in an Organized Health Care Education/Training Program
DX: E03.9 Hypothyroidism, unspecified (principal); R53.83 Other fatigue
CPT/HCPCS: 36415; 80053; 84439; 84443; 85025

== ENCOUNTER 2024-08-26 19:05 | Emergency (ER) | payer SELFPAY ==
--- NOTE | ~2024-08-26 | CT_ITS ---
CLINICAL INDICATION: Bilateral groin pain COMPARISON: 10/28/2021. TECHNIQUE: Multiple contiguous axial images of the abdomen and pelvis were performed following the ad ministration of with 100 mL Omnipaque-350 intravenous contrast The dose-length product (DLP) was 559.94 mGy-cm. Automated exposure control and iterative reconstruction technique were employed. FINDINGS/OBSERVATIONS: Visualized lower thorax: The bilateral lung bases are clear. The heart is of normal size, without pericardial effusion. Small hiatal hernia is present. Liver: The liver demonstrates homogeneous enhancement and is enlarged measuring 19 cm in longitudinal dimens ion. Gallbladder and biliary system: The gallbladder is only minimally distended, and otherwise unremarkable. Pancreas: The pancreas enhances homogeneously without ductal dilatation. Spleen: The spleen enhances homogeneously and is not enlarged. Kidneys: The bilateral kidneys enhance symmetrically without hydronephrosis or renal calculi. Adrenal glands: Unremarkable. Gastrointestinal tract: Fecal stasis within the colon. Appendix: The air-filled appendix is of normal caliber (axial series, images 121 through 131). Vasculature: Unremarkable. Lymph nodes: No pathologically enlarged or morphologically suspicious lymph nodes within the retroperitoneum or at the root of the mesentery. Pelvic structures: The bladder is only minimally distended, and otherwise unremarkable. The prostate gland is not enlarged. Body wall and musculoskeletal: No inguinal hernias are present. No umbilical hernias are present No significant degenerative disease within the lower thoracic or lumbosacral spine. IMPRESSION: No acute findings within the abdomen or pelvis, as detailed above. Reviewed, dictated and finalized at location A.
--- OUTSIDE RECORDS SUMMARY | 2024-08-26 19:07 | XMS_ITS | Continuity of Care Document ---
Author Organization [facility] Address [address] [place] [address] Phone Care Team Providers Care Film Printer Name Role Phone No Information Unavailable Unavailable [...] Diagnoses Date Provider Providers Copied on Encounter [facility], [address] [place] [address], [id number], tel:[phone] No Information Sep-1 2-200 8 No Information [facility], [address] [place] [address], [id number], tel:[phone] [facility] No Information Sep-1 2-200 8 Erthall Pablo. [address] [place], [place], [id number], . tel:[phone] Referring Provider: Edward Patel, [address], [place], [address] . tel:[phone] [facility], [address] [place] [address], [id number], tel:[phone] [facility] No Information Dec-2 9-200 8 Young Ti. [address] [place], [place], [id number], . tel:[phone] [facility], [address] [place] [address], [id number], tel:[phone] [facility] No Information Dec-2 5-200 8 Young Ti. [address] [place] [address], [id number], [place]. tel:[phone] Referring Provider: Edward Patel, [address], [place], [address] . tel:[phone] [facility], [address] [place] [address], [id number], tel:[phone] [facility] No Information Aug-0 8-200 8 Erthall Pablo. [address] [place] [address], [id number], . tel:[phone] Referring Provider: Edward Patel, [address], [place], [address] . tel:[phone] [facility], [address] [place] [address], [id number], tel:[phone] [facility] No Information Nov-2 4-200 8 Erthall Pablo. [address] [place] [address], [id number], [place]. tel:[phone] Referring Provider: Edward Patel, [facility] [address], [place], [address] . tel:[phone] [facility], [address] [place] [address], [id number], tel:[phone] [facility] No Information 8 Kg Luke. [address] [place] [address], [id number], . tel:[phone] Referring Provider: Edward Patel, [address] [place], [place] [address], [address] . tel:[phone] Office/outpat ient visit,[facility], [facility], [address] [place] [address], [id number], tel:[phone] [facility] No Information 8 Kg Luke. [address] [place] [address], [id number], . tel:[phone] Referring Provider: Edward Patel, [address] [place], [place] [address], [address] . tel:[phone] [facility], [address] [place] [address], [id number], tel:[phone] [facility] No Information 8 Kg Luke. [address] [place] [address], [id number], . tel:[phone] Family History Family Member Type Diagnosis Age At Onset No Information Payers Payer name Insurance type Covered alliance party ID Authorpatriciaa tihome(s) Healthlink [id number] [facility] [id number] Social History Type Description Quantity Date Captured [...]
--- OUTSIDE RECORDS SUMMARY | 2024-08-26 19:07 | XMS_ITS | Encounter Summary ---
Author Organization [facility] Address [address] [place] [address] Care Team Providers Care Supervisor Taping Name Role Phone Caty Danielson STERILIZER OPERATOR Primary Care Provider [phone] Encounter Details Date Type Department Care Team (Late st Contact Info) Description 07/26/2021 Prep for Procedure [facility] [place] [address] Flaco Gallegos, Social History Tobacco Use Types Packs/Day Years Used Date Smoking Tobacco: Never Assessed Sex and Gender Information Value Date Recorded Sex Assigned at Not on file 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
--- OUTSIDE RECORDS SUMMARY | 2024-08-26 19:07 | XMS_ITS | Clinical Summary ---
Author Organization [facility] Address [address] [facility] [address] Care Team Providers Care Life Skills Coordinator Volunteer Name Role Phone Silvia Sanders PA-C Primary Care Provider Source Comments [facility],non-owned Affiliates and Associated Physician Practices is amultiple site organization consisting of ambulatory clinics and hospital sitesin [place], [place], [place] and [place]. This disclosure is being madepursuant to the Care Everywhere program and may not contain all information available regarding this patient. Last updated 18.[facility] Allergies Active Allergy Reactions Criticality Noted Date Comments Amoxicillin Rash High 05/21/2022 Cefaclor Rash 09/05/2009 Lisinopril Elevated Blood Pressure High 05/21/2022 Medications * Be aware that medications may not be up to date on this document. Alwaysverify current medications with the patient. levothyroxine (Synthroid) 75 MCG tablet Take 1 [...] Plan (08/31/2016 1:23 PM CDT): Assessment: Tonny Yolette Conde is a 15 y.o. male who [...] long night in OSH and transfer to [facility]. With patient age would have concern for viral hepatitis or mononucleosis. Cholelithiasis or cholecystitis less likely with normal outside CT/US, however will have radiology review CT/US at [facility]. Cholestasis remains a possibility however, less likely given presentation at OSH. Will have narrow differential based on history of patient. Plan: - Admit to [place] Team: Dr. Shelley - Advance diet as tolerated to regular - Vitals Q8H - D5 1/2 NS @ 125 ml/hr, will decrease as tolerates PO - I/Os - CT/US outside consult - Consider mono and viral hepatitis testing - Repeat CBC, CMP, and Dbili at 1300 Lumbosacral spondylosis without myelopathy 03/24 Coarctation of aorta 05/22/2011 Assessment & Plan (05/21/2022 4:15 PM SHAKE OUT WORKER): IMPRESSION: Tonny is a 21-year-old young man [...] which can be done electively, to exclude nursing home complications such as an aneurysm at the [...] plan on seeing him back in my [facility] clinic in six months' time at which [...] risk. Assessment & Plan (03/31/2014 8:44 AM SHAKE OUT WORKER): IMPRESSION: Tonny is an 13-year-old young man [...] plan on seeing him back in my [facility] clinic in six months' time at which [...] plan on seeing him back in my [facility] clinic in one years' time at which point [...] at Not on file Legal Sex Male 5:39 AM SHAKE OUT WORKER Gender Identity Not on file Sexual Orientation Not on file Last Filed Vital Signs Vital Sign Reading Time Taken Comments Blood Pressure 119/68 06/20/2022 8:45 AM SHAKE OUT WORKER Pulse 67 06/20/2022 8:45 AM SHAKE OUT WORKER Temperature 36.8 C (98.3 F) 06/20/2022 7:26 AM SHAKE OUT WORKER Respiratory Rate 20 06/20/2022 7:26 AM SHAKE OUT WORKER Oxygen Saturation 100% 06/20/2022 8:45 AM SHAKE OUT WORKER Inhaled Oxygen Concentration 40% 09/06/2009 3 :45 PM CDT Weight 105.4 kg (232 lb 5.8 oz) 06/20/2022 7:07 AM SHAKE OUT WORKER Height 172.7 cm (5' 7.99 ) 06/20/2022 7:07 AM CS T Body Mass Index 35.34 06/20/2022 7:07 AM SHAKE OUT WORKER Plan of Treatment Health Maintenance Due Date Last Done Comments HIV SCREENING 09/26/2014 HPV VACCINE (1 - Male 3-dose series) 09/26/2014 DTAP/TDAP/TD VACCINES (1 - Tdap) 09/26/2018 HEPATITIS B VACCINE (1 of 3 - 19+ 3-dose series) 09/26/2018 COVID-19 VACCINE (1 - 2023-2 5 season) 2024 DEPRESSION SCREENING 05/06/2024 INFLUENZA VACCINE (Season Ended) 2025 06/26/2016, 02/02/2015 ZOSTER VACCINE (1 of 2) 09/26/2049 HEPATITIS [...] Reactive Non Reactive 08/31/2016 9:30 AM CDT [facility] HBsAg Non Reactive Non Reactive 08/31/2016 9:30 AM CDT [facility] HBc Antibody IgM Non Reactive Non Reactive 08/31/2016 9:30 AM CDT [facility] HCV Antibody Screen Non Reactive Non Reactive 08/31/2016 9:30 AM CDT [facility] HCV S/C Ratio 0.17 0.00 - 0.79 08/31/2016 9:30 AM CDT [facility] Comment: Xttngf-ac-bgxoll ratio (S/CO) <0.80: Non Reactive Blood BLOOD SPECIMEN / Unknown Lab Venipuncture / Unknown 08/29/2016 1:04 PM CDT 08/29/2016 1:15 PM CDT Narrative [facility] - 08/31/2016 9:30 AM CDT Non Reactive - Antibodies to Hepatitis C virus (HCV) were not detected, result does not exclude early acute HCV infection. Non Reactive - Antibodies to Hepatitis C virus (HCV) were not detected, result does not exclude early acute HCV infection. us Jorge Shelley DO LAB - CHEMISTRY ORDERABLES Fin al Result [facility] [address] [facility] [place] [address] from Last 3 Months or Most Recently Relevant to Health Maintenance Insurance ANTHEM ANTHEM ANTHEM Advance Directives * Full Code (Latest Code Status on File) Date Activated Date Inactivated Comments 08/29/2016 5:51 AM 08/31/2016 5:31 PM Care Teams Life Skills Coordinator Volunteer Relationship Specialty Start Date End Date Silvia Sanders, [facility] [address] [facility] [place] [address] PCP - General 05/21/22
--- OUTSIDE RECORDS SUMMARY | 2024-08-26 19:07 | XMS_ITS | Clinical Summary ---
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 Gender Identity Not on file Sexual Orientation [...] 09/26/2017 COVID-19 Vaccine (1 - season) 2024 DTaP, Tdap and Td Vaccines (8 - Td or Tdap) 05/09/2028 05/09/2018, 12/10/2013, 02/16/2005, Additional history exists Pneumococcal Vaccine: Pediatrics (0 to 5 Years) and At-Risk Patients (6 to 49 Years) Aged Out 04/05/2000 No longer eligible [...] patient's age to complete this topic Insurance [facility] Care Teams Road Patcher Relationship Specialty Start Date End Date Caty Danielson NP [address] [place] [address] PCP - General Nurse Practitioner Family 06/23/21
[2024-08-26 19:35] VITALS: BP 138/81; PULSE 66; PULSE 70; RESP 14; RESP 20; TEMP 36.8; O2SAT 100; O2SAT 99
[2024-08-26 19:53] LABS: Basophils Percent Auto 0.6 % (0.2-1.2); Eosinophils Absolute Auto 0.1 K/mm3 (0-0.3); Eosinophils Percent Auto 1.9 % (0-4.4); Hematocrit 38.2 % (42.0-52.0); Hemoglobin 12.8 g/dL (14.0-18.0); Immature Granulocyte Absolute 0.01 K/mm3 (0.00-0.031); Immature Granulocyte Percent A 0.2 % (0-0.5); Lymphocytes Absolute Auto 2.47 K/mm3 (0.9-3.2); Lymphocytes Percent Auto 39.3 % (18.3-44.2); Mean Corpuscular HGB Conc 33.5 g/dl (32-36); Mean Corpuscular Hemoglobin 31.4 pg (26-34); Mean Corpuscular Volume 93.9 fl (80-100); Monocytes Absolute Auto 0.5 K/mm3 (0.1-0.6); Monocytes Percent Auto 7.2 % (2.6-8.5); Neutrophils Absolute Auto 3.2 K/mm3 (1.3-6.7); Neutrophils Percent Auto 50.8 % (45.5-73.1); Platelet Count Result 204 k/mm3 (150-375); Red Blood Count 4.07 M/mm3 (4.6-6.20); Red Cell Distribution Width 11.6 % (11.5-14.5); White Blood Count 6.3 K/mm3 (4.5-10.0)
[2024-08-26 20:05] LABS: Add Urine Microscopic? NO; Appearance Urine Clear (Clear); Bilirubin Urine Negative (Negative); Blood Urine Negative (Negative); Color Urine Yellow (Yellow); Glucose Urine UA Negative (Negative); Ketones Urine Negative (Negative); Leukocyte Esterase Ur Negative LEU/UL (Negative); Nitrate Urine Negative (Negative); Protein Urine Negative (Negative); pH Urine 6.5 (5.0-9.0)
[2024-08-26 20:06] LABS: Alanine Aminotransferase 18 U/L (6-50); Albumin Level 4.8 g/dL (3.5-5.1); Alkaline Phosphatase 73 U/L (38-126); Anion Gap 11 mmol/L (4-12); Aspartate Amino Transferase 38 U/L (17-59); Bilirubin,Total 0.4 mg/dL (0.2-1.3); Blood Urea Nitrogen 27 mg/dL (9-20); Calcium 9.4 mg/dL (8.4-10.2); Carbon Dioxide 26 mmol/L (22-30); Chloride 103 mmol/L (98-107); Estimated CRCL calculation 97 ml/min; Estimated Glomerular Filt Rate > 60; Glucose 100 mg/dL (65-110); Lipase 102 U/L (23-300); Potassium 3.9 mmol/L (3.4-5.0); Sodium 140 mmol/L (137-145)
[2024-08-26] MEDS: KETOROLAC 15 MG/ML VIAL (*BKC) IV PUSH (20:24)
[2024-08-26] MEDS: MORPHINE SULFATE (*CRX) 4 MG/ML INJ IV PUSH (20:25)
--- OUTSIDE RECORDS SUMMARY | 2024-08-26 20:29 | XMS_ITS | Continuity of Care Document ---
Author Organization [facility] Address [address] [place] [address] Phone Care Team Providers Care Sociology Research Assistant Name Role Phone No Information Unavailable Unavailable [...] Diagnoses Date Provider Providers Copied on Encounter [facility], [address] [place] [address], [id number], tel:[phone] No Information Sep-1 2-200 8 No Information [facility], [address] [place] [address], [id number], tel:[phone] [facility] No Information Sep-1 2-200 8 Erthall Pablo. [address] [place], [place], [id number], . tel:[phone] Referring Provider: Edward Patel, [address], [place], [address] . tel:[phone] [facility], [address] [place] [address], [id number], tel:[phone] [facility] No Information Dec-2 9-200 8 Young Ti. [address] [place], [place], [id number], . tel:[phone] [facility], [address] [place] [address], [id number], tel:[phone] [facility] No Information Dec-2 5-200 8 Young Ti. [address] [place] [address], [id number], [place]. tel:[phone] Referring Provider: Edward Patel, [address], [place], [address] . tel:[phone] [facility], [address] [place] [address], [id number], tel:[phone] [facility] No Information Aug-0 8-200 8 Erthall Pablo. [address] [place] [address], [id number], . tel:[phone] Referring Provider: Edward Patel, [address], [place], [address] . tel:[phone] [facility], [address] [place] [address], [id number], tel:[phone] [facility] No Information Nov-2 4-200 8 Erthall Pablo. [address] [place] [address], [id number], [place]. tel:[phone] Referring Provider: Edward Patel, [facility] [address], [place], [address] . tel:[phone] [facility], [address] [place] [address], [id number], tel:[phone] [facility] No Information 8 Kg Luke. [address] [place] [address], [id number], . tel:[phone] Referring Provider: Edward aPtel, [address] [place], [place] [address], [address] . tel:[phone] Office/outpat ient visit,[facility], [facility], [address] [place] [address], [id number], tel:[phone] [facility] No Information 8 Kg Luke. [address] [place] [address], [id number], . tel:[phone] Referring Provider: Edward Patel, [address] [place], [place] [address], [address] . tel:[phone] [facility], [address] [place] [address], [id number], tel:[phone] [facility] No Information 8 Kg Luke. [address] [place] [address], [id number], . tel:[phone] Family History Family Member Type Diagnosis Age At Onset No Information Payers Payer name Insurance type Covered alliance party ID Authorpatriciaa tihome(s) [employer]link [id number] [facility] [id number] Social History Type Description Quantity Date Captured [...]
--- OUTSIDE RECORDS SUMMARY | 2024-08-26 20:29 | XMS_ITS | Clinical Summary ---
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 Care Teams Staffing Director Relationship Specialty Start Date End Date Caty Danielson NP [address] [place] [address] PCP - General Nurse Practitioner Family 06/23/21
--- OUTSIDE RECORDS SUMMARY | 2024-08-26 20:29 | XMS_ITS | Clinical Summary ---
Author Organization [facility] Address [address] [place] [address] Care Team Providers Care Chain Puller Name Role Phone Silvia Sanders PA-C Primary Care Provider Source Comments [facility],non-owned Affiliates and Associated Physician Practices is amultiple site organization consisting of ambulatory clinics and hospital sitesin [place], [place], [place] and [place]. This disclosure is being madepursuant to the Care Everywhere program and may not contain all information available regarding this patient. Last updated 18.[facility] Allergies Active Allergy Reactions Criticality Noted Date [...] long night in OSH and transfer to [facility]. With patient age would have concern for viral hepatitis or mononucleosis. Cholelithiasis or cholecystitis less likely with normal outside CT/US, however will have radiology review CT/US at [facility]. Cholestasis remains a possibility however, less likely given presentation at OSH. Will have narrow differential based on history of patient. Plan: - Admit to [place] Team: Dr. Shelley - Advance diet as tolerated to regular - Vitals Q8H - D5 1/2 NS @ 125 ml/hr, will decrease as tolerates PO - I/Os - CT/US outside consult - Consider mono and viral hepatitis testing - Repeat CBC, CMP, and Dbili at 1300 Lumbosacral spondylosis without myelopathy 03/24 Coarctation of aorta 05/22/2011 Assessment & Plan (05/21/2022 4:15 PM GAS PLANT SPECIALIST): IMPRESSION: Tonny is a 21-year-old young man [...] which can be done electively, to exclude fpc complications such as an aneurysm at the [...] plan on seeing him back in my [facility] clinic in six months' time at [...] risk. Assessment & Plan (03/31/2014 8:44 AM GAS PLANT SPECIALIST): IMPRESSION: Tonny is an 13-year-old young man [...] plan on seeing him back in my [facility] clinic in six months' time at [...] plan on seeing him back in my [facility] clinic in one years' time at which [...] on file Legal Sex Male 5:39 AM GAS PLANT SPECIALIST Gender Identity Not on file Sexual Orientation Not on file Last Filed Vital Signs Vital Sign Reading Time Taken Comments Blood Pressure 119/68 06/20/2022 8:45 AM GAS PLANT SPECIALIST Pulse 67 06/20/2022 8:45 AM GAS PLANT SPECIALIST Temperature 36.8 C (98.3 F) 06/20/2022 7:26 AM GAS PLANT SPECIALIST Respiratory Rate 20 06/20/2022 7:26 AM GAS PLANT SPECIALIST Oxygen Saturation 100% 06/20/2022 8:45 AM GAS PLANT SPECIALIST Inhaled Oxygen Concentration 40% 09/06/2009 3 :45 PM CDT Weight 105.4 kg (232 lb 5.8 oz) 06/20/2022 7:07 AM GAS PLANT SPECIALIST Height 172.7 cm (5' 7.99 ) 06/20/2022 7:07 AM CS T Body Mass Index 35.34 06/20/2022 7:07 AM GAS PLANT SPECIALIST Plan of Treatment Health Maintenance Due Date [...] Reactive Non Reactive 08/31/2016 9:30 AM CDT [facility] HBsAg Non Reactive Non Reactive 08/31/2016 9:30 AM CDT [facility] HBc Antibody IgM Non Reactive Non Reactive 08/31/2016 9:30 AM CDT [facility] HCV Antibody Screen Non Reactive Non Reactive 08/31/2016 9:30 AM CDT [facility] HCV S/C Ratio 0.17 0.00 - 0.79 08/31/2016 9:30 AM CDT [facility] Comment: Ftsfaj-ou-jdyuag ratio (S/CO) <0.80: Non Reactive Blood BLOOD SPECIMEN / Unknown Lab Venipuncture / Unknown 08/29/2016 1:04 PM CDT 08/29/2016 1:15 PM CDT Narrative [facility] - 08/31/2016 9:30 AM CDT Non Reactive - Antibodies to Hepatitis C virus (HCV) were not detected, result does not exclude early acute HCV infection. Non Reactive - Antibodies to Hepatitis C virus (HCV) were not detected, result does not exclude early acute HCV infection. us Jorge Shelley DO LAB - CHEMISTRY ORDERABLES Fin al Result [facility] [address] [facility] [address] from Last 3 Months or Most Recently Relevant to Health Maintenance Insurance ANTHEM ANTHEM ANTHEM Advance Directives * Full Code (Latest Code Status on File) Date Activated Date Inactivated Comments 08/29/2016 5:51 AM 08/31/2016 5:31 PM Care Teams Chain Puller Relationship Specialty Start Date End Date Silvia Sanders, PARox[facility] [address] [place] [address] PCP - General 05/21/22
--- OUTSIDE RECORDS SUMMARY | 2024-08-26 20:29 | XMS_ITS | Encounter Summary ---
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
[2024-08-26 20:32] VITALS: BP 151/98; PULSE 67; RESP 16; O2SAT 100
--- NOTE | 2024-08-26 21:33 | ED.ABDPAIN ---
HPI - Abdominal Pain General Chief Complaint: Abdominal Pain Stated Complaint: abd/groin pain Time Seen by Provider: 08/26/24 19:28 History of Present Illness HPI narrative: 23-year-old otherwise healthy male presenting to the emergency room with chief complaint of bilateral lower quadrant abdominal pain. He states that the pain is where his previous inguinal hernia surgeries were conducted. Last surgeries over 10 years ago while he was a child and he had mesh placed there. Denies any fever, chills, urinary complaints. No scrotal enlargement or testicular pain. States that pain has been worsening right-sided versus left-sided groin for about 1 week. Has not followed up with anybody about this. Does not CS surgeon. Has not take any medications for symptom control. He was otherwise in his normal state of health. Denies any trauma or injury Related Data Home Medications ?Medication ?Instructions ?Recorded ?Confirmed ?Last Taken ?Type omeprazole 40 mg capsule,delayed 40 mg PO DAILY 10/07/23 07/15/24 Unknown History release Allergies Allergy/AdvReac Type Severity Reaction Status Date / Time amoxicillin Allergy Unknown Verified 08/26/24 19:32 Cephalosporins Allergy Unknown Verified 08/26/24 19:32 lisinopril Allergy Unknown Verified 08/26/24 19:32 Review of Systems Review of Systems: As reviewed above in HPI [facility] Past Medical History Medical History Gastric intestinal metaplasia Seasonal allergic rhinitis Anxiety GERD (gastroesophageal reflux disease) Coarctation of aorta, congenital Low testosterone Hypothyroid Surgical History Surgical History History of repair of pyloric stenosis S/P orchiopexy H/O aortic coarctation repair Family History Family History Sibling Depression Anxiety Grandparent Diabetes mellitus Grandparent Lung cancer Alcoholism Sibling Hypothyroid Alcoholism Father Cancer Mother Hypertension Social History Social History Smoking status: Former smoker Tobacco type: e-cigarettes/vaping Smoking end date: 05/06/19 Alcohol intake: current Drinks per week: 1 Alcohol use details: at most, 1 beer/week, and not every week Substance use: current Substance use type: marijuana Other substance usage details: Occasional usage Last use: 09/03/2021 Lack of Transportation: No Lack of Food: Never True Current Housing: I Have Housing Concerned About Future Housing: No Difficulty Paying Gas/Electric Bills: No Difficulty Paying for Meds: No Currently Unemployed: No Education: Associate Degree Difficulty w/ Childcare or Family Care: No Living arrangements: with friend(s) Occupation/Education: occupation 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 Mucous membranes moist. NECK: Supple. CHEST: [Clear to auscultation. No respiratory distress.] HEART: [Regular rate and rhythm]. No murmur heard. [Normal peripheral pulses.] ABDOMEN: [Soft, nondistended], [nontender], [No rigidity or guarding] no palpable masses in the inguinal region, testicular examination is unremarkable without any penile pain or tenderness, no scrotal enlargement or pain in the testicle exam. No epididymal tenderness, positive cremasteric reflex bilaterally. EXTREMITIES: Normal range of motion. [No edema.] SKIN: Warm, dry, no rash. NEURO: [No focal deficits]. Alert and oriented [x3.] PSYCH: [Normal mood and affect.] Course Vital Signs Vital signs: Vital Signs Temperature 36.8 C 08/26/24 19:35 Pulse Rate 70 08/26/24 19:35 Respiratory Rate 20 08/26/24 19:35 Blood Pressure 138/81 08/26/24 19:35 Pulse Oximetry 99 08/26/24 19:35 Oxygen Delivery Room Air 08/26/24 19:35 Temperature 36.8 C 08/26/24 19:35 Pulse Rate 67 08/26/24 20:32 Respiratory Rate 16 08/26/24 20:32 Blood Pressure 151/98 H 08/26/24 20:32 Pulse Oximetry 100 08/26/24 20:32 Oxygen Delivery Room Air 08/26/24 19:35 MDM - Abdominal Pain MDM Narrative Medical decision making narrative: 23-year-old otherwise healthy male presenting to the emergency depart with inguinal pain bilaterally right worse than left. Going on for about 1 week and he states at the side where his previous inguinal hernias were repaired. He had ankle surgery in childhood about 10+ years ago. He is otherwise well-appearing not any acute distress and has a soft nontender nondistended abdomen. Testicular examination is unremarkable, normal vital signs and unremarkable belly examination. Suspicion presently is for potential inguinal hernia recurrence, eroding mesh, gastroenteritis, low suspicion other intra-abdominal process such as incarcerated hernia, bowel ischemia or appendicitis. Laboratory studies were drawn, CT abdomen pelvis was ordered he was given morphine for analgesia as well as Toradol and re-evaluated. Patient's laboratory studies reassuring, no leukocytosis or significant anemia. Normal platelet count. Electrolytes are unremarkable. Normal renal function, normal hepatic function. Negative lipase. Urinalysis without any findings. CT scan shows no acute findings within the abdomen or pelvis. Patient was re-evaluated had improvement in pain control. He is safe for discharge home at this time with regular PCP follow-up. Patient will be provided some pain medications upon discharge. Medical Records Attestation: I reviewed the patient's medical records. Lab Data Attestation: I reviewed the patient's lab results. 08/26/24 19:49 08/26/24 19:49 Labs: Lab Results 08/26/24 08/26/24 Range/Units 19:49 19:59 WBC 6.3 (4.5-10.0) K/mm3 RBC 4.07 L (4.6-6.20) M/mm3 Hgb 12.8 L (14.0-18.0) g/dL Hct 38.2 L (42.0-52.0) % MCV 93.9 (80-100) fl MCH 31.4 (26-34) pg MCHC 33.5 (32-36) g/dl RDW 11.6 (11.5-14.5) % Plt Count 204 (150-375) k/mm3 MPV 11.0 H (7.4-10.4) fl Immature Gran % (Auto) 0.2 (0-0.5) % Neut % (Auto) 50.8 (45.5-73.1) % Lymph % (Auto) 39.3 (18.3-44.2) % [place] % (Auto) 7.2 (2.6-8.5) % Eos % (Auto) 1.9 (0-4.4) % Baso % (Auto) 0.6 (0.2-1.2) % Lymph # (Auto) 2.47 (0.9-3.2) K/mm3 [place] # (Auto) 0.5 (0.1-0.6) K/mm3 Eos # (Auto) 0.1 (0-0.3) K/mm3 Baso # (Auto) 0.0 (0.0-0.1) K/mm3 Abs Immat Gran (auto) 0.01 (0.00-0.031) K/mm3 Absolute Neuts (auto) 3.2 (1.3-6.7) K/mm3 Absolute Nucleated RBC 0.000 (0.0-0.012) K/mm3 Nucleated RBC % 0.0 (0.0-0.2) % Sodium 140 (137-145) mmol/L Potassium 3.9 (3.4-5.0) mmol/L Chloride 103 (98-107) mmol/L Carbon Dioxide 26 (22-30) mmol/L Anion Gap 11 (4-12) mmol/L BUN 27 H (9-20) mg/dL Creatinine 1.00 (0.7-1.3) mg/dL Estim Creat Clear Calc 97 ml/min Estimated GFR > 60 (59 - ) Glucose 100 (65-110) mg/dL Calcium 9.4 (8.4-10.2) mg/dL Total Bilirubin 0.4 (0.2-1.3) mg/dL AST 38 (17-59) U/L ALT 18 (6-50) U/L Alkaline Phosphatase 73 (38-126) U/L Total Protein 8.0 (6.3-8.2) g/dL Albumin 4.8 (3.5-5.1) g/dL Lipase 102 (23-300) U/L Urine Color Yellow (Yellow) Urine Appearance Clear (Clear) Urine pH 6.5 (5.0-9.0) Ur Specific [place] 1.030 (1.001-1.035) Urine Protein Negative (Negative) mg/dL Urine Glucose (UA) Negative (Negative) mg/dL Urine Ketones Negative (Negative) mg/dL Ur Blood (Man) Negative (Negative) Urine Nitrate Negative (Negative) Urine Bilirubin Negative (Negative) Urine Urobilinogen 1.0 (<2.0) mg/dL Leukocyte Esterase Rfl Negative (Negative) DEANDRE/UL Imaging Data Attestation: I personally reviewed and interpreted this imaging study as follows: My impression: Impressions Abdomen/Pelvis CT 08/26/24 21:01 IMPRESSION: No acute findings within the abdomen or pelvis, as detailed above. Radiologist's impression: ITS Impressions Abdomen/Pelvis CT 08/26/24 21:01 IMPRESSION: No acute findings within the abdomen or pelvis, as detailed above. Discharge Plan Discharge Clinical Impression: Abdominal pain, lower, History of bilateral inguinal hernia repair Patient Disposition: Home Condition: Stable Instructions: Antibiotic Form, Abdominal Pain (ED) Additional Instructions: Your CT scan shows no findings within the abdomen or pelvis. Your laboratory studies are all normal. We will send you home with some pain control medications and encouraged to follow-up with your regular primary care provider. No urgent or emergent interventions are needed and no surgical consult needed at this time. Patient Language: Kyrgyz Prescriptions: New ketorolac 10 mg tablet 10 mg PO Q8H PRN (Reason: pain) 5 Days Qty: 20 0RF Rx Instructions: maximum total duration of 5 days from all oral, intranasal, or parenteral formulations dicyclomine 20 mg tablet 20 mg PO TID PRN (Reason: abdominal pain) Qty: 20 0RF ondansetron 4 mg tablet,disintegrating 4 mg PO Q8H PRN (Reason: nausea and vomiting) Qty: 10 0RF No Action meloxicam 15 mg tablet 15 mg PO DAILY Qty: 30 1RF omeprazole 40 mg capsule,delayed release(DR/EC) 40 mg PO DAILY levothyroxine 50 mcg tablet 50 mcg PO DAILY Qty: 30 3RF Follow-up/Referrals: Vanesa Bello MD [Primary Care Provider] - Time of Disposition: 21:40
[2024-08-26 22:04] VITALS: BP 140/72; PULSE 60; RESP 16; O2SAT 97
== END 2024-08-26 22:04 | disposition home or self-care (01) ==
PROVIDERS: Emergency Provider Student in an Organized Health Care Education/Training Program; PCP Family Medicine
DX: R10.32 Left lower quadrant pain (principal); R10.31 Right lower quadrant pain; K21.9 Gastro-esophageal reflux disease without esophagitis; E03.9 Hypothyroidism, unspecified; F41.9 Anxiety disorder, unspecified; Z87.891 Personal history of nicotine dependence
CPT/HCPCS: 36415; 74177; 80053; 81003; 83690; 85025; 96374; 96375; 99284; J1885; J2270; Q9967